=== PATIENT | female | born 1975 | race Caucasian/White ===

== ENCOUNTER 2016-05-26 02:31 | Inpatient (IN) | payer OTHER ==
[~2016-05-26] VITALS: Ht 175.3 cm; Wt 72.0 kg
[2016-05-26] MEDS ORDERED: ONDANSETRON INJ 2 MG/ML 2 ML VIAL IV STA (02:44)
[2016-05-26] MEDS ORDERED: SODIUM CHLORIDE 0.9% 1000ML 1,000 ML IV STA ×2 (02:44)
[2016-05-26] MEDS ORDERED: HYDROmorphone INJ 2 MG/ML SYR/VIAL IV STA (02:44)
[2016-05-26] MEDS ORDERED: OPTIRAY 320 IV PRN (03:00)
[2016-05-26 03:02] LABS: BASO % 0.1 %; BASO ABS # 0.01 K/uL (0-0.2); COMPLETE YES; EOS % 0.2 %; HEMATOCRIT 37.5 % (37-47); IG% 0.2 %; LYMPH % 24.6 %; LYMPH ABS # 3.07 K/uL (1.2-3.4); MEAN CELL VOLUME 90.8 fL (80-100); MEAN CORPUSCULAR HEMOGLOBIN 31.7 pg (25-34); MEAN CORPUSCULAR HGB CONC 34.9 g/dl (32-36); MEAN PLATELET VOLUME 9.7 fL (7.4-10.4); MONO % 5.5 %; NEUT % 69.4 %; PLATELET COUNT 134 K/uL (130-400); RED BLOOD COUNT 4.13 M/uL (4.2-5.4)
[2016-05-26 03:11] LABS: PARTIAL THROMBOPLASTIN RATIO 0.8; PROTHROMBIN TIME (PATIENT) 10.3 SECONDS (9.0-12.0)
[2016-05-26 03:12] LABS: ISTAT CREATININE 0.7 mg/dl (0.6-1.3); ISTAT HEMOGLOBIN 12.9 g/dl (12.0-16.0); ISTAT IONIZED CALCIUM 1.05 mmol/l (1.12-1.32)
[2016-05-26 03:18] LABS: URINE APPEARANCE CLEAR (CLEAR); URINE BILIRUBIN NEG (NEG); URINE COLOR YELLOW; URINE EPITHELIAL CELL AUTO >30 /lpf (0-5); URINE NITRITE NEG (NEG); URINE PH 6.5 (4.5-7.5); URINE SPECIFIC GRAVITY 1.017 (1.000-1.030); UROBILINOGEN NEG (NEG); ZZUR CULT IF INDIC CLEAN CATCH YES
[2016-05-26 03:19] LABS: MANUAL MICROSCOPIC REQUIRED? NO; REVIEW REQ? YES
[2016-05-26 03:22] LABS: ALT/SGPT 163 U/L (12-78); AST/SGOT 113 U/L (15-37); BLOOD UREA NITROGEN 11 mg/dl (7-18); BUN/CREATININE RATIO 12.3 (10-20); CALCIUM 8.2 mg/dl (8.5-10.1); CARBON DIOXIDE 24 mmol/L (21-32); CHLORIDE 106 mmol/L (98-107); CREATININE 0.88 mg/dl (0.60-1.20); GLUCOSE 102 mg/dl (70-99); POTASSIUM 3.3 mmol/L (3.5-5.1); SODIUM 141 mmol/L (136-145)
[2016-05-26 03:28] LABS: ALKALINE PHOSPHATASE 57 U/L (45-117)
[2016-05-26 03:30] LABS: PREG INTERNAL NEGATIVE QC NEG CLEAR BACKGROUND; PREG INTERNAL POSITIVE QC POS CONTROL LINE
[2016-05-26 03:32] LABS: URINE MUCUS PRESENT (NONE PRSENT)
[2016-05-26] MEDS ORDERED: HYDROmorphone INJ 1 MG/ML SYR IV STA (03:33)
[2016-05-26] MEDS ORDERED: LEVO150T PO ×2 (03:45)
[2016-05-26] MEDS ORDERED: TRAM-10 PO ×2 (03:46)
[2016-05-26] MEDS ORDERED: ONDA4TAB46 PO ×2 (03:46)
[2016-05-26] MEDS ORDERED: MULT-506 PO ×2 (03:46)
[2016-05-26] MEDS ORDERED: BCPILLS PO ×2 (03:46)
--- NOTE | 2016-05-26 04:38 | EMERGENCY ROOM VISIT NOTE ---
History First contact with patient: 02:37 Chief Complaint: RESPIRATORY PROBLEMS Stated Complaint: S/P SURGERY TUESDAY CAN'T BREATHE Nursing Triage Summary: Patient presents with c/o SOB that awoke patient from sleep around 0200 this morning. Associates lightheadedness, diaphoresis, and weakness. Hx: liver embolization on Tuesday. 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 This is the second time this was done. No Complications with the first one. Patient states the pain started abruptly 2 hours ago. She describes it as severe, 8 out of 10. Nothing makes it better or worse. Patient is on control. She does not smoke. No history DVT, PE or heart disease. No family history of DVT or PE. There is a family history of heart disease. Patient denies fever, chills, vomiting, diarrhea, leg pain or swelling, back pain. Patient's liver specialist is Dr. Lau and her surgeon was Dr. Ibrahim at [facility]. Review of Systems See HPI for pertinent positives & negatives. A total of 10 systems reviewed and were otherwise negative. Past Medical/Surgical History Hypothyroidism, liver embolization Social History Smoking Status: Never Smoker Smokeless Tobacco Use: No Drug Use: none Marital Status: Housing Status: lives with family Current/Historical Medications Scheduled Control Pills ( Control Pills), 1 TAB PO DAILY Levothyroxine Sodium (Synthroid), 150 MCG PO DAILY Multivitamin (Multivitamin), 1 TAB PO DAILY Scheduled PRN Ondansetron Hcl (Zofran), 4 MG PO Q6 PRN for Nausea Tramadol (Ultram), 50 MG PO Q6 PRN for Pain Allergies Coded Allergies: Penicillins (Verified Allergy, Unknown, 05/26/16) Vancomycin (Verified Allergy, Unknown, ANAPHYLAXIS, 05/26/16) Adhesives (Verified Adverse Reaction, Unknown, "SENSITIVE TO TAPE", 05/26/16 ) Physical Exam Vital Signs Date Time Temp Pulse Resp B/P Pulse Ox O2 Delivery O2 Flow Rate FiO2 05/26/16 05:06 87 16 104/55 100 05/26/16 04:28 87 16 104/55 100 Room Air 05/26/16 03:31 68 16 112/62 100 Room Air 05/26/16 02:50 Room Air 05/26/16 02:50 Room Air 05/26/16 02:49 73 05/26/16 02:34 100 Room Air 05/26/16 02:34 36.5 78 26 110/70 99 Room Air Physical Exam VITALS: Vitals are noted on the nurse's note and reviewed by myself. Vital signs stable. GENERAL: White female anxious appearing who appears in pain, in no acute distress, nondiaphoretic, well-developed well-nourished. SKIN: The skin was without rashes, erythema, edema, or bruising. There is no tenting of the skin. Capillary reflex less than 2 seconds. HEAD: Normocephalic atraumatic. EARS: External auditory canals clear, tympanic membranes pearly campa without erythema or effusion bilaterally. EYES: Pupils equal round and reactive to light and accommodation. Conjunctivae without injection, sclerae without icterus. Extraocular movements intact. NOSE: Patent, turbinates without inflammation or discharge. MOUTH: Mucous membranes moist. Pharynx without erythema or exudate. Uvula midline. Airway patent. Tongue does not deviate. NECK: Supple without nuchal rigidity. No lymphadenopathy. No thyromegaly. Cervical spine is nontender. No JVD. HEART: Regular rate and rhythm without murmurs gallops or rubs. LUNGS: Clear to auscultation bilaterally without wheezes, rales or rhonchi. No dullness to percussion. No retractions or accessory muscle use. ABDOMEN: Positive bowel sounds x 4. Normal tympanic percussion. Soft, tender to palpation right upper quadrant, no CVA tenderness, without masses or organomegaly. Pruett sign negative. No guarding or rebound tenderness. MUSCULOSKELETAL: No muscle atrophy, erythema, or edema noted. NEURO: Patient was alert and oriented to person place and time. Normal sensation to light and sharp touch. No focal neurological deficits. Medical Decision & Procedures Laboratory Results 05/26/16 02:49 Red Blood Count 4.13, Mean Corpuscular Volume 90.8, Mean Corpuscular Hemoglobin 31.7, Mean Corpuscular Hemoglobin Concent 34.9, Mean Platelet Volume 9.7, Neutrophils (%) (Auto) 69.4, Lymphocytes (%) (Auto) 24.6, Monocytes (%) (Auto) 5.5, Eosinophils (%) (Auto) 0.2, Basophils (%) (Auto) 0.1, Neutrophils # (Auto) 8.68, Lymphocytes # (Auto) 3.07, Monocytes # (Auto) 0.69, Eosinophils # (Auto) 0.02, Basophils # (Auto) 0.01 05/26/16 02:49 Test 05/26/16 02:49 05/26/16 02:55 05/26/16 03:07 White Blood Count 12.50 K/uL (4.8-10.8) Red Blood Count 4.13 M/uL (4.2-5.4) Hemoglobin 13.1 g/dL (12.0-16.0) Hematocrit 37.5 % (37-47) Mean Corpuscular Volume 90.8 fL (80-100) Mean Corpuscular Hemoglobin 31.7 pg (25-34) Mean Corpuscular Hemoglobin Concent 34.9 g/dl (32-36) Platelet Count 134 K/uL (130-400) Mean Platelet Volume 9.7 fL (7.4-10.4) Neutrophils (%) (Auto) 69.4 % Lymphocytes (%) (Auto) 24.6 % Monocytes (%) (Auto) 5.5 % Eosinophils (%) (Auto) 0.2 % Basophils (%) (Auto) 0.1 % Neutrophils # (Auto) 8.68 K/uL (1.4-6.5) Lymphocytes # (Auto) 3.07 K/uL (1.2-3.4) Monocytes # (Auto) 0.69 K/uL (0.11-0.59) Eosinophils # (Auto) 0.02 K/uL (0-0.5) Basophils # (Auto) 0.01 K/uL (0-0.2) RDW Standard Deviation 43.2 fL (36.4-46.3) RDW Coefficient of Variation 13.1 % (11.5-14.5) Immature Granulocyte % (Auto) 0.2 % Immature Granulocyte # (Auto) 0.03 K/uL (0.00-0.02) Prothrombin Time 10.3 SECONDS (9.0-12.0) Prothromb Time International Ratio 1.0 (0.9-1.1) Activated Partial Thromboplast Time 21.1 SECONDS (21.0-31.0) Partial Thromboplastin Ratio 0.8 Est Creatinine Clear Calc Drug Dose 89.7 ml/min Estimated GFR () 95.9 Estimated GFR (Non- 82.8 BUN/Creatinine Ratio 12.3 (10-20) Calcium Level 8.2 mg/dl (8.5-10.1) Total Bilirubin 0.3 mg/dl (0.2-1) Direct Bilirubin 0.1 mg/dl (0-0.2) Aspartate Amino Transf (AST/SGOT) 113 U/L (15-37) Alanine Aminotransferase (ALT/SGPT) 163 U/L (12-78) Alkaline Phosphatase 57 U/L (45-117) Total Creatine Kinase 39 U/L (26-192) Creatine Kinase MB < 0.5 ng/ml (0.5-3.6) Creatine Kinase MB Ratio (0-3.0) Troponin I < 0.015 ng/ml (0-0.045) Total Protein 6.6 gm/dl (6.4-8.2) Albumin 3.0 gm/dl (3.4-5.0) Lipase 2258 U/L (73-393) Human Chorionic Gonadotropin, Qual NEG (NEG) Bedside Hemoglobin 12.9 g/dl (12.0-16.0) Bedside Hematocrit 38 % (37-47) Bedside Sodium 139 mEq/L (135-144) Bedside Potassium 3.2 mEq/L (3.3-5.0) Bedside Chloride 103 mEq/L (101-112) Bedside Total CO2 20 mEq/l (24-31) Anion Gap 20.0 mmol/L (16-25) Bedside Blood Urea Nitrogen 10 mg/dl (7-18) Bedside Creatinine 0.7 mg/dl (0.6-1.3) Bedside Glucose (other) 108 mg/dl (70-99) Bedside Ionized Calcium (Steve) 1.05 mmol/l (1.12-1.32) Urine Color YELLOW Urine Appearance CLEAR (CLEAR) Urine pH 6.5 (4.5-7.5) Urine Specific [place] 1.017 (1.000-1.030) Urine Protein NEG (NEG) Urine Glucose (UA) NEG (NEG) Urine Ketones NEG (NEG) Urine Occult Blood NEG (NEG) Urine Nitrite NEG (NEG) Urine Bilirubin NEG (NEG) Urine Urobilinogen NEG (NEG) Urine Leukocyte Esterase MODERATE (NEG) Urine WBC (Auto) 5-10 /hpf (0-5) Urine RBC (Auto) 0-4 /hpf (0-4) Urine Hyaline Casts (Auto) 0 /lpf (0-5) Urine Epithelial Cells (Auto) >30 /lpf (0-5) Urine Bacteria (Auto) 1+ (NEG) Urine Renal Epithelial Cells /lpf (0-5) Urine Mucus PRESENT (NONE PRSENT) Medications Administered Medications (Trade) Dose Ordered Sig/Jurgen Route Start Time Stop Time Status Last Admin Dose Admin Sodium Chloride 1,000 ml @ 999 mls/hr Q1H1M STAT IV 05/26/16 02:44 05/26/16 03:44 DC 05/26/16 02:56 999 MLS/HR Sodium Chloride (Nss 1000ml) 1,000 ml @ 125 mls/hr Q8H STAT IV 05/26/16 02:44 05/26/16 10:43 05/26/16 03:39 125 MLS/HR Hydromorphone HCl (Dilaudid Inj) 0.5 mg ONE STAT IV 05/26/16 02:44 05/26/16 02:46 DC 05/26/16 02:55 0.5 MG Ondansetron HCl (Zofran Inj) 4 mg NOW STAT IV 05/26/16 02:44 05/26/16 02:46 DC 05/26/16 02:53 4 MG Hydromorphone HCl (Dilaudid Inj) 1 mg NOW STAT IV 05/26/16 03:33 05/26/16 03:34 DC 05/26/16 03:40 1 MG Hydromorphone HCl (Dilaudid Inj) 1 mg Q4 PRN IV 05/26/16 05:15 06/09/16 05:14 05/26/16 05:16 1 MG Potassium Chloride (Kcl 10 Meq / Wtr) 10 meq STK-MED ONCE IV 05/26/16 05:07 05/26/16 05:08 DC 05/26/16 05:15 10 MEQ ED Course Prior records/ancillary studies reviewed. Triage Nursing notes reviewed. Additional history obtained from family The patient's history was concerning for right-sided chest and abdominal pain. Differential diagnosis: Etiologies such as postsurgical complication, PE, cardiac, appendicitis, diverticulitis, PUD, biliary pathology, UTI, pancreatitis, obstruction, mesenteric ischemia, aortic pathology, infections, inflammatory bowel disease, renal colic, as well as others were entertained. Physical examination findings: As above. ER treatment provided: Dilaudid, Zofran, IV fluids On reassessment the patient felt better. Diagnostics interpreted by me: ECG: Normal sinus, normal intervals, no acute ST-T wave changes. Impression normal sinus rhythm interpreted by myself The labs revealed elevated lipase. Minimally elevated LFTs most likely from recent procedure Leukocytosis. Stable H&H Imaging studies: TA CHEST: No acute intrathoracic process. No evidence of pulmonary embolism or aortic dissection. CT ABDOMEN & PELVIS: Compared to 03/26/2015. Dense material in the right hepatic lobe compatible with history of embolization with central low attenuation. Subcutaneous stranding in the right inguinal region may be related to recent instrumentation or inflammatory/infectious process. Prominent parauterine vessels, can be seen with pelvic congestion syndrome. Calcific density in the uterus again noted. Trace pelvic free fluid. No organized fluid collections or free air. Radiologist: Jennifer Chavez M.D. Chest x-ray with no free air, pneumothorax or consolidation per my interpretation Consultation: A consultation was placed with the hepatobiliary surgeon at [facility], Dr. Sarkar. The case was discussed and diagnostics were reviewed. He states the patient most likely is postsurgical pain and pancreatitis. He recommends patient be admitted at our facility. I Consulted medicine, Dr. Ortiz and will evaluate the patient. Exam and history seem consistent with pancreatitis and postsurgical pain. Patient will be evaluated by medicine for possible admission. By the evaluation outlined above emergent etiologies such as appendicitis, diverticulitis, PUD, biliary pathology, UTI, obstruction, mesenteric ischemia , aortic pathology, infections, inflammatory bowel disease, renal colic, as well as others were deemed relatively unlikely. The pt informed about the findings as listed above. All questions were answered and pleased with the treatment. Case reviewed by attending. Medical Decision As above Impression Primary Impression: Pancreatitis Additional Impression: Hypokalemia Departure Information Dispostion Being Evaluated By Hospitalist Condition FAIR Referrals Celi Agustin D.O. (PCP) Patient Instructions My [facility] Problem Qualifiers Primary Impression: Pancreatitis Chronicity: acute Pancreatitis type: unspecified pancreatitis type Acute pancreatitis complication: unspecified Qualified Codes: K85.90 - Acute pancreatitis without necrosis or infection, unspecified
[2016-05-26] MEDS ORDERED: POTASSIUM CHLR 10 MEQ / WTR 10 MEQ in PREMIXED WATER 100 ML IV STA (05:01)
--- NOTE | 2016-05-26 05:06 | History and Physical ---
History & Physical Date & Time of Service: May 26, 2016 at 05:05 Chief Complaint: S/P Surgery Tuesday Can't Breathe Primary Care Physician: Celi Agustin D.O. History of Present Illness Source: patient Ms Zaidi is a 40 yo F with hx of ADD , endometriosis , hypothyroidism , PCOS , rt hepatic lobe hemangiomas -underwent Hepatic angiogram with embolization of hemangioma in May 2015 in [facility] pt continued to have RUQ pain and discomfort evaluated at [facility] by IR , underwent repeat hepatic angiogram with embolization yesterday 05/24/16 stayed overnight in [facility], post procedure had mild aching pain in RUQ , no nausea, no fever or chills was discharged home around 11 am at home pt continued to have aching pain in RUQ with radiation to back and between her shoulder around 10 pm -felt very nauseous , no vomiting felt 10/10 pain sharp at RUQ , associated with sweating, Shortness of breath and dizzy spell came to ED CT chest with contrast shows -no evidence of PE or aortic dissection CT abdomen /pelvis contrast study : dense material in the rt hepatic lobe compatible with history of embolization with central low attenuation -co relates to recent post procedure status pt had mild leukocytosis WBC 12 K Lipase elevated > 2000 pt will be admitted to medical floor [facility] Hospitalist service Family History Family History Problem Relation Age of Onset Comments Cancer Maternal Grandmother breast, postmenopausal, . Diabetes Father Diabetes Paternal Grandmother Hypertension Father Social History Smoking Status: Never Smoker Smokeless Tobacco Use: No Drug Use: none Marital Status: Multi-Drug Resistant Organisms History of MDRO: No Allergies Coded Allergies: Penicillins (Verified Allergy, Unknown, 05/26/16) Vancomycin (Verified Allergy, Unknown, ANAPHYLAXIS, 05/26/16) Adhesives (Verified Adverse Reaction, Unknown, "SENSITIVE TO TAPE", 05/26/16 ) Home Medications Scheduled Control Pills ( Control Pills), 1 TAB PO DAILY Levothyroxine Sodium (Synthroid), 150 MCG PO DAILY Multivitamin (Multivitamin), 1 TAB PO DAILY Scheduled PRN Ondansetron Hcl (Zofran), 4 MG PO Q6 PRN for Nausea Tramadol (Ultram), 50 MG PO Q6 PRN for Pain Review of Systems Constitutional: No chills, No fatigue, No fever, No problem reported, No sweats , No weakness, No weight loss Respiratory: No cough, No dyspnea at rest, No dyspnea on exertion, No hemoptysis, No problem reported, No shortness of breath, No sputum, No wheezing Cardiovascular: No PND, No chest pain, No claudication, No edema, No orthopnea , No palpitations, No problem reported Abdomen: + nausea, + pain Musculoskeletal: No calf pain, No joint pain, No muscle pain, No problem reported, No swelling Neurologic: No balance problems, No memory loss, No numbness/tingling, No paralysis, No problem reported, No vertigo, No weakness Physical Exam Vital Signs Date Time Temp Pulse Resp B/P Pulse Ox O2 Delivery O2 Flow Rate FiO2 05/26/16 04:28 87 16 104/55 100 Room Air 05/26/16 03:31 68 16 112/62 100 Room Air 05/26/16 02:50 Room Air 05/26/16 02:50 Room Air 05/26/16 02:49 73 05/26/16 02:34 100 Room Air 05/26/16 02:34 36.5 78 26 110/70 99 Room Air General Appearance: no apparent distress Head: normocephalic, atraumatic Eyes: PERRL, EOMI, sclerae normal Neck: no JVD, no carotid bruits, trachea midline Respiratory/Chest: chest non-tender, lungs clear, normal breath sounds, no respiratory distress Cardiovascular: regular rate, rhythm, no edema, no JVD Abdomen/GI: soft, + pertinent finding (ruq mild tenderness ) Back: no CVA tenderness Extremities/Musculoskelatal: normal capillary refill, no pedal edema, + pertinent finding (rt groin IR catheter insertion site intact , no bleeding or hematoma ) Diagnostics Laboratory Results Results Past 24 Hours Test 05/26/16 02:49 05/26/16 02:55 05/26/16 03:07 Range/Units White Blood Count 12.50 4.8-10.8 K/uL Red Blood Count 4.13 4.2-5.4 M/uL Hemoglobin 13.1 12.0-16.0 g/dL Hematocrit 37.5 37-47 % Mean Corpuscular Volume 90.8 80-100 fL Mean Corpuscular Hemoglobin 31.7 25-34 pg Mean Corpuscular Hemoglobin Concent 34.9 32-36 g/dl Platelet Count 134 130-400 K/uL Mean Platelet Volume 9.7 7.4-10.4 fL Neutrophils (%) (Auto) 69.4 % Lymphocytes (%) (Auto) 24.6 % Monocytes (%) (Auto) 5.5 % Eosinophils (%) (Auto) 0.2 % Basophils (%) (Auto) 0.1 % Neutrophils # (Auto) 8.68 1.4-6.5 K/uL Lymphocytes # (Auto) 3.07 1.2-3.4 K/uL Monocytes # (Auto) 0.69 0.11-0.59 K/uL Eosinophils # (Auto) 0.02 0-0.5 K/uL Basophils # (Auto) 0.01 0-0.2 K/uL RDW Standard Deviation 43.2 36.4-46.3 fL RDW Coefficient of Variation 13.1 11.5-14.5 % Immature Granulocyte % (Auto) 0.2 % Immature Granulocyte # (Auto) 0.03 0.00-0.02 K/uL Prothrombin Time 10.3 9.0-12.0 SECONDS Prothromb Time International Ratio 1.0 0.9-1.1 Activated Partial Thromboplast Time 21.1 21.0-31.0 SECONDS Partial Thromboplastin Ratio 0.8 Sodium Level 141 136-145 mmol/L Potassium Level 3.3 3.5-5.1 mmol/L Chloride Level 106 98-107 mmol/L Carbon Dioxide Level 24 21-32 mmol/L Anion Gap 11.0 20.0 16-25 mmol/L Blood Urea Nitrogen 11 7-18 mg/dl Creatinine 0.88 0.60-1.20 mg/dl Est Creatinine Clear Calc Drug Dose 89.7 ml/min Estimated GFR () 95.9 Estimated GFR (Non- 82.8 BUN/Creatinine Ratio 12.3 10-20 Random Glucose 102 70-99 mg/dl Calcium Level 8.2 8.5-10.1 mg/dl Total Bilirubin 0.3 0.2-1 mg/dl Direct Bilirubin 0.1 0-0.2 mg/dl Aspartate Amino Transf (AST/SGOT) 113 15-37 U/L Alanine Aminotransferase (ALT/SGPT) 163 12-78 U/L Alkaline Phosphatase 57 45-117 U/L Total Creatine Kinase 39 26-192 U/L Creatine Kinase MB < 0.5 0.5-3.6 ng/ml Creatine Kinase MB Ratio 0-3.0 Troponin I < 0.015 0-0.045 ng/ml Total Protein 6.6 6.4-8.2 gm/dl Albumin 3.0 3.4-5.0 gm/dl Lipase 2258 73-393 U/L Human Chorionic Gonadotropin, Qual NEG NEG Bedside Hemoglobin 12.9 12.0-16.0 g/dl Bedside Hematocrit 38 37-47 % Bedside Sodium 139 135-144 mEq/L Bedside Potassium 3.2 3.3-5.0 mEq/L Bedside Chloride 103 101-112 mEq/L Bedside Total CO2 20 24-31 mEq/l Bedside Blood Urea Nitrogen 10 7-18 mg/dl Bedside Creatinine 0.7 0.6-1.3 mg/dl Bedside Glucose (other) 108 70-99 mg/dl Bedside Ionized Calcium (Steve) 1.05 1.12-1.32 mmol/l Urine Color YELLOW Urine Appearance CLEAR CLEAR Urine pH 6.5 4.5-7.5 Urine Specific [place] 1.017 1.000-1.030 Urine Protein NEG NEG Urine Glucose (UA) NEG NEG Urine Ketones NEG NEG Urine Occult Blood NEG NEG Urine Nitrite NEG NEG Urine Bilirubin NEG NEG Urine Urobilinogen NEG NEG Urine Leukocyte Esterase MODERATE NEG Urine WBC (Auto) 5-10 0-5 /hpf Urine RBC (Auto) 0-4 0-4 /hpf Urine Hyaline Casts (Auto) 0 0-5 /lpf Urine Epithelial Cells (Auto) >30 0-5 /lpf Urine Bacteria (Auto) 1+ NEG Urine Renal Epithelial Cells 0-5 /lpf Urine Mucus PRESENT NONE PRSENT Microbiology Results 05/26/16 Urine Culture, Received Pending Diagnostic Radiology CT CHEST WITH CONTRAST : CT ABDOMEN /PELVIS WITH CONTRAST : STATRAD no evidence of PE or aortic dissection No acute intrathoracic process dense material in the rt hepatic lobe compatible with history of embolization with central low attenuation . CXR normal Impression Assessment and Plan ABDOMINAL PAIN : s/p Hepatic arteriogram with Embolization of rt hepatic lobe Hemangioma yesterday CT abdomen /pelvis shows post procedure change pt was discharged with Ciprofloxacin for 5 days which is continued supportive care pain control ACUTE PANCREATITIS : possible due to embolization procedure bowel rest -clear liq diet for now IV fluid pain control repeat Lipase level in AM GI eval requested , pt is known to Dr Al RENO K : due to poor PO intake no report of vomiting or diarrhea replaced follow PRP MILD LEUKOCYTOSIS: post procedure no fever or chills UA + leukocyte esterase , pt denies of any urinary symptom urine culture ordered empiric ABx with Ciprofloxacin FULL CODE DVT PROPHYLAXIS : LOW RISK scd and teds ambulate DISPOSITION : expected to discharge home when medically stable Medicine follow up with Dr Celi Edge VTE Prophylaxis VTE Risk Assessment Done? Y/N: Yes Risk Level: Low
[2016-05-26] MEDS ORDERED: POTASSIUM CHLORIDE 10 MEQ / 100ML WTR IV ONE (05:07)
[2016-05-26] MEDS ORDERED: ALUMINUM/MAGNESIUM/SIMETH (MAALOX MAX) 30 ML UDC PO PRN (05:15)
[2016-05-26] MEDS ORDERED: MAGNESIUM HYDROXIDE SUSP 30 ML UDC PO PRN (05:15)
[2016-05-26] MEDS ORDERED: ACETAMINOPHEN 325 MG TAB PO PRN (05:15)
[2016-05-26] MEDS ORDERED: POLYETHYLENE (MIRALAX) 17 GM PACK PO PRN (05:15)
[2016-05-26] MEDS: HYDROmorphone INJ 1 MG/ML SYR IV PRN ×2 (05:16→07:28)
[2016-05-26] MEDS ORDERED: ALBUTEROL HFA 8 GM INHALER INH PRN (05:45)
[2016-05-26] MEDS ORDERED: NSS + 20MEQ KCL 1000ML 1,000 ML IV SCH (06:00)
[2016-05-26] MEDS: CIPROFLOXACIN / D5W 400 MG in PREMIXED IN D5W 200 ML IV SCH ×2 (06:22→18:41)
[2016-05-26] MEDS: LEVOTHYROXINE 150 MCG TAB PO SCH (06:23)
[2016-05-26 06:53] VITALS: Ht 175.3 cm; Wt 72.0 kg
[2016-05-26] MEDS: PANTOprazole SOD 40 MG TAB PO SCH (07:28)
[2016-05-26] MEDS: MULTIVITAMIN TAB PO SCH (07:28)
[2016-05-26] MEDS: ONDANSETRON INJ 2 MG/ML 2 ML VIAL IV PRN (07:36)
--- NOTE | 2016-05-26 07:39 | DIAGNOSTIC IMAGING REPORT ---
CT OF THE ABDOMEN AND PELVIS WITH CONTRAST CLINICAL HISTORY: Severe right upper quadrant abdominal pain after liver embolization 2 days. COMPARISON STUDY: MRI of the liver April 07, [address] of the abdomen and pelvis March 26, 2015. TECHNIQUE: Following IV administration of 93 mL of Optiray-320, axial images of the abdomen and pelvis were obtained from the lung bases to the proximal femurs. Images were reviewed in the axial, sagittal, and coronal planes. IV contrast was administered without complication. CT DOSE: 607.26 mGy.cm FINDINGS: The chest will be reported separately. No pneumatosis, free air or portal venous gas is present. A hypodense segment 6 hepatic lesion with peripheral enhancement is again noted. This lesion measures approximately 5.5 cm. There is hyperdense material at the periphery of this lesion as well as within the liver parenchyma adjacent to this lesion, more pronounced inferiorly. This is consistent with recent embolization. There is no perihepatic fluid. No biliary ductal dilatation is present. The spleen, adrenal glands, kidneys are normal. There is mild infiltration adjacent to the pancreatic tail. The caliber and wall thickness of small and large bowel are normal. There is trace fluid within the pelvis. There is moderate infiltration within the right groin adjacent to the right femoral vessels. No large hematoma is identified. No pseudoaneurysm is identified. Skeletal structures are unremarkable. There are prominent uterine vessels, a nonspecific finding. IMPRESSION: 1. Redemonstration of the right hepatic lobe lesion suggestive of a hemangioma. Hyperdense material is now noted at the periphery of this lesion as well as within the adjacent liver , consistent with recent embolization. No perihepatic fluid. 2. Moderate right groin infiltration which is related to recent procedure. No large hematoma. No pseudoaneurysm identified on this non-CTA exam. 3. Mild infiltration adjacent to the pancreatic tail which raises the possibility of acute pancreatitis. This could be correlated with biochemical evidence for acute pancreatitis. Electronically signed by: Jewel Watkins M.D. 05/26/2016 7:38 AM Dictated Date/Time: 05/26/2016 7:16 AM
[2016-05-26 07:40] VITALS: BP 102/64; PULSE 63; TEMP 36.6; O2SAT 100
--- NOTE | 2016-05-26 07:40 | DIAGNOSTIC IMAGING REPORT ---
CT ANGIOGRAM OF THE CHEST CLINICAL HISTORY: Atypical chest pain. Recent liver embolization. COMPARISON STUDY: Chest x-ray dated 05/26/16. TECHNIQUE: Following the IV administration of 93 cc of Optiray 320, CT angiogram of the chest was performed from the upper abdomen to the thoracic inlet utilizing the pulmonary embolus protocol. Images are reviewed in the axial, sagittal, and coronal planes. 3-D MIPS images are created and assessed. IV contrast was administered without complication. FINDINGS: Thyroid: Imaged portions of the thyroid gland are normal in size and attenuation. Thoracic aorta: The thoracic aorta is normal in caliber and demonstrates standard 3-vessel arch anatomy. No dissection is seen. Pulmonary vasculature: The pulmonary trunk is normal in caliber. There are no filling defects identified in main, lobar, or segmental pulmonary branches to suggest pulmonary embolus. Heart: The heart is normal in size and configuration, and without pericardial effusion. Lungs and pleural spaces: The lungs and pleural spaces are clear. The trachea and central airways are patent. Mediastinum: There is no mediastinal lymphadenopathy. Brenda: Clear. Axillae: There is no axillary lymphadenopathy. Upper abdomen: Hyperdense embolization material is identified in the right lobe of the liver at the site of a previously characterized low-attenuation hepatic lesion. No perihepatic fluid is seen around the imaged liver. There is trace stranding and fluid seen around the distal pancreatic body and tail. Skeletal structures: No lytic or blastic bony lesions are seen. IMPRESSION: 1. There is no evidence of pulmonary embolus in the main, lobar, or segmental pulmonary arteries. 2. The lungs are clear. 3. Hyperdense embolization material is noted within a low-attenuation lesion in the right hepatic lobe. This is consistent with the reported history of hepatic embolization. 4. Findings suggest mild acute pancreatitis. Correlation with serum lipase levels will be required. See report of abdominal CT performed concurrently for detailed intra-abdominal findings. Electronically signed by: Gurdeep Benson M.D. 05/26/2016 7:39 AM Dictated Date/Time: 05/26/2016 7:34 AM
[2016-05-26 07:42] LABS: HEMATOCRIT 33.6 % (37-47); MEAN CELL VOLUME 93.3 fL (80-100); MEAN CORPUSCULAR HEMOGLOBIN 31.4 pg (25-34); MEAN CORPUSCULAR HGB CONC 33.6 g/dl (32-36); MEAN PLATELET VOLUME 9.9 fL (7.4-10.4); PLATELET COUNT 126 K/uL (130-400); WHITE BLOOD COUNT 10.73 K/uL (4.8-10.8)
--- NOTE | 2016-05-26 07:43 | DIAGNOSTIC IMAGING REPORT ---
SINGLE VIEW CHEST CLINICAL HISTORY: Atypical chest pain. Dyspnea. FINDINGS: An AP, portable, upright chest radiograph is obtained. No prior studies are available for comparison at the time of dictation. The examination is degraded by portable technique and patient rotation. The cardiomediastinal silhouette is unremarkable. There is minimal left basilar atelectasis. The lungs and pleural spaces are otherwise clear. No pneumothorax is seen. The bony thorax is grossly intact. IMPRESSION: No active disease in the chest. Electronically signed by: Gurdeep Benson M.D. 05/26/2016 7:42 AM Dictated Date/Time: 05/26/2016 7:42 AM
[2016-05-26 07:59] LABS: BUN/CREATININE RATIO 11.9 (10-20); CALCIUM 7.5 mg/dl (8.5-10.1); CREATININE 0.7 mg/dl (0.60-1.20); POTASSIUM 3.7 mmol/L (3.5-5.1)
--- NOTE | 2016-05-26 08:20 | Gastrointestinal Consultation ---
Gastrointestinal Consultation Date of Consultation: May 26, 2016 Attending Physician: Dr. Ortiz Consulting Physician: Dr. Melendez Reason for Consultation: Pancreatitis History of Present Illness Patient is a 40 year old female patient of Dr. Celi Agustin with a hx of ADD, endometriosis, hypothyroidism, PCOS who underwent hepatic angiogram with embolization of hemangioma at [facility] in April and again on 05/24/16. After the procedure, she noticed RUQ pain with radiation to the back that worsened around 10 PM last night. She also had nausea, diaphoresis, SOB and a felt dizzy. She did not have vomiting, fevers, jaundice, icterus, dark urine. She presented to the ED for these symptoms and GI is consulted for pancreatitis. On arrival, CT with evidence of recent embolization and mild infiltration adjacent to the pancreatic tail. Lipase was >2000 and this morning is 1785. . WBC was elevated at 12.5 which resolved this morning. Cr is normal at 0.7. Transaminases were elevated at AST 113, ALT 163 and are slightly improved this morning. She was initially sleeping when I entered the room, but awakened with verbal stimuli. She continues with upper abdomen pain but it is improved compared to prior to admission. Phenergan is effective for the nausea. She denies any increased alcohol intake (about 6 drinks/year) and has never had prior similar symptoms. Past Medical/Surgical History Medical Problems: (1) Hypokalemia Status: Acute (2) Pancreatitis Status: Acute Past Medical History: 1. ADD 2. Endometriosis 3. Hypothyroidism 4. PCOS 5. Right lobe hepatic hemangiomas Past Surgical History: No prior surgeries. Social History Smoking Status: Never Smoker Drug Use: none Marital Status: Housing Status: lives with family Allergies Coded Allergies: Penicillins (Verified Allergy, Unknown, 05/26/16) Vancomycin (Verified Allergy, Unknown, ANAPHYLAXIS, 05/26/16) Adhesives (Verified Adverse Reaction, Unknown, "SENSITIVE TO TAPE", 05/26/16 ) Current Medications Home Meds and Scripts Medications Dose Route/Sig Max Daily Dose Days Date Category Multivitamin (Multivitamins) Tab 1 Tab PO DAILY 05/26/16 Reported Zofran (Ondansetron HCl) 4 Mg Tab 4 Mg PO Q6 PRN 05/26/16 Reported Ultram (Tramadol HCl) 50 Mg Tab 50 Mg PO Q6 PRN 05/26/16 Reported Control Pills (Miscellaneous) Tab 1 Tab PO DAILY 05/26/16 Reported Synthroid (Levothyroxine Sodium) 150 Mcg Tab 150 Mcg PO DAILY 05/26/16 Reported Review of Systems Constitutional: No chills, No fever, No sweats, No weakness, No weight loss Eyes: No eye pain, No redness ENT: No pain on swallowing, No sore throat, No trouble swallowing Respiratory: No cough, No dyspnea on exertion, No shortness of breath, No wheezing Cardiac: No chest pain, No edema, No palpitations Abdomen: + nausea, + pain, + see HPI, No GI bleeding, No acolic stools, No constipation, No dark urine, No diarrhea, No jaundice, No vomiting Neuro: No balance problems, No memory loss, No numbness/tingling, No vertigo, No weakness Psych: No anxiety, No depression symptoms, No insomnia Heme: No abnormal bleeding/bruising, No night sweats Endo: No excessive thirst, No excessive urination Skin: No itch, No jaundice, No new/changing skin lesions, No rash Physical Exam Date Time Temp Pulse Resp B/P Pulse Ox O2 Delivery O2 Flow Rate FiO2 05/26/16 07:40 36.6 63 16 102/64 100 Room Air 05/26/16 06:53 Room Air 05/26/16 05:06 87 16 104/55 100 05/26/16 04:28 87 16 104/55 100 Room Air 05/26/16 03:31 68 16 112/62 100 Room Air 05/26/16 02:50 Room Air 05/26/16 02:50 Room Air 05/26/16 02:49 73 05/26/16 02:34 100 Room Air 05/26/16 02:34 36.5 78 26 110/70 99 Room Air General Appearance: no apparent distress Eyes: normal inspection, EOMI Neck: supple, no adenopathy, thyroid normal Respiratory/Chest: chest non-tender, lungs clear, normal breath sounds, no accessory muscle use Cardiovascular: regular rate, rhythm, no JVD, no murmur Abdomen: normal bowel sounds, soft, no organomegaly, + tenderness (mild epigastric tenderness) Extremities: normal inspection, no pedal edema, normal capillary refill Neurologic/Psych: alert, normal mood/affect, oriented x 3 Skin: normal color, no jaundice, warm/dry, no rash Laboratory Results Last 24 Hours Test 05/26/16 02:49 05/26/16 02:55 05/26/16 03:07 05/26/16 06:59 White Blood Count 12.50 K/uL 10.73 K/uL Red Blood Count 4.13 M/uL 3.60 M/uL Hemoglobin 13.1 g/dL 11.3 g/dL Hematocrit 37.5 % 33.6 % Mean Corpuscular Volume 90.8 fL 93.3 fL Mean Corpuscular Hemoglobin 31.7 pg 31.4 pg Mean Corpuscular Hemoglobin Concent 34.9 g/dl 33.6 g/dl Platelet Count 134 K/uL 126 K/uL Mean Platelet Volume 9.7 fL 9.9 fL Neutrophils (%) (Auto) 69.4 % Lymphocytes (%) (Auto) 24.6 % Monocytes (%) (Auto) 5.5 % Eosinophils (%) (Auto) 0.2 % Basophils (%) (Auto) 0.1 % Neutrophils # (Auto) 8.68 K/uL Lymphocytes # (Auto) 3.07 K/uL Monocytes # (Auto) 0.69 K/uL Eosinophils # (Auto) 0.02 K/uL Basophils # (Auto) 0.01 K/uL RDW Standard Deviation 43.2 fL 45.4 fL RDW Coefficient of Variation 13.1 % 13.2 % Immature Granulocyte % (Auto) 0.2 % Immature Granulocyte # (Auto) 0.03 K/uL Prothrombin Time 10.3 SECONDS Prothromb Time International Ratio 1.0 Activated Partial Thromboplast Time 21.1 SECONDS Partial Thromboplastin Ratio 0.8 Sodium Level 141 mmol/L 140 mmol/L Potassium Level 3.3 mmol/L 3.7 mmol/L Chloride Level 106 mmol/L 108 mmol/L Carbon Dioxide Level 24 mmol/L 25 mmol/L Anion Gap 11.0 mmol/L 20.0 mmol/L 7.0 mmol/L Blood Urea Nitrogen 11 mg/dl 8 mg/dl Creatinine 0.88 mg/dl 0.70 mg/dl Est Creatinine Clear Calc Drug Dose 89.7 ml/min 112.8 ml/min Estimated GFR () 95.9 126.5 Estimated GFR (Non- 82.8 109.1 BUN/Creatinine Ratio 12.3 11.9 Random Glucose 102 mg/dl 102 mg/dl Calcium Level 8.2 mg/dl 7.5 mg/dl Total Bilirubin 0.3 mg/dl 0.3 mg/dl Direct Bilirubin 0.1 mg/dl 0.1 mg/dl Aspartate Amino Transf (AST/SGOT) 113 U/L 88 U/L Alanine Aminotransferase (ALT/SGPT) 163 U/L 137 U/L Alkaline Phosphatase 57 U/L 49 U/L Total Creatine Kinase 39 U/L Creatine Kinase MB < 0.5 ng/ml Creatine Kinase MB Ratio Troponin I < 0.015 ng/ml Total Protein 6.6 gm/dl 5.8 gm/dl Albumin 3.0 gm/dl 2.7 gm/dl Lipase 2258 U/L 1785 U/L Human Chorionic Gonadotropin, Qual NEG Bedside Hemoglobin 12.9 g/dl Bedside Hematocrit 38 % Bedside Sodium 139 mEq/L Bedside Potassium 3.2 mEq/L Bedside Chloride 103 mEq/L Bedside Total CO2 20 mEq/l Bedside Blood Urea Nitrogen 10 mg/dl Bedside Creatinine 0.7 mg/dl Bedside Glucose (other) 108 mg/dl Bedside Ionized Calcium (Steve) 1.05 mmol/l Urine Color YELLOW Urine Appearance CLEAR Urine pH 6.5 Urine Specific Stryker 1.017 Urine Protein NEG Urine Glucose (UA) NEG Urine Ketones NEG Urine Occult Blood NEG Urine Nitrite NEG Urine Bilirubin NEG Urine Urobilinogen NEG Urine Leukocyte Esterase MODERATE Urine WBC (Auto) 5-10 /hpf Urine RBC (Auto) 0-4 /hpf Urine Hyaline Casts (Auto) 0 /lpf Urine Epithelial Cells (Auto) >30 /lpf Urine Bacteria (Auto) 1+ Urine Renal Epithelial Cells /lpf Urine Mucus PRESENT Impression Patient is a 40 year old female with acute pancreatitis, likely caused by the chemoembolization though there is no evidence of gallbladder or bile duct abnormalities on CT. Plan 1. Continue to follow LFTs, lipase. 2. LR at 250cc/hr x 24 hrs. 3. Clear liquids po today. 4. Will consider OP EUS in 6 wks to r/o other pancreas abnormalities and r/o gallbladder microlithiasis. Attg addendum: I interviewed and examined pt, reviewed chart and labs. Pt s/p recent embolization hemangioma, now with epigastric pain afterwards. Lipase elevated on admission, CT shows mild panc of tail, but no hemoconcentration or renal insuff. Suspect post-embolization syndrome, pancreatitis Plan supportive care with fluids, diet as dereck, pain control. Defer abx for now.
[2016-05-26] MEDS: PROMETHAZINE HCL INJ 25 MG in SODIUM CHLORIDE 0.9% 50ML 50 ML IV PRN (08:42)
[2016-05-26] MEDS ORDERED: POTASSIUM CHLR 10 MEQ / WTR 10 MEQ in PREMIXED WATER 100 ML IV ONE (09:30)
[2016-05-26] MEDS: LACTATED RINGER'S 1000ML 1,000 ML IV SCH ×4 (09:59→22:02)
[2016-05-26 12:09] VITALS: BP 92/57; PULSE 64; TEMP 36.8; O2SAT 100
[2016-05-26] MEDS: HYDROmorphone INJ 2 MG/ML SYR/VIAL IV PRN ×2 (14:35→22:02)
[2016-05-26 16:00] VITALS: O2SAT 98
[2016-05-26 16:01] VITALS: BP 96/61; PULSE 70; TEMP 36.9; O2SAT 99
[2016-05-26] MEDS: TRAMADOL HCL 50 MG TAB PO PRN (18:41)
[2016-05-26 23:20] VITALS: BP 95/61; PULSE 73; TEMP 36.7; O2SAT 97
[2016-05-27] VITALS: O2SAT 97
[2016-05-27] MEDS: LACTATED RINGER'S 1000ML 1,000 ML IV SCH ×5 (01:55→17:43)
[2016-05-27] MEDS: TRAMADOL HCL 50 MG TAB PO PRN ×3 (01:58→23:32)
[2016-05-27] MEDS: HYDROmorphone INJ 2 MG/ML SYR/VIAL IV PRN ×4 (04:19→21:52)
[2016-05-27] MEDS: LEVOTHYROXINE 150 MCG TAB PO SCH (05:47)
[2016-05-27] MEDS: CIPROFLOXACIN / D5W 400 MG in PREMIXED IN D5W 200 ML IV SCH ×2 (05:52→17:46)
[2016-05-27 06:47] LABS: HEMATOCRIT 33.8 % (37-47); MEAN CELL VOLUME 94.4 fL (80-100); MEAN CORPUSCULAR HEMOGLOBIN 31.3 pg (25-34); MEAN CORPUSCULAR HGB CONC 33.1 g/dl (32-36); MEAN PLATELET VOLUME 9.9 fL (7.4-10.4); PLATELET COUNT 128 K/uL (130-400); RED BLOOD COUNT 3.58 M/uL (4.2-5.4)
[2016-05-27 07:16] VITALS: BP 100/65; PULSE 71; TEMP 36.7; O2SAT 99
[2016-05-27 07:20] LABS: ALT/SGPT 104 U/L (12-78); AST/SGOT 46 U/L (15-37); BUN/CREATININE RATIO 5.1 (10-20); CALCIUM 8.1 mg/dl (8.5-10.1); CARBON DIOXIDE 28 mmol/L (21-32); CHLORIDE 105 mmol/L (98-107); CREATININE 0.69 mg/dl (0.60-1.20); GLUCOSE 89 mg/dl (70-99); MAGNESIUM 1.7 mg/dl (1.8-2.4); POTASSIUM 3.9 mmol/L (3.5-5.1); SODIUM 140 mmol/L (136-145)
[2016-05-27 07:22] LABS: ALKALINE PHOSPHATASE 50 U/L (45-117)
[2016-05-27 08:00] VITALS: O2SAT 99
[2016-05-27 08:05] LABS: BLOOD UREA NITROGEN 3 mg/dl (7-18)
[2016-05-27] MEDS: MULTIVITAMIN TAB PO SCH (08:06)
[2016-05-27] MEDS: PANTOprazole SOD 40 MG TAB PO SCH (08:06)
--- NOTE | 2016-05-27 11:38 | Gastroenterology Progress Note ---
Progress Note Date of Service: May 27, 2016 Subjective Pt evaluation today including: conversation w/ patient, physical exam, chart review, lab review, review of studies, review of inpatient medication list Ms. Zaidi is a 40 yr old female who was admitted on 05/26 for acute pancreatitis after thromboembolization of a liver hemangioma on 05/24. She is continuing with mid/upper back pain, having a moderately severe episode last night but is better again this morning. Drinking clear liquids doesn't seem to cause worsening. The right upper quadrant and right flank pain are improving. Nausea is much improved. Overall feels just slightly better than on admission. Lipase has resolved, now 199. Review of Systems Constitutional: No fever ENT: No unusual epistaxis Respiratory: No cough Cardiac: No chest pain Abdomen: + nausea, + pain, + see HPI, No GI bleeding, No constipation, No diarrhea, No vomiting Neuro: No memory loss Psych: No depression symptoms Heme: No abnormal bleeding/bruising Endo: + fatigue Medications Current Inpatient Medications Medications (Trade) Dose Ordered Sig/Jurgen Route Start Time Stop Time Status Last Admin Dose Admin Ioversol (Optiray 320) 100 ml UD PRN IV 05/26/16 03:00 05/30/16 02:59 Acetaminophen (Tylenol Tab) 650 mg Q4H PRN PO 05/26/16 05:15 06/25/16 05:14 Al Hydrox/Mg Hydrox/Simethicone (Maalox Max Susp) 15 ml Q4H PRN PO 05/26/16 05:15 06/25/16 05:14 Magnesium Hydroxide (Milk Of Magnesia Susp) 30 ml Q6H PRN PO 05/26/16 05:15 06/25/16 05:14 Polyethylene (Miralax Powder Packet) 17 gm DAILY PRN PO 05/26/16 05:15 06/25/16 05:14 Ondansetron HCl (Zofran Inj) 4 mg Q6H PRN IV 05/26/16 05:15 06/25/16 05:14 05/26/16 07:36 4 MG Levothyroxine Sodium (Synthroid Tab) 150 mcg DAILYBB PO 05/26/16 06:30 06/25/16 06:29 05/27/16 05:47 150 MCG Multivitamins (Multivitamin Tab) 1 tab DAILY PO 05/26/16 09:00 06/25/16 08:59 05/27/16 08:06 1 TAB Tramadol HCl (Ultram Tab) 50 mg Q6 PRN PO 05/26/16 05:15 06/25/16 05:14 05/27/16 08:05 50 MG Hydromorphone HCl (Dilaudid Inj) 1 mg Q4 PRN IV 05/26/16 05:15 06/09/16 05:14 05/26/16 07:28 1 MG Hydromorphone HCl 2 mg 2 mg Q4 PRN IV 05/26/16 05:15 06/09/16 05:14 05/27/16 04:19 2 MG Ciprofloxacin/ Dextrose/Prmx (Cipro / D5w/ Premixed D5W) 200 ml @ 100 mls/hr Q12H IV 05/26/16 06:00 06/05/16 05:59 05/27/16 05:52 100 MLS/HR Pantoprazole Sodium (Protonix Tab) 40 mg QAM PO 05/26/16 09:00 06/25/16 08:59 05/27/16 08:06 40 MG Albuterol 2 puffs 2 puffs Q4 PRN INH 05/26/16 05:45 06/25/16 05:44 Promethazine HCl 25 mg/Sodium Chloride 51 ml @ 204 mls/hr Q6H PRN IV 05/26/16 09:00 06/25/16 08:59 05/26/16 08:42 204 MLS/HR Lactated Ringer's (Lr 1000ml) 1,000 ml @ 250 mls/hr Q4H IV 05/26/16 09:15 06/25/16 09:14 05/27/16 10:17 250 MLS/HR Objective Vital Signs Date Time Temp Pulse Resp B/P Pulse Ox O2 Delivery O2 Flow Rate FiO2 05/27/16 08:00 99 Room Air 05/27/16 07:16 36.7 71 18 100/65 99 Room Air 05/27/16 00:00 97 Room Air 05/26/16 23:20 36.7 73 20 95/61 97 Room Air 05/26/16 16:01 36.9 70 16 96/61 99 Room Air 05/26/16 16:00 98 Room Air 05/26/16 12:09 36.8 64 16 92/57 100 Room Air Physical Exam General Appearance: + mild distress Neck: no adenopathy, no JVD Respiratory/Chest: lungs clear Cardiovascular: regular rate, rhythm, no JVD, no murmur Abdomen: soft, + tenderness (epigastric and RUQ) Extremities: no pedal edema, + pertinent finding (bruising at the right thigh cath sight but no hematoma) Neurologic/Psych: alert, normal mood/affect, oriented x 3 Skin: normal color, no jaundice, warm/dry Laboratory Results Last 24 Hours Test 05/27/16 06:23 White Blood Count 8.10 K/uL Red Blood Count 3.58 M/uL Hemoglobin 11.2 g/dL Hematocrit 33.8 % Mean Corpuscular Volume 94.4 fL Mean Corpuscular Hemoglobin 31.3 pg Mean Corpuscular Hemoglobin Concent 33.1 g/dl RDW Standard Deviation 45.4 fL RDW Coefficient of Variation 13.2 % Platelet Count 128 K/uL Mean Platelet Volume 9.9 fL Sodium Level 140 mmol/L Potassium Level 3.9 mmol/L Chloride Level 105 mmol/L Carbon Dioxide Level 28 mmol/L Anion Gap 7.0 mmol/L Blood Urea Nitrogen 3 mg/dl Creatinine 0.69 mg/dl Est Creatinine Clear Calc Drug Dose 114.5 ml/min Estimated GFR () 127.1 Estimated GFR (Non- 109.7 BUN/Creatinine Ratio 5.1 Random Glucose 89 mg/dl Calcium Level 8.1 mg/dl Magnesium Level 1.7 mg/dl Total Bilirubin 0.5 mg/dl Direct Bilirubin < 0.1 mg/dl Aspartate Amino Transf (AST/SGOT) 46 U/L Alanine Aminotransferase (ALT/SGPT) 104 U/L Alkaline Phosphatase 50 U/L Total Protein 6.3 gm/dl Albumin 2.7 gm/dl Lipase 199 U/L Assessment and Plan Ms. Weiss is a 40 yr old female admitted with post liver hemangioma embolization pancreatitis. Lipase has normalized. Her pain is just slightly improved. She is hemodynamically stable w/o leukocytosis, or tachycardia and creatinine is normal. Plan: 1. Continue clear liquids po, IV fluids, analgesics. 2. Will continue to follow. Attg addendum: I interviewed and examined pt, reviewed chart and labs, agree with above. Pt with some improvement of pain, some difficulty dereck clears. LFT' s improved, abd seems fairly benign. Cont current plan of care.
--- NOTE | 2016-05-27 14:50 | Progress Note ---
Internal Med Progress Note Date of Service: May 27, 2016. Provider Documentation: SUBJECTIVE: The patient was seen and examined No more Nausea and upper quadrants pain No SOB Still has the pain at the back has been tolerating regular food OBJECTIVE: Vital Signs-as noted below Exam: General-Moderate distress at rest Eyes-normal ENT-Normal Neck-Supple Lungs-clear to auscultate bilaterally Heart-Regular,no murmur appreciated Abdomen-Tender epigastrium and RUQ,no masses,bowel sound present Extremities-No edema Neuro-AAOx3 Lab data as noted below. ASSESSMENT & PLAN: ACUTE PANCREATITIS : possibly due to embolization procedure for Hepatic Hemangioma 0n 05/25/16 Was on NPO,IV fluid and Pain medication Monitor Lipase and LFT Appreciate GI input Lipase is normalized Tolerating regular diet ABDOMINAL PAIN : s/p Hepatic arteriogram with Embolization of rt hepatic lobe Hemangioma on CT abdomen /pelvis shows post procedure change -no evidence of Air or Fluid collection Pain may be due to Hepatic Capsular stretch and complicated by Pancreatitis Supportive care Pain is not yet controlled Electrolytes Abnormality due to poor PO intake no report of vomiting or diarrhea replaced follow PRP -normalized MILD LEUKOCYTOSIS: S/P post procedure no fever or chills UA + leukocyte esterase , pt denies of any urinary symptom urine culture ordered-pending empiric ABx with Ciprofloxacin -continuation from [place] FULL CODE DVT PROPHYLAXIS : LOW RISK scd and teds ambulate DISPOSITION : expected to discharge home when medically stable Medicine follow up with Dr Celi Edge Likely to go home tomorrow Vital Signs: Date Time Temp Pulse Resp B/P Pulse Ox O2 Delivery O2 Flow Rate FiO2 05/27/16 08:00 99 Room Air 05/27/16 07:16 36.7 71 18 100/65 99 Room Air 05/27/16 00:00 97 Room Air 05/26/16 23:20 36.7 73 20 95/61 97 Room Air 05/26/16 16:01 36.9 70 16 96/61 99 Room Air 05/26/16 16:00 98 Room Air Lab Results: Results Past 24 Hours Test 05/27/16 06:23 Range/Units White Blood Count 8.10 4.8-10.8 K/uL Red Blood Count 3.58 4.2-5.4 M/uL Hemoglobin 11.2 12.0-16.0 g/dL Hematocrit 33.8 37-47 % Mean Corpuscular Volume 94.4 80-100 fL Mean Corpuscular Hemoglobin 31.3 25-34 pg Mean Corpuscular Hemoglobin Concent 33.1 32-36 g/dl RDW Standard Deviation 45.4 36.4-46.3 fL RDW Coefficient of Variation 13.2 11.5-14.5 % Platelet Count 128 130-400 K/uL Mean Platelet Volume 9.9 7.4-10.4 fL Sodium Level 140 136-145 mmol/L Potassium Level 3.9 3.5-5.1 mmol/L Chloride Level 105 98-107 mmol/L Carbon Dioxide Level 28 21-32 mmol/L Anion Gap 7.0 3-11 mmol/L Blood Urea Nitrogen 3 7-18 mg/dl Creatinine 0.69 0.60-1.20 mg/dl Est Creatinine Clear Calc Drug Dose 114.5 ml/min Estimated GFR () 127.1 Estimated GFR (Non- 109.7 BUN/Creatinine Ratio 5.1 10-20 Random Glucose 89 70-99 mg/dl Calcium Level 8.1 8.5-10.1 mg/dl Magnesium Level 1.7 1.8-2.4 mg/dl Total Bilirubin 0.5 0.2-1 mg/dl Direct Bilirubin < 0.1 0-0.2 mg/dl Aspartate Amino Transf (AST/SGOT) 46 15-37 U/L Alanine Aminotransferase (ALT/SGPT) 104 12-78 U/L Alkaline Phosphatase 50 45-117 U/L Total Protein 6.3 6.4-8.2 gm/dl Albumin 2.7 3.4-5.0 gm/dl Lipase 199 73-393 U/L
[2016-05-27 15:25] VITALS: BP 113/77; PULSE 94; TEMP 37; O2SAT 93
[2016-05-27] MEDS ORDERED: BISACODYL 5 MG TABEC PO ONE (15:30)
[2016-05-27 16:00] VITALS: O2SAT 93
[2016-05-27 23:08] VITALS: BP 116/72; PULSE 83; TEMP 36.7; O2SAT 94
[2016-05-27] MEDS: ONDANSETRON INJ 2 MG/ML 2 ML VIAL IV PRN (23:32)
[2016-05-28] MEDS: HYDROmorphone INJ 2 MG/ML SYR/VIAL IV PRN ×5 (02:10→20:51)
[2016-05-28] MEDS: LACTATED RINGER'S 1000ML 1,000 ML IV SCH ×4 (03:30→17:35)
[2016-05-28] MEDS: CIPROFLOXACIN / D5W 400 MG in PREMIXED IN D5W 200 ML IV SCH ×2 (05:49→17:35)
[2016-05-28] MEDS: LEVOTHYROXINE 150 MCG TAB PO SCH (05:49)
[2016-05-28] MEDS: TRAMADOL HCL 50 MG TAB PO PRN (05:56)
[2016-05-28 06:30] LABS: HEMATOCRIT 31.6 % (37-47); MEAN CELL VOLUME 93.8 fL (80-100); MEAN CORPUSCULAR HEMOGLOBIN 31.5 pg (25-34); MEAN CORPUSCULAR HGB CONC 33.5 g/dl (32-36); MEAN PLATELET VOLUME 9.9 fL (7.4-10.4); PLATELET COUNT 112 K/uL (130-400); RED BLOOD COUNT 3.37 M/uL (4.2-5.4); WHITE BLOOD COUNT 5.56 K/uL (4.8-10.8)
[2016-05-28 06:37] LABS: ALT/SGPT 69 U/L (12-78); AST/SGOT 21 U/L (15-37); BLOOD UREA NITROGEN 2 mg/dl (7-18); BUN/CREATININE RATIO 3.1 (10-20); CALCIUM 7.9 mg/dl (8.5-10.1); CARBON DIOXIDE 30 mmol/L (21-32); CHLORIDE 105 mmol/L (98-107); CREATININE 0.65 mg/dl (0.60-1.20); GLUCOSE 82 mg/dl (70-99); MAGNESIUM 1.6 mg/dl (1.8-2.4); POTASSIUM 3.8 mmol/L (3.5-5.1); SODIUM 142 mmol/L (136-145)
[2016-05-28 06:40] LABS: ALKALINE PHOSPHATASE 44 U/L (45-117)
[2016-05-28 07:40] VITALS: BP 105/70; PULSE 74; TEMP 36.8; O2SAT 100
[2016-05-28] MEDS: PANTOprazole SOD 40 MG TAB PO SCH (07:52)
[2016-05-28] MEDS: MULTIVITAMIN TAB PO SCH (07:52)
[2016-05-28 08:00] VITALS: O2SAT 99
[2016-05-28] MEDS ORDERED: OPTIRAY 320 IV PRN (10:45)
--- NOTE | 2016-05-28 11:00 | DIAGNOSTIC IMAGING REPORT ---
CHEST 2 VIEWS ROUTINE CLINICAL HISTORY: right back pain S/P thromboembolization to hemangioma pain COMPARISON STUDY: 06/05/2016 FINDINGS: Minimal atelectasis left base. Lungs otherwise appear clear. IMPRESSION: Minimal atelectasis left base. Lungs otherwise are clear. Electronically signed by: Lane Wagner M.D. 05/28/2016 10:59 AM Dictated Date/Time: 05/28/2016 10:58 AM
[2016-05-28 12:00] VITALS: O2SAT 99
--- NOTE | 2016-05-28 12:40 | Progress Note ---
Progress Note Pt continues to have abdominal pain. She is tolerating clears at small volumes. She is having minimal flatus, has bloating, and denies BM. She is still requiring narcotics Vital Signs Past 12 Hours Date Time Temp Pulse Resp B/P Pulse Ox O2 Delivery O2 Flow Rate FiO2 05/28/16 08:00 99 Room Air 05/28/16 07:40 36.8 74 16 105/70 100 Room Air Abd soft and ND Last 24 Hours Test 05/28/16 05:31 White Blood Count 5.56 K/uL Red Blood Count 3.37 M/uL Hemoglobin 10.6 g/dL Hematocrit 31.6 % Mean Corpuscular Volume 93.8 fL Mean Corpuscular Hemoglobin 31.5 pg Mean Corpuscular Hemoglobin Concent 33.5 g/dl RDW Standard Deviation 44.1 fL RDW Coefficient of Variation 12.8 % Platelet Count 112 K/uL Mean Platelet Volume 9.9 fL Sodium Level 142 mmol/L Potassium Level 3.8 mmol/L Chloride Level 105 mmol/L Carbon Dioxide Level 30 mmol/L Anion Gap 7.0 mmol/L Blood Urea Nitrogen 2 mg/dl Creatinine 0.65 mg/dl Est Creatinine Clear Calc Drug Dose 121.5 ml/min Estimated GFR () 129.6 Estimated GFR (Non- 111.8 BUN/Creatinine Ratio 3.1 Random Glucose 82 mg/dl Calcium Level 7.9 mg/dl Magnesium Level 1.6 mg/dl Total Bilirubin 0.2 mg/dl Direct Bilirubin < 0.1 mg/dl Aspartate Amino Transf (AST/SGOT) 21 U/L Alanine Aminotransferase (ALT/SGPT) 69 U/L Alkaline Phosphatase 44 U/L Total Protein 5.4 gm/dl Albumin 2.3 gm/dl A/P: Abd pain, s/p hemangioma embo now with pancreatitis - Pain likely from embolization, panc. Cont supportive care - analgesia as needed, diet as tolerated. Will give pt additional laxatives/promot agents.
[2016-05-28] MEDS ORDERED: BISACODYL 5 MG TABEC PO ONE (13:30)
--- NOTE | 2016-05-28 13:46 | DIAGNOSTIC IMAGING REPORT ---
CT SCAN OF THE ABDOMEN AND PELVIS WITH IV CONTRAST CLINICAL HISTORY: Increasing abdominal pain status post hepatic embolization. COMPARISON STUDY: Abdominal CT dated 05/26/2016. Abdominal MRI dated 04/07/2016. TECHNIQUE: Following the IV administration of 93 cc of Optiray 320, CT scan of the abdomen and pelvis is performed from the lung bases to the proximal femora. Images are reviewed in the axial, sagittal, and coronal planes. IV contrast was administered without complication. Automated dose control exposure was utilized. CT DOSE: 438.54 mGy.cm FINDINGS: Lung bases: The heart is normal in size and without pericardial effusion. Trace pleural effusions are identified. The lung bases are otherwise clear. Liver: The contrast-enhanced liver is normal in size, contour, and attenuation. Again seen is a 5.5 cm low-attenuation lesion in the right hepatic lobe with surrounding hyperdense embolization material. This is unchanged from 05/26/2016. There is no intrahepatic biliary ductal dilatation. The hepatic veins and portal veins are patent. Gallbladder: Unremarkable. Spleen: Normal in size and attenuation. Pancreas: The pancreas is normal in appearance. Mild inflammatory change and trace fluid around the pancreatic tail seen on 05/26/2016 has resolved. Adrenal glands: Unremarkable. Kidneys: The contrast enhanced kidneys are normal in size and without hydronephrosis. The kidneys enhance symmetrically. Abdominal vasculature: The abdominal aorta is normal in course and caliber. 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 Bowel: The small bowel and colon are normal in course and caliber. The appendix is well-visualized and normal. Peritoneum: There is no intraperitoneal free air or abdominal ascites. There is a small fat-containing umbilical hernia. Lymphadenopathy: None. Pelvic viscera: The bladder is normal as visualized. A small calcified fibroid is suspected. There are bilateral ovarian follicles. There is a small volume of free fluid in the cul-de-sac. Soft tissue infiltration in the right groin is likely related to recent instrumentation. Skeletal structures: No lytic or blastic lesions are seen. IMPRESSION: 1. Unchanged appearance of a 5.5 cm low-attenuation lesion in the right hepatic lobe with evidence of chemoembolization as compared to study performed 2 days previously. No perihepatic fluid is identified. 2. Findings of mild acute pancreatitis seen on 05/26/2016 have resolved. 3. Trace pleural effusions, new from 05/26/2016. 4. There is a small amount of nonspecific free fluid in the cul-de-sac. This has modestly increased from 05/26/2016. 5. Infiltrative change in the right groin is again noted and likely related to recent instrumentation. Electronically signed by: Gurdeep Benson M.D. 05/28/2016 1:45 PM Dictated Date/Time: 05/28/2016 1:28 PM
[2016-05-28 15:02] VITALS: BP 112/77; PULSE 73; TEMP 36.6; O2SAT 100
[2016-05-28 16:00] VITALS: O2SAT 100
--- NOTE | 2016-05-28 16:42 | Progress Note ---
Internal Med Progress Note Date of Service: May 28, 2016. Provider Documentation: SUBJECTIVE: The patient was seen and examined Still has the pain at the back has been tolerating regular diet Will schedule CT of the Abdomen and Pelvis today OBJECTIVE: Vital Signs-as noted below Exam: General-Moderate distress at rest Eyes-normal ENT-Normal Neck-Supple Lungs-clear to auscultate bilaterally Heart-Regular,no murmur appreciated Abdomen-Tender epigastrium and RUQ,no masses,bowel sound present Extremities-No edema Neuro-AAOx3 Lab data as noted below. ASSESSMENT & PLAN: ACUTE PANCREATITIS :Resolved possibly due to embolization procedure for Hepatic Hemangioma 0n 05/25/16 Was on NPO,IV fluid and Pain medication Monitor Lipase and LFT Appreciate GI input Lipase is normalized Tolerating regular diet Repeat CAT -Pancreatitis is resolved ABDOMINAL PAIN : s/p Hepatic arteriogram with Embolization of rt hepatic lobe Hemangioma on CT abdomen /pelvis shows post procedure change -no evidence of Air or Fluid collection Pain may be due to Hepatic Capsular stretch and complicated by Pancreatitis Supportive care Pain is not yet controlled CAT-No increase in lesion Electrolytes Abnormality due to poor PO intake no report of vomiting or diarrhea replaced follow PRP -normalized MILD LEUKOCYTOSIS: S/P post procedure no fever or chills UA + leukocyte esterase , pt denies of any urinary symptom urine culture ordered-pending empiric ABx with Ciprofloxacin -continuation from [place] Finished 5 days course FULL CODE DVT PROPHYLAXIS : LOW RISK scd and teds ambulate DISPOSITION : expected to discharge home when medically stable Medicine follow up with Dr Celi Edge Likely to go home tomorrow Vital Signs: Date Time Temp Pulse Resp B/P Pulse Ox O2 Delivery O2 Flow Rate FiO2 05/28/16 15:02 36.6 73 18 112/77 100 Room Air 05/28/16 12:00 99 Room Air 05/28/16 08:00 99 Room Air 05/28/16 07:40 36.8 74 16 105/70 100 Room Air 05/28/16 00:00 Room Air 05/27/16 23:08 36.7 83 18 116/72 94 Room Air Lab Results: Results Past 24 Hours Test 05/28/16 05:31 Range/Units White Blood Count 5.56 4.8-10.8 K/uL Red Blood Count 3.37 4.2-5.4 M/uL Hemoglobin 10.6 12.0-16.0 g/dL Hematocrit 31.6 37-47 % Mean Corpuscular Volume 93.8 80-100 fL Mean Corpuscular Hemoglobin 31.5 25-34 pg Mean Corpuscular Hemoglobin Concent 33.5 32-36 g/dl RDW Standard Deviation 44.1 36.4-46.3 fL RDW Coefficient of Variation 12.8 11.5-14.5 % Platelet Count 112 130-400 K/uL Mean Platelet Volume 9.9 7.4-10.4 fL Sodium Level 142 136-145 mmol/L Potassium Level 3.8 3.5-5.1 mmol/L Chloride Level 105 98-107 mmol/L Carbon Dioxide Level 30 21-32 mmol/L Anion Gap 7.0 3-11 mmol/L Blood Urea Nitrogen 2 7-18 mg/dl Creatinine 0.65 0.60-1.20 mg/dl Est Creatinine Clear Calc Drug Dose 121.5 ml/min Estimated GFR () 129.6 Estimated GFR (Non- 111.8 BUN/Creatinine Ratio 3.1 10-20 Random Glucose 82 70-99 mg/dl Calcium Level 7.9 8.5-10.1 mg/dl Magnesium Level 1.6 1.8-2.4 mg/dl Total Bilirubin 0.2 0.2-1 mg/dl Direct Bilirubin < 0.1 0-0.2 mg/dl Aspartate Amino Transf (AST/SGOT) 21 15-37 U/L Alanine Aminotransferase (ALT/SGPT) 69 12-78 U/L Alkaline Phosphatase 44 45-117 U/L Total Protein 5.4 6.4-8.2 gm/dl Albumin 2.3 3.4-5.0 gm/dl
[2016-05-28] MEDS ORDERED: OXYCODONE/ACETAMINOPHEN 5-325 TAB PO PRN (16:45)
[2016-05-28] MEDS: ONDANSETRON INJ 2 MG/ML 2 ML VIAL IV PRN (17:34)
[2016-05-28] MEDS: PROMETHAZINE HCL INJ 25 MG in SODIUM CHLORIDE 0.9% 50ML 50 ML IV PRN (21:15)
[2016-05-28 23:27] VITALS: BP 91/49; PULSE 69; TEMP 36.9; O2SAT 92
[2016-05-29] VITALS (7 sets, daily range): BP systolic 98–107; BP diastolic 62–66; PULSE 64–73; TEMP 37–37.3; O2SAT 97–98
[2016-05-29] MEDS: LACTATED RINGER'S 1000ML 1,000 ML IV SCH (00:48)
[2016-05-29] MEDS: HYDROmorphone INJ 2 MG/ML SYR/VIAL IV PRN (02:46)
[2016-05-29] MEDS: CIPROFLOXACIN / D5W 400 MG in PREMIXED IN D5W 200 ML IV SCH (05:45)
[2016-05-29] MEDS: LEVOTHYROXINE 150 MCG TAB PO SCH (06:16)
[2016-05-29] MEDS: TRAMADOL HCL 50 MG TAB PO PRN ×2 (06:17→12:31)
[2016-05-29 08:04] LABS: HEMATOCRIT 34.2 % (37-47); MEAN CELL VOLUME 92.4 fL (80-100); MEAN CORPUSCULAR HEMOGLOBIN 30.5 pg (25-34); MEAN PLATELET VOLUME 9.8 fL (7.4-10.4); PLATELET COUNT 123 K/uL (130-400)
[2016-05-29 08:35] LABS: ALT/SGPT 54 U/L (12-78); BLOOD UREA NITROGEN 2 mg/dl (7-18); BUN/CREATININE RATIO 2.8 (10-20); CALCIUM 8.2 mg/dl (8.5-10.1); CARBON DIOXIDE 27 mmol/L (21-32); CHLORIDE 105 mmol/L (98-107); CREATININE 0.72 mg/dl (0.60-1.20); GLUCOSE 94 mg/dl (70-99); MAGNESIUM 1.8 mg/dl (1.8-2.4); POTASSIUM 3.7 mmol/L (3.5-5.1); SODIUM 140 mmol/L (136-145)
[2016-05-29 08:38] LABS: ALKALINE PHOSPHATASE 52 U/L (45-117); AST/SGOT 16 U/L (15-37)
[2016-05-29] MEDS: MULTIVITAMIN TAB PO SCH (08:39)
[2016-05-29] MEDS: PANTOprazole SOD 40 MG TAB PO SCH (08:39)
[2016-05-29] MEDS ORDERED: OXYC-57 PO ×2 (10:39)
[2016-05-29] MEDS ORDERED: MRLP17X PO ×2 (10:39)
--- NOTE | 2016-05-29 10:39 | Progress Note ---
Internal Med Progress Note Date of Service: May 29, 2016. Provider Documentation: SUBJECTIVE: The patient was seen and examined Much better today pain is reasonably controlled Ready to be discharged OBJECTIVE: Vital Signs-as noted below Exam: General-Moderate distress at rest Eyes-normal ENT-Normal Neck-Supple Lungs-clear to auscultate bilaterally Heart-Regular,no murmur appreciated Abdomen-Tender epigastrium and RUQ-much improved ,no masses,bowel sound present Extremities-No edema Neuro-AAOx3 Lab data as noted below. ASSESSMENT & PLAN: ACUTE PANCREATITIS :Resolved possibly due to embolization procedure for Hepatic Hemangioma 0n 05/25/16 Was on NPO,IV fluid and Pain medication Monitor Lipase and LFT Appreciate GI input Lipase is normalized Tolerating regular diet Repeat CAT -Pancreatitis is resolved Pain is reasonably controlled Will discharge home today ABDOMINAL PAIN : s/p Hepatic arteriogram with Embolization of rt hepatic lobe Hemangioma on CT abdomen /pelvis shows post procedure change -no evidence of Air or Fluid collection Pain may be due to Hepatic Capsular stretch and complicated by Pancreatitis Supportive care Pain is not yet controlled CAT-No increase in lesion -Pain is controlled Electrolytes Abnormality due to poor PO intake no report of vomiting or diarrhea replaced follow PRP -normalized MILD LEUKOCYTOSIS: S/P post procedure no fever or chills UA + leukocyte esterase , pt denies of any urinary symptom urine culture ordered-pending empiric ABx with Ciprofloxacin -continuation from [place] Finished 5 days course Discontinue antibiotic FULL CODE DVT PROPHYLAXIS : LOW RISK scd and teds ambulate DISPOSITION : expected to discharge home when medically stable Medicine follow up with Dr Celi Edge Likely to go home today Vital Signs: Date Time Temp Pulse Resp B/P Pulse Ox O2 Delivery O2 Flow Rate FiO2 05/29/16 09:00 97 Room Air 05/29/16 08:06 37.3 64 20 98/62 97 Room Air 05/29/16 07:24 37.0 68 18 99/65 98 Room Air 05/29/16 02:41 73 107/66 05/29/16 00:10 Room Air 05/29/16 00:07 65 101/65 05/28/16 23:27 36.9 69 16 91/49 92 Room Air 05/28/16 20:30 Room Air 05/28/16 16:00 100 Room Air 05/28/16 15:02 36.6 73 18 112/77 100 Room Air 05/28/16 12:00 99 Room Air Lab Results: Results Past 24 Hours Test 05/29/16 07:16 Range/Units White Blood Count 5.00 4.8-10.8 K/uL Red Blood Count 3.70 4.2-5.4 M/uL Hemoglobin 11.3 12.0-16.0 g/dL Hematocrit 34.2 37-47 % Mean Corpuscular Volume 92.4 80-100 fL Mean Corpuscular Hemoglobin 30.5 25-34 pg Mean Corpuscular Hemoglobin Concent 33.0 32-36 g/dl RDW Standard Deviation 43.1 36.4-46.3 fL RDW Coefficient of Variation 12.7 11.5-14.5 % Platelet Count 123 130-400 K/uL Mean Platelet Volume 9.8 7.4-10.4 fL Sodium Level 140 136-145 mmol/L Potassium Level 3.7 3.5-5.1 mmol/L Chloride Level 105 98-107 mmol/L Carbon Dioxide Level 27 21-32 mmol/L Anion Gap 8.0 3-11 mmol/L Blood Urea Nitrogen 2 7-18 mg/dl Creatinine 0.72 0.60-1.20 mg/dl Est Creatinine Clear Calc Drug Dose 109.7 ml/min Estimated GFR () 122.3 Estimated GFR (Non- 105.5 BUN/Creatinine Ratio 2.8 10-20 Random Glucose 94 70-99 mg/dl Calcium Level 8.2 8.5-10.1 mg/dl Magnesium Level 1.8 1.8-2.4 mg/dl Total Bilirubin 0.2 0.2-1 mg/dl Direct Bilirubin < 0.1 0-0.2 mg/dl Aspartate Amino Transf (AST/SGOT) 16 15-37 U/L Alanine Aminotransferase (ALT/SGPT) 54 12-78 U/L Alkaline Phosphatase 52 45-117 U/L Total Protein 5.7 6.4-8.2 gm/dl Albumin 2.3 3.4-5.0 gm/dl
--- NOTE | 2016-05-29 10:42 | Discharge Instructions ---
Discharge Instructions Admission Reason for Admission: Hypokalemia, Pancreatitis Discharge Discharge Diagnosis / Problem: Acute Pancreatitis,S/P embolization of Hepatic Hemangioma 05/25/16 at [facility] Discharge Goals Goal(s): Prevent Disease Progression Activity Recommendations Activity Limitations: resume your previous activity . Instructions / Follow-Up Instructions / Follow-Up Dr Agustin on 06/04/16 at 10:50 AM Current Hospital Diet Patient's current hospital diet: Gluten Free Diet Discharge Diet Recommended Diet: Regular Diet Pending Studies Studies pending at discharge: no Medical Emergencies . Who to Call and When: Medical Emergencies: If at any time you feel your situation is an emergency, please call 911 immediately. . Non-Emergent Contact Non-Emergency issues call your: Primary Care Provider . Past History Medical & Surgical History: (1) Acute pancreatitis (2) ADD (attention deficit disorder) (3) Endometriosis (4) Hypothyroidism (5) PCOS (polycystic ovarian syndrome) (6) Liver hemangioma . "Provider Documentation" section prepared by Iris Saul. VTE Core Measure Inpt VTE Proph given/why not?: SCD's
--- NOTE | 2016-05-29 11:43 | GASTROENTEROLOGY PROGRESS NOTE ---
DATE: 05/29/2016 DATE: 05/29/2016. Progress note in cross coverage for Stephane WALKER. SUBJECTIVE: I had the pleasure of seeing Brittany Zaidi at her bedside today. She was feeling much improved with less abdominal pain in the midepigastric region as well as in the right upper quadrant. She states that she has not been using narcotic analgesics in the IV form overnight, though has continued to take her Percocet therapy which has improved her symptoms. She states that she has been tolerating some p.o. intake and wishes to go home today. She denies any further complaints including fevers, chills, nausea, vomiting, hematemesis, melena, hematochezia or hematemesis. She has no further complaints. REVIEW OF SYSTEMS: Negative time 10 system review other than pertinent positives listed in the HPI. PHYSICAL EXAMINATION: VITAL SIGNS: Temp 37.3, pulse 64, respirations 20, blood pressure 98/62, pulse ox 97% on room air. GENERAL EXAMINATION: She is awake, cooperative, no acute distress. CHEST: Clear to auscultation bilaterally. CARDIOVASCULAR SYSTEM: Regular rate and rhythm. ABDOMEN: Soft, mildly tender in the midepigastric region. Nondistended. There are positive bowel sounds. EXTREMITIES: No clubbing, cyanosis, or edema. LABORATORY STUDIES: From today include a sodium 140, potassium 3.7, chloride 105, bicarbonate 27, BUN 2, creatinine 0.72 and a blood glucose level of 94, total bilirubin of 0.2, AST 16, ALT 54, alkaline phosphatase 52, total protein 5.7 and albumin 2.3. White blood cell count 5.0, hemoglobin 11.3, hematocrit 34.2 and a platelet count of 123. IMPRESSION: This is a 40-year-old female who underwent embolization of a hemangioma of the liver who presented with pancreatitis. PLAN: At the present time, the patient is feeling much improved. The plan by Dr. Saul of the hospitalist team is to discharge her to home and have her follow up with Stephane WALKER as an outpatient. Agree with this at present. If she has any further problems I instructed her to contact the hospital as I am on called today through the weekend if she has any questions or concerns. I told her that if her pain significantly worsened she should return to the Department of Emergency Medicine, she was in agreement with this plan. Once again, thanks for allowing me to participate in the care of this patient. If you have any further questions, please do not hesitate in contacting me.
--- NOTE | 2016-05-30 15:08 | Discharge Summary ---
Discharge Summary Admission Date: May 26, 2016 at 04:39 Discharge Date: May 29, 2016 Discharge Disposition: Home Principal Diagnosis: Acute Pancreatitis,S/P embolization of Hepatic Hemangioma 05/25/16 at [facility]. 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 Secondary Diagnoses/Problems: Please see H&P Consultations: GI Medication Reconciliation New Medications: Oxycodone/Acetaminophen 5MG/325MG (Percocet 5MG/325MG) Tab 1 TAB PO Q4H PRN for Pain for 7 Days, #20 TAB PAIN Polyethylene (Miralax) 17 Gm Pow 17 GM PO DAILY PRN for Constipation for 30 Days, #30 DOSE Continued Medications: Control Pills ( Control Pills) Tab 1 TAB PO DAILY, TAB Levothyroxine Sodium (Synthroid) 150 Mcg Tab 150 MCG PO DAILY, TAB Multivitamin (Multivitamin) Tab 1 TAB PO DAILY, TAB Ondansetron Hcl (Zofran) 4 Mg Tab 4 MG PO Q6 PRN for Nausea, TAB Tramadol (Ultram) 50 Mg Tab 50 MG PO Q6 PRN for Pain, TAB Admission Information HPI (per Admitting provider): Ms Zaidi is a 40 yo F with hx of ADD , endometriosis , hypothyroidism , PCOS , rt hepatic lobe hemangiomas -underwent Hepatic angiogram with embolization of hemangioma in May 2015 in [facility] pt continued to have RUQ pain and discomfort evaluated at [facility] by IR , underwent repeat hepatic angiogram with embolization yesterday 05/24/16 stayed overnight in [facility], post procedure had mild aching pain in RUQ , no nausea, no fever or chills was discharged home around 11 am at home pt continued to have aching pain in RUQ with radiation to back and between her shoulder around 10 pm -felt very nauseous , no vomiting felt 10/10 pain sharp at RUQ , associated with sweating, Shortness of breath and dizzy spell came to ED CT chest with contrast shows -no evidence of PE or aortic dissection CT abdomen /pelvis contrast study : dense material in the rt hepatic lobe compatible with history of embolization with central low attenuation -co relates to recent post procedure status pt had mild leukocytosis WBC 12 K Lipase elevated > 2000 pt will be admitted to medical floor under [facility]ist service Family History Family History Problem Relation Age of Onset Comments Cancer Maternal Grandmother breast, postmenopausal, . Diabetes Father Diabetes Paternal Grandmother Hypertension Father Social History Smoking Status: Never Smoker Smokeless Tobacco Use: No Drug Use: none Marital Status: Multi-Drug Resistant Organisms History of MDRO: No Allergies Coded Allergies: Penicillins (Verified Allergy, Unknown, 05/26/16) Vancomycin (Verified Allergy, Unknown, ANAPHYLAXIS, 05/26/16) Adhesives (Verified Adverse Reaction, Unknown, "SENSITIVE TO TAPE", 05/26/16 ) Home Medications Scheduled Control Pills ( Control Pills), 1 TAB PO DAILY Levothyroxine Sodium (Synthroid), 150 MCG PO DAILY Multivitamin (Multivitamin), 1 TAB PO DAILY Scheduled PRN Ondansetron Hcl (Zofran), 4 MG PO Q6 PRN for Nausea Tramadol (Ultram), 50 MG PO Q6 PRN for Pain Review of Systems Constitutional: No chills, No fatigue, No fever, No problem reported, No sweats , No weakness, No weight loss Respiratory: No cough, No dyspnea at rest, No dyspnea on exertion, No hemoptysis, No problem reported, No shortness of breath, No sputum, No wheezing Cardiovascular: No PND, No chest pain, No claudication, No edema, No orthopnea , No palpitations, No problem reported Abdomen: + nausea, + pain Musculoskeletal: No calf pain, No joint pain, No muscle pain, No problem reported, No swelling Neurologic: No balance problems, No memory loss, No numbness/tingling, No paralysis, No problem reported, No vertigo, No weakness Physical Ex - H&P Physical Exam Vital Signs Date Time Temp Pulse Resp B/P Pulse Ox O2 Delivery O2 Flow Rate FiO2 05/26/16 04:28 87 16 104/55 100 Room Air 05/26/16 03:31 68 16 112/62 100 Room Air 05/26/16 02:50 Room Air 05/26/16 02:50 Room Air 05/26/16 02:49 73 05/26/16 02:34 100 Room Air 05/26/16 02:34 36.5 78 26 110/70 99 Room Air General Appearance: no apparent distress Head: normocephalic, atraumatic Eyes: PERRL, EOMI, sclerae normal Neck: no JVD, no carotid bruits, trachea midline Respiratory/Chest: chest non-tender, lungs clear, normal breath sounds, no respiratory distress Cardiovascular: regular rate, rhythm, no edema, no JVD Abdomen/GI: soft, + pertinent finding (ruq mild tenderness ) Back: no CVA tenderness Extremities/Musculoskelatal: normal capillary refill, no pedal edema, + pertinent finding (rt groin IR catheter insertion site intact , no bleeding or hematoma ) Diagnostics - H&P Diagnostics Laboratory Results Results Past 24 Hours Test 05/26/16 02:49 05/26/16 02:55 05/26/16 03:07 Range/Units White Blood Count 12.50 4.8-10.8 K/uL Red Blood Count 4.13 4.2-5.4 M/uL Hemoglobin 13.1 12.0-16.0 g/dL Hematocrit 37.5 37-47 % Mean Corpuscular Volume 90.8 80-100 fL Mean Corpuscular Hemoglobin 31.7 25-34 pg Mean Corpuscular Hemoglobin Concent 34.9 32-36 g/dl Platelet Count 134 130-400 K/uL Mean Platelet Volume 9.7 7.4-10.4 fL Neutrophils (%) (Auto) 69.4 % Lymphocytes (%) (Auto) 24.6 % Monocytes (%) (Auto) 5.5 % Eosinophils (%) (Auto) 0.2 % Basophils (%) (Auto) 0.1 % Neutrophils # (Auto) 8.68 1.4-6.5 K/uL Lymphocytes # (Auto) 3.07 1.2-3.4 K/uL Monocytes # (Auto) 0.69 0.11-0.59 K/uL Eosinophils # (Auto) 0.02 0-0.5 K/uL Basophils # (Auto) 0.01 0-0.2 K/uL RDW Standard Deviation 43.2 36.4-46.3 fL RDW Coefficient of Variation 13.1 11.5-14.5 % Immature Granulocyte % (Auto) 0.2 % Immature Granulocyte # (Auto) 0.03 0.00-0.02 K/uL Prothrombin Time 10.3 9.0-12.0 SECONDS Prothromb Time International Ratio 1.0 0.9-1.1 Activated Partial Thromboplast Time 21.1 21.0-31.0 SECONDS Partial Thromboplastin Ratio 0.8 Sodium Level 141 136-145 mmol/L Potassium Level 3.3 3.5-5.1 mmol/L Chloride Level 106 98-107 mmol/L Carbon Dioxide Level 24 21-32 mmol/L Anion Gap 11.0 20.0 16-25 mmol/L Blood Urea Nitrogen 11 7-18 mg/dl Creatinine 0.88 0.60-1.20 mg/dl Est Creatinine Clear Calc Drug Dose 89.7 ml/min Estimated GFR () 95.9 Estimated GFR (Non- 82.8 BUN/Creatinine Ratio 12.3 10-20 Random Glucose 102 70-99 mg/dl Calcium Level 8.2 8.5-10.1 mg/dl Total Bilirubin 0.3 0.2-1 mg/dl Direct Bilirubin 0.1 0-0.2 mg/dl Aspartate Amino Transf (AST/SGOT) 113 15-37 U/L Alanine Aminotransferase (ALT/SGPT) 163 12-78 U/L Alkaline Phosphatase 57 45-117 U/L Total Creatine Kinase 39 26-192 U/L Creatine Kinase MB < 0.5 0.5-3.6 ng/ml Creatine Kinase MB Ratio 0-3.0 Troponin I < 0.015 0-0.045 ng/ml Total Protein 6.6 6.4-8.2 gm/dl Albumin 3.0 3.4-5.0 gm/dl Lipase 2258 73-393 U/L Human Chorionic Gonadotropin, Qual NEG NEG Bedside Hemoglobin 12.9 12.0-16.0 g/dl Bedside Hematocrit 38 37-47 % Bedside Sodium 139 135-144 mEq/L Bedside Potassium 3.2 3.3-5.0 mEq/L Bedside Chloride 103 101-112 mEq/L Bedside Total CO2 20 24-31 mEq/l Bedside Blood Urea Nitrogen 10 7-18 mg/dl Bedside Creatinine 0.7 0.6-1.3 mg/dl Bedside Glucose (other) 108 70-99 mg/dl Bedside Ionized Calcium (Steve) 1.05 1.12-1.32 mmol/l Urine Color YELLOW Urine Appearance CLEAR CLEAR Urine pH 6.5 4.5-7.5 Urine Specific [place] 1.017 1.000-1.030 Urine Protein NEG NEG Urine Glucose (UA) NEG NEG Urine Ketones NEG NEG Urine Occult Blood NEG NEG Urine Nitrite NEG NEG Urine Bilirubin NEG NEG Urine Urobilinogen NEG NEG Urine Leukocyte Esterase MODERATE NEG Urine WBC (Auto) 5-10 0-5 /hpf Urine RBC (Auto) 0-4 0-4 /hpf Urine Hyaline Casts (Auto) 0 0-5 /lpf Urine Epithelial Cells (Auto) >30 0-5 /lpf Urine Bacteria (Auto) 1+ NEG Urine Renal Epithelial Cells 0-5 /lpf Urine Mucus PRESENT NONE PRSENT Microbiology Results 05/26/16 Urine Culture, Received Pending Diagnostic Radiology CT CHEST WITH CONTRAST : CT ABDOMEN /PELVIS WITH CONTRAST : STATRAD no evidence of PE or aortic dissection No acute intrathoracic process dense material in the rt hepatic lobe compatible with history of embolization with central low attenuation . CXR normal Impression - H&P Impression Assessment and Plan ABDOMINAL PAIN : s/p Hepatic arteriogram with Embolization of rt hepatic lobe Hemangioma yesterday CT abdomen /pelvis shows post procedure change pt was discharged with Ciprofloxacin for 5 days which is continued supportive care pain control ACUTE PANCREATITIS : possible due to embolization procedure bowel rest -clear liq diet for now IV fluid pain control repeat Lipase level in AM GI eval requested , pt is known to Dr Al RENO K : due to poor PO intake no report of vomiting or diarrhea replaced follow PRP MILD LEUKOCYTOSIS: post procedure no fever or chills UA + leukocyte esterase , pt denies of any urinary symptom urine culture ordered empiric ABx with Ciprofloxacin FULL CODE DVT PROPHYLAXIS : LOW RISK scd and teds ambulate DISPOSITION : expected to discharge home when medically stable Medicine follow up with Dr Celi Edge VTE Prophylaxis VTE Risk Assessment Done? Y/N: Yes Risk Level: Low Physical Exam (per Admitting): General Appearance: no apparent distress Head: normocephalic, atraumatic Eyes: PERRL, EOMI, sclerae normal Neck: no JVD, no carotid bruits, trachea midline Respiratory/Chest: chest non-tender, lungs clear, normal breath sounds, no respiratory distress Cardiovascular: regular rate, rhythm, no edema, no JVD Abdomen/GI: soft, + pertinent finding (ruq mild tenderness ) Back: no CVA tenderness Extremities/Musculoskelatal: normal capillary refill, no pedal edema, + pertinent finding (rt groin IR catheter insertion site intact , no bleeding or hematoma ) Hospital Course ACUTE PANCREATITIS :Resolved possibly due to embolization procedure for Hepatic Hemangioma 0n 05/25/16 Was on NPO,IV fluid and Pain medication Monitor Lipase and LFT Appreciate GI input Lipase is normalized Tolerating regular diet Repeat CAT -Pancreatitis is resolved Pain is reasonably controlled Will discharge home today ABDOMINAL PAIN : s/p Hepatic arteriogram with Embolization of rt hepatic lobe Hemangioma on CT abdomen /pelvis shows post procedure change -no evidence of Air or Fluid collection Pain may be due to Hepatic Capsular stretch and complicated by Pancreatitis Supportive care Pain is not yet controlled CAT-No increase in lesion -Pain is controlled Electrolytes Abnormality due to poor PO intake no report of vomiting or diarrhea replaced follow PRP -normalized MILD LEUKOCYTOSIS: S/P post procedure no fever or chills UA + leukocyte esterase , pt denies of any urinary symptom urine culture ordered-pending empiric ABx with Ciprofloxacin -continuation from [facility] Finished 5 days course Discontinue antibiotic FULL CODE DVT PROPHYLAXIS : LOW RISK scd and teds ambulate DISPOSITION : expected to discharge home when medically stable Medicine follow up with Dr Celi Edge Likely to go home today Total time spent on discharge = 35 minutes This includes examination of the patient, discharge planning, medication reconciliation, and communication with other providers. Discharge Instructions Admission Reason for Admission: Hypokalemia, Pancreatitis Discharge Discharge Diagnosis / Problem: Acute Pancreatitis,S/P embolization of Hepatic Hemangioma 05/25/16 at [facility] Discharge Goals Goal(s): Prevent Disease Progression Activity Recommendations Activity Limitations: resume your previous activity . Instructions / Follow-Up Instructions / Follow-Up Dr Agustin on 06/04/16 at 10:50 AM Current Hospital Diet Patient's current hospital diet: Gluten Free Diet Discharge Diet Recommended Diet: Regular Diet Pending Studies Studies pending at discharge: no Medical Emergencies . Who to Call and When: Medical Emergencies: If at any time you feel your situation is an emergency, please call 911 immediately. . Non-Emergent Contact Non-Emergency issues call your: Primary Care Provider . Past History Medical & Surgical History: (1) Acute pancreatitis (2) ADD (attention deficit disorder) (3) Endometriosis (4) Hypothyroidism (5) PCOS (polycystic ovarian syndrome) (6) Liver hemangioma . "Provider Documentation" section prepared by Iris Saul. VTE Core Measure Inpt VTE Proph given/why not?: SCD's <Electronically signed by Iris Saul M.D.> Additional Copies To Celi Agustin D.O.
--- NOTE | 2016-05-31 06:44 | EDITING REQUIRED CODING QUERY ---
CODING QUERY To promote full compliance with coding requirements relating to patient care, provider participation is requested in all cases of intrusion analyst uncertainty. Please assist us with the question(s) below: Coding Question(s): The acute pancreatitis is documented as possibly due to embolization procedure for hepatic hemangioma. The GI Consults document post chemoembolization syndrome. Please clarify below, in your clinical opinion. (+ ) 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 ( ) Acute Pancreatitis is possible other complication of the embolization procedure Physician's Response(s): Thank you Opal Wills Principal Diagnosis: "_that condition established after study, to be chiefly responsible for occasioning the admission of the patient to the hospital for care." Co-Existing Principal Diagnosis: "_when two or more diagnoses equally meet the criteria for principal diagnosis as determined by the circumstances of admission, diagnostic work up, and/or therapy provided, and the Alphabetic Index, Tabular List, or another coding guideline does not provide sequencing direction, any one of the diagnoses may be sequenced first." "When the physician has documented what appears to be a current diagnosis in the body of the record, but has not included the diagnosis in the final diagnostic statement, the physician should be asked whether the diagnosis should be added." (Source Coding [facility] 2 QTR90. p3-4)
== END 2016-05-29 12:35 | disposition home or self-care (01) | DRG 440 ==
LOC: ENRESERVDT → ENRESERVTM → C.EDB 02:33 → C.MED 04:39 → EDBEDREQSVC 04:47
PROVIDERS: ADMIT Hospitalist; ATTEND Internal Medicine
DX: K85.80 Other acute pancreatitis without necrosis or infection (principal); E87.6 Hypokalemia; D72.829 Elevated white blood cell count, unspecified; G89.18 Other acute postprocedural pain; E03.9 Hypothyroidism, unspecified; Z79.899 Other long term (current) drug therapy; Z79.3 Long term (current) use of hormonal contraceptives; Z98.890 Other specified postprocedural states; Z87.898 Personal history of other specified conditions

== ENCOUNTER → 2016-06-01 | Outpatient (CLI) | payer OTHER ==
[~2016-06-01] MED LIST: BCPILLS PO; DEXM1CAP PO; DICY10CA12 PO; DOCU-94 PO; DROS1TAB2 PO; FEXO1TAB49 PO; FLUT0.15; LEVO150T PO; MRLP17X PO; MULT-506 PO; ONDA4TAB46 PO; ONDA4TAB65 PO; OXYC-57 PO; PROM25TA9 PO; SUMA50TA15 PO; TRAM-10 PO; VALA1TAB2 PO; ZOLP10TA PO
== END | disposition home or self-care (01) ==
LOC: C.LAB 12:48
PROVIDERS: ATTEND Family Medicine
DX: E03.9 Hypothyroidism, unspecified (principal)

== ENCOUNTER 2016-06-02 13:48 | Emergency (ER) | payer OTHER ==
[~2016-06-02] VITALS: Ht 175.3 cm; Wt 75.8 kg
[~2016-06-02 13:48] MED LIST changes: -DEXM1CAP PO; -DICY10CA12 PO; -DOCU-94 PO; -DROS1TAB2 PO; -FEXO1TAB49 PO; -FLUT0.15; -ONDA4TAB65 PO; -PROM25TA9 PO; -SUMA50TA15 PO; -VALA1TAB2 PO; -ZOLP10TA PO
[2016-06-02 13:50] VITALS: TEMP 36.8; Ht 175.3 cm; Wt 75.8 kg
[2016-06-02] MEDS ORDERED: DOCU-94 PO (14:34)
[2016-06-02] MEDS ORDERED: FEXO1TAB49 PO (14:34)
[2016-06-02] MEDS ORDERED: ONDANSETRON INJ 2 MG/ML 2 ML VIAL IV STA (14:38)
[2016-06-02] MEDS ORDERED: SODIUM CHLORIDE 0.9% 1000ML 1,000 ML IV STA ×2 (14:38)
--- NOTE | 2016-06-02 14:46 | EMERGENCY ROOM VISIT NOTE ---
History Report prepared by Jos eAlejandro: Kanwal Marley Under the Supervision of: Paula MccraryO. First contact with patient: 14:28 Chief Complaint: BACK PAIN Stated Complaint: LOWER BACK PAIN History of Present Illness The patient is a 40 year old female who presents to the Emergency Room with complaints of persistent back pain that began Tuesday. She currently rates her discomfort as a 5/10 in severity. The patient states that two weeks ago she had a liver mass embolized. She states that she had this done once in the past and states that since the mass regrew and became larger she had a larger portion removed. The patient states that last Tuesday she noticed increased pain to her right abdomen that was radiating. She states that she noticed shortness of breath so she came to the emergency department for further work up and evaluation. The patient states that she was found to have pancreatitis and hypoglycemia and stayed in the hospital for further work up. She states that she was sent on Tuesday. The patient states that now she has been still experiencing the abdominal pain, but additionally notes back pain, right rib pain, and right flank pain. She states that she has tried heat and hot showers for her discomfort. The patient states that she saw Dr. Rosas today and he was concerned that due to her list of complications, he wanted her to be evaluated in the emergency department for a CT scan and lab work. The patient denies any chest pain, shortness of breath, nausea, vomiting, or hematuria. She notes a history of endometriosis and hypothyroidism. The patient states that she has had a previous kidney stone. Source of History: patient Onset: Tuesday Position: back Symptom Intensity: 5/10 Timing: other (persistent) Associated Symptoms: + abdominal pain, No SOB, No chest pain, No nausea, No vomiting Note: Associated Symptoms: right rib pain, right flank pain Review of Systems See HPI for pertinent positives & negatives. A total of 10 systems reviewed and were otherwise negative. Past Medical & Surgical Medical Problems: (1) Acute pancreatitis (2) ADD (attention deficit disorder) (3) Endometriosis (4) Hypothyroidism (5) Liver hemangioma (6) PCOS (polycystic ovarian syndrome) Family History Cancer Diabetes mellitus Hypertension Social History Smoking Status: Never Smoker Drug Use: none Marital Status: Housing Status: lives with family Current/Historical Medications Scheduled Control Pills ( Control Pills), 1 TAB PO DAILY Docusate Sodium (Colace), 1 CAP PO BID Fexofenadine Hcl (Gianna Allergy), 1 TAB PO DAILY Levothyroxine Sodium (Synthroid), 150 MCG PO DAILY Multivitamin (Multivitamin), 1 TAB PO DAILY Scheduled PRN Ondansetron Hcl (Zofran), 4 MG PO Q6 PRN for Nausea Oxycodone/Acetaminophen 5MG/325MG (Percocet 5MG/325MG), 1 TAB PO Q4H PRN for Pain Polyethylene (Miralax), 17 GM PO DAILY PRN for Constipation Tramadol (Ultram), 50 MG PO Q6 PRN for Pain Allergies Coded Allergies: Penicillins (Verified Allergy, Unknown, 06/02/16) Vancomycin (Verified Allergy, Unknown, ANAPHYLAXIS, 06/02/16) Adhesives (Verified Adverse Reaction, Unknown, "SENSITIVE TO TAPE", ) Physical Exam Vital Signs Date Time Temp Pulse Resp B/P Pulse Ox O2 Delivery O2 Flow Rate FiO2 06/02/16 19:08 74 16 118/74 98 06/02/16 17:09 78 18 115/75 100 06/02/16 16:15 75 22 100 06/02/16 15:45 77 19 100 06/02/16 15:15 77 24 100 06/02/16 15:06 76 06/02/16 13:50 36.8 81 18 116/81 100 Room Air Physical Exam GENERAL: Patient is awake, alert, somewhat anxious and uncomfortable appearing. EYES: The conjunctivae are clear. The pupils are round and reactive. EARS, NOSE, MOUTH AND THROAT: The nose is without any evidence of any deformity. Mucous membranes are moist tongue is midline NECK: The neck is nontender and supple. RESPIRATORY: Normal respiratory effort is noted there is no evidence of wheezing rhonchi or rales CARDIOVASCULAR: Regular rate and rhythm noted there no murmurs rubs or gallops normal S1 normal S2 GASTROINTESTINAL: The abdomen is soft. Bowel sounds are present in all quadrants. Abdomen is nontender BACK: No midline tenderness to palpation. Significant right CVA tenderness to percussion. Range of motion was limited secondary to pain. MUSCULOSKELETAL/EXTREMITIES: There is no evidence of gross deformity full range of motion is noted in the hips and shoulders SKIN: There is no obvious evidence of any rash. There are no petechiae, pallor or cyanosis noted. NEUROLOGIC: Patient is awake alert and oriented x3 strength is symmetric patellar reflexes are 2+ bilaterally Medical Decision & Procedures ER Provider Diagnostic Interpretation: Radiology results as stated below per my review and radiologist interpretation: CHEST ONE VIEW PORTABLE HISTORY: Generalized abdominal pain. COMPARISON: Chest 05/28/2016. FINDINGS: The lungs are clear. Cardiac silhouette is normal in size. No pleural effusions. No pneumothorax. IMPRESSION: No acute process. Electronically signed by: Reno Chapman M.D. 06/02/2016 2:56 PM Dictated Date/Time: 06/02/2016 2:54 PM ABDOMEN AND PELVIS CT WITH IV CONTRAST CT DOSE: 387.21 mGy.cm HISTORY: Pain right flank pain, recent liver embolization, sent by PCP for CT TECHNIQUE: Multiaxial CT images of the abdomen and pelvis were performed following the use of intravenous contrast. COMPARISON STUDY: 05/28/2016 FINDINGS: No change based on CT examination compared to the prior exam. Post therapeutic embolization with low-density lesion of the posterior right hepatic lobe all of which are unchanged. No significant perihepatic fluid collections. Lung bases are clear. Kidneys enhance uniformly. Bowel pattern is nonobstructive. No significant fluid at the current time as compared to the prior study within the pelvic cul-de-sac. Improved postoperative changes right inguinal region. IMPRESSION: No major change compared to the prior study. Hepatic lesion unchanged in appearance. No new or interval finding. Electronically signed by: Lane Wagner M.D. 06/02/2016 5:00 PM Dictated Date/Time: 06/02/2016 4:58 PM Laboratory Results 06/02/16 14:55 Red Blood Count 4.34, Mean Corpuscular Volume 91.5, Mean Corpuscular Hemoglobin 31.6, Mean Corpuscular Hemoglobin Concent 34.5, Mean Platelet Volume 9.4, Neutrophils (%) (Auto) 41.3, Lymphocytes (%) (Auto) 46.0, Monocytes (%) (Auto) 10.5, Eosinophils (%) (Auto) 1.1, Basophils (%) (Auto) 0.9, Neutrophils # (Auto ) 1.90, Lymphocytes # (Auto) 2.11, Monocytes # (Auto) 0.48, Eosinophils # (Auto ) 0.05, Basophils # (Auto) 0.04 06/02/16 14:55 Test 2/15/17 14:55 06/02/16 15:00 06/02/16 15:45 White Blood Count 4.59 K/uL (4.8-10.8) Red Blood Count 4.34 M/uL (4.2-5.4) Hemoglobin 13.7 g/dL (12.0-16.0) Hematocrit 39.7 % (37-47) Mean Corpuscular Volume 91.5 fL (80-100) Mean Corpuscular Hemoglobin 31.6 pg (25-34) Mean Corpuscular Hemoglobin Concent 34.5 g/dl (32-36) Platelet Count 203 K/uL (130-400) Mean Platelet Volume 9.4 fL (7.4-10.4) Neutrophils (%) (Auto) 41.3 % Lymphocytes (%) (Auto) 46.0 % Monocytes (%) (Auto) 10.5 % Eosinophils (%) (Auto) 1.1 % Basophils (%) (Auto) 0.9 % Neutrophils # (Auto) 1.90 K/uL (1.4-6.5) Lymphocytes # (Auto) 2.11 K/uL (1.2-3.4) Monocytes # (Auto) 0.48 K/uL (0.11-0.59) Eosinophils # (Auto) 0.05 K/uL (0-0.5) Basophils # (Auto) 0.04 K/uL (0-0.2) RDW Standard Deviation 43.1 fL (36.4-46.3) RDW Coefficient of Variation 12.8 % (11.5-14.5) Immature Granulocyte % (Auto) 0.2 % Immature Granulocyte # (Auto) 0.01 K/uL (0.00-0.02) Prothrombin Time 10.2 SECONDS (9.0-12.0) Prothromb Time International Ratio 1.0 (0.9-1.1) Activated Partial Thromboplast Time 24.0 SECONDS (21.0-31.0) Partial Thromboplastin Ratio 0.9 Est Creatinine Clear Calc Drug Dose 92.9 ml/min Estimated GFR () 100.0 Estimated GFR (Non- 86.3 BUN/Creatinine Ratio 12.6 (10-20) Calcium Level 8.7 mg/dl (8.5-10.1) Total Bilirubin 0.2 mg/dl (0.2-1) Direct Bilirubin < 0.1 mg/dl (0-0.2) Aspartate Amino Transf (AST/SGOT) 18 U/L (15-37) Alanine Aminotransferase (ALT/SGPT) 39 U/L (12-78) Alkaline Phosphatase 83 U/L (45-117) Total Protein 7.9 gm/dl (6.4-8.2) Albumin 3.3 gm/dl (3.4-5.0) Lipase 181 U/L (73-393) Human Chorionic Gonadotropin, Qual NEG (NEG) Bedside Hemoglobin 14.3 g/dl (12.0-16.0) Bedside Hematocrit 42 % (37-47) Bedside Sodium 140 mEq/L (135-144) Bedside Potassium 4.0 mEq/L (3.3-5.0) Bedside Chloride 100 mEq/L (101-112) Bedside Total CO2 27 mEq/l (24-31) Anion Gap 18.0 mmol/L (16-25) Bedside Blood Urea Nitrogen 10 mg/dl (7-18) Bedside Creatinine 0.7 mg/dl (0.6-1.3) Bedside Glucose (other) 90 mg/dl (70-99) Bedside Ionized Calcium (Steve) 1.20 mmol/l (1.12-1.32) Urine Color DK YELLOW Urine Appearance CLOUDY (CLEAR) Urine pH 5.0 (4.5-7.5) Urine Specific [place] 1.028 (1.000-1.030) Urine Protein NEG (NEG) Urine Glucose (UA) NEG (NEG) Urine Ketones TRACE (NEG) Urine Occult Blood NEG (NEG) Urine Nitrite NEG (NEG) Urine Bilirubin NEG (NEG) Urine Urobilinogen NEG (NEG) Urine Leukocyte Esterase SMALL (NEG) Urine WBC (Auto) 10-30 /hpf (0-5) Urine RBC (Auto) 0-4 /hpf (0-4) Urine Hyaline Casts (Auto) 5-10 /lpf (0-5) Urine Epithelial Cells (Auto) >30 /lpf (0-5) Urine Bacteria (Auto) 1+ (NEG) Laboratory results per my review. Medications Administered Medications (Trade) Dose Ordered Sig/Jurgen Route Start Time Stop Time Status Last Admin Dose Admin Sodium Chloride 1,000 ml @ 999 mls/hr Q1H1M STAT IV 06/02/16 14:38 06/02/16 15:38 DC 06/02/16 14:38 999 MLS/HR Sodium Chloride (Nss 1000ml) 1,000 ml @ 125 mls/hr Q8H STAT IV 06/02/16 14:38 06/02/16 20:07 DC 06/02/16 15:54 125 MLS/HR Ondansetron HCl (Zofran Inj) 4 mg NOW STAT IV 06/02/16 14:38 06/02/16 14:40 DC 06/02/16 15:01 4 MG Morphine Sulfate (MoRPHine SULFATE INJ) 4 mg Q15M PRN IV 06/02/16 14:45 06/02/16 20:07 DC 06/02/16 15:54 4 MG Hydromorphone HCl (Dilaudid Inj) 1 mg STK-MED ONCE .ROUTE 06/02/16 17:01 06/02/16 17:03 DC 06/02/16 17:08 1 MG ED Course 1435: The patient was evaluated in room B3B. A complete history and physical examination were performed. 1438: Ordered Zofran Inj 4 mg IV, Sodium Chloride 1000 ml @ 125 mls/hr IV, Sodium Chloride 1000 ml @ 999 mls/hr IV. 1445: Ordered Morphine Sulfate 4 mg IV. 1701: Ordered Dilaudid Inj 1 mg IV. 1709: I reevaluated the patient and she is resting comfortably. I discussed the exam findings with her and I discussed the treatment plan. She verbalized complete understanding and agreement. She is ready to go home. Medical Decision Differential diagnosis: Etiologies such as musculoskeletal, disc herniation, fracture, aortic disease, metastatic disease, cord compression, discitis, infection, renal colic, gastrointestinal, acute exacerbation of chronic back pain, sciatica, cauda equina, as well as others were entertained. Nursing notes reviewed. Patient's previous electronic medical records reviewed. The patient is a 40-year-old female who presented to the emergency department at the request of her primary care physician for right flank pain. The patient has had ongoing right flank pain since earlier today. She has a history of her recent procedure to embolize a hepatic hemangioma. This was done at [facility]. The patient was seen here after the procedure for worsening pain. She was sent home and was feeling much better. The patient follow-up with her primary care physician today because worsening pain. She was told to come to the emergency department. The patient was treated with IV fluids IV pain medicine and IV antiemetics. I discussed the patient's laboratory and radiographic studies with her. The CT the abdomen and pelvis did not show any change. There is no hemorrhage associated with the liver at this time. She did not have any signs of ureteral calculi on CT. The patient's urinalysis did show some white blood cells in it however I do feel this is not a clean specimen but was sent for culture. Patient has noticed dysuria frequency or elevated white blood cell count. The patient was encouraged to rest and avoid any strenuous activity. She was encouraged to continue all medications as prescribed. She was also encouraged to follow-up with her family doctor as well as the physician who did her procedure at [facility]. Otherwise she was encouraged to return to the emergency department immediately if symptoms change worsen or if the need arises. Impression Primary Impression: Right flank pain Additional Impression: h/o embolization of hemangioma Scribe Attestation The scribe's documentation has been prepared under my direction and personally reviewed by me in its entirety. I confirm that the note above accurately reflects all work, treatment, procedures, and medical decision making performed by me. Departure Information Dispostion Home / Self-Care Referrals Celi Agustin D.O. (PCP) Forms HOME CARE DOCUMENTATION FORM, IMPORTANT VISIT INFORMATION, Work Instructions Patient Instructions ED Back Pain Acute Chronic, My [facility] Additional Instructions Continue all medications as prescribed. Rest and avoid any strenuous activity. Call your family to schedule a follow-up appointment. Your urine culture is pending and will be back in 2 days. I would not recommend any antibiotics at this time but if he develops signs of urinary tract infection such as frequency and pain with urination you may need an antibiotic. Follow-up with your physician at [facility] who did your procedure as well as. Problem Qualifiers
--- NOTE | 2016-06-02 14:57 | DIAGNOSTIC IMAGING REPORT ---
CHEST ONE VIEW PORTABLE HISTORY: Generalized abdominal pain. COMPARISON: Chest 05/28/2016. FINDINGS: The lungs are clear. Cardiac silhouette is normal in size. No pleural effusions. No pneumothorax. IMPRESSION: No acute process. Electronically signed by: Reno Chapman M.D. 06/02/2016 2:56 PM Dictated Date/Time: 06/02/2016 2:54 PM
[2016-06-02] MEDS: MoRPHine SULFATE 4 MG/ML 1 ML CARP\\VIAL IV PRN ×2 (15:00→15:54)
[2016-06-02 15:10] LABS: BASO % 0.9 %; BASO ABS # 0.04 K/uL (0-0.2); COMPLETE YES; EOS % 1.1 %; HEMATOCRIT 39.7 % (37-47); IG% 0.2 %; LYMPH ABS # 2.11 K/uL (1.2-3.4); MEAN CELL VOLUME 91.5 fL (80-100); MEAN CORPUSCULAR HEMOGLOBIN 31.6 pg (25-34); MEAN CORPUSCULAR HGB CONC 34.5 g/dl (32-36); MEAN PLATELET VOLUME 9.4 fL (7.4-10.4); MONO % 10.5 %; NEUT % 41.3 %; PLATELET COUNT 203 K/uL (130-400); RED BLOOD COUNT 4.34 M/uL (4.2-5.4); WHITE BLOOD COUNT 4.59 K/uL (4.8-10.8)
[2016-06-02 15:32] LABS: ALT/SGPT 39 U/L (12-78); BLOOD UREA NITROGEN 11 mg/dl (7-18); BUN/CREATININE RATIO 12.6 (10-20); CALCIUM 8.7 mg/dl (8.5-10.1); CARBON DIOXIDE 28 mmol/L (21-32); CHLORIDE 104 mmol/L (98-107); CREATININE 0.85 mg/dl (0.60-1.20); GLUCOSE 87 mg/dl (70-99); SODIUM 140 mmol/L (136-145)
[2016-06-02 15:35] LABS: ALKALINE PHOSPHATASE 83 U/L (45-117); AST/SGOT 18 U/L (15-37); PREG INTERNAL NEGATIVE QC NEG CLEAR BACKGROUND; PREG INTERNAL POSITIVE QC POS CONTROL LINE
[2016-06-02 15:58] LABS: ISTAT CREATININE 0.7 mg/dl (0.6-1.3); ISTAT HEMOGLOBIN 14.3 g/dl (12.0-16.0); ISTAT IONIZED CALCIUM 1.2 mmol/l (1.12-1.32)
[2016-06-02 16:24] LABS: PARTIAL THROMBOPLASTIN RATIO 0.9; PROTHROMBIN TIME (PATIENT) 10.2 SECONDS (9.0-12.0)
[2016-06-02] MEDS ORDERED: OPTIRAY 320 IV PRN (17:00)
[2016-06-02] MEDS ORDERED: HYDROmorphone INJ 1 MG/ML SYR IV STA (17:01)
[2016-06-02] MEDS ORDERED: HYDROmorphone INJ 1 MG/ML SYR ONE (17:01)
--- NOTE | 2016-06-02 17:01 | DIAGNOSTIC IMAGING REPORT ---
ABDOMEN AND PELVIS CT WITH IV CONTRAST CT DOSE: 387.21 mGy.cm HISTORY: Pain right flank pain, recent liver embolization, sent by PCP for CT TECHNIQUE: Multiaxial CT images of the abdomen and pelvis were performed following the use of intravenous contrast. COMPARISON STUDY: 05/28/2016 FINDINGS: No change based on CT examination compared to the prior exam. Post therapeutic embolization with low-density lesion of the posterior right hepatic lobe all of which are unchanged. No significant perihepatic fluid collections. Lung bases are clear. Kidneys enhance uniformly. Bowel pattern is nonobstructive. No significant fluid at the current time as compared to the prior study within the pelvic cul-de-sac. Improved postoperative changes right inguinal region. IMPRESSION: No major change compared to the prior study. Hepatic lesion unchanged in appearance. No new or interval finding. Electronically signed by: Lane Wagner M.D. 06/02/2016 5:00 PM Dictated Date/Time: 06/02/2016 4:58 PM
[2016-06-02 17:02] LABS: URINE APPEARANCE CLOUDY (CLEAR); URINE BILIRUBIN NEG (NEG); URINE COLOR DK YELLOW; URINE EPITHELIAL CELL AUTO >30 /lpf (0-5); URINE NITRITE NEG (NEG); URINE SPECIFIC GRAVITY 1.028 (1.000-1.030); UROBILINOGEN NEG (NEG)
[2016-06-02 17:05] LABS: MANUAL MICROSCOPIC REQUIRED? NO; REVIEW REQ? NO
[2016-06-02 19:08] VITALS: BP 118/74; PULSE 74; O2SAT 98
[2016-09-02] MEDS ORDERED: PROM25TA9 PO (13:21)
[2016-09-02] MEDS ORDERED: OXYC-57 PO (13:21)
== END 2016-06-02 17:55 | disposition home or self-care (01) ==
LOC: C.EDB 13:50
DX: R10.9 Unspecified abdominal pain (principal); F90.9 Attention-deficit hyperactivity disorder, unspecified type; E03.9 Hypothyroidism, unspecified

== ENCOUNTER → 2016-06-21 | Outpatient (CLI) | payer OTHER ==
[~2016-06-21] MED LIST changes: +DEXM1CAP PO; +DICY10CA12 PO; +DOCU-94 PO; +DROS1TAB2 PO; +FEXO1TAB49 PO; +FLUT0.15; +GADOXETATE DISODIUM (NON-WT BASED PROCEDURE) IV PRN; +ONDA4TAB65 PO; +PROM25TA9 PO; +SUMA50TA15 PO; +VALA1TAB2 PO; +ZOLP10TA PO
--- NOTE | 2016-06-21 16:13 | DIAGNOSTIC IMAGING REPORT ---
MRI OF THE ABDOMEN COMBO CLINICAL HISTORY: Liver embolization. COMPARISON STUDY: 04/07/2016. CT dated 06/02/2016.. TECHNIQUE: MRI of the abdomen is performed transverse T1 and T2-weighted sequences in the axial and coronal planes. Contrast enhanced sequences were acquired following the IV administration of 10 cc-year-old with. FINDINGS: Lower chest: No pleural effusion is identified. The heart is normal in size. Liver: Essentially unchanged to somewhat heterogeneous high signal lesion involving the right hepatic lobe. Dimensions are perhaps slightly diminished at maximum diameter of 5.3 cm. A central area in homogeneity is unchanged. Liver is otherwise uniform throughout There may be a small gallstone within the gallbladder lumen. Biliary duct system is normal in terms of caliber. Signal characteristics of the spleen and kidneys are unremarkable. Bowel pattern is nonobstructive throughout. Gallbladder: Unremarkable. Possible small gallstone versus overlap artifact Spleen: Normal in size and signal intensity. Pancreas: Unremarkable. Adrenal glands: Unremarkable. Kidneys: The kidneys are normal in size and without hydronephrosis. The kidneys enhance and excrete symmetrically. Bowel: Visualized portions of the small bowel and colon show no evidence of obstruction. Peritoneum: There is no abdominal ascites. Lymphadenopathy: None. Skeletal structures: Visualized skeletal structures times are normal marrow signal intensity. IMPRESSION: 1. Unchanging change hemangioma of the right hepatic lobe. 2. There may have been a slight decrease in overall volume compared to the prior studies. 3. Remainder the study is unremarkable and unchanged from prior examinations. Electronically signed by: Lane Wagner M.D. 06/21/2016 4:12 PM Dictated Date/Time: 06/21/2016 4:08 PM
== END | disposition home or self-care (01) ==
LOC: C.MRI 14:28
PROVIDERS: ATTEND Student in an Organized Health Care Education/Training Program
DX: R16.0 Hepatomegaly, not elsewhere classified (principal); D18.03 Hemangioma of intra-abdominal structures

== ENCOUNTER 2016-07-22 07:41 | Emergency (ER) | payer OTHER ==
[~2016-07-22] VITALS: Ht 175.3 cm; Wt 71.0 kg
[~2016-07-22 07:41] MED LIST changes: -DEXM1CAP PO; -DICY10CA12 PO; -DROS1TAB2 PO; -FLUT0.15; -GADOXETATE DISODIUM (NON-WT BASED PROCEDURE) IV PRN; -ONDA4TAB65 PO; -PROM25TA9 PO; -SUMA50TA15 PO; -VALA1TAB2 PO; -ZOLP10TA PO
[2016-07-22 07:49] VITALS: TEMP 36.8
[2016-07-22] MEDS ORDERED: SODIUM CHLORIDE 0.9% 1000ML 1,000 ML IV STA (07:50)
[2016-07-22 08:02] VITALS: Ht 175.3 cm; Wt 71.0 kg
--- NOTE | 2016-07-22 08:07 | DIAGNOSTIC IMAGING REPORT ---
CHEST ONE VIEW PORTABLE CLINICAL HISTORY: EVALUATE ALTERED MENTAL STATUS/WEAKNESS COMPARISON STUDY: 06/02/2016 FINDINGS: Subtle indistinctness of the left hemidiaphragm compared to the prior study. A minimal left basilar infiltrate is potentially present. Lungs otherwise appear clear. Right hemidiaphragm is smooth. IMPRESSION: Minimal interstitial infiltrate left base. Electronically signed by: Lane Wagner M.D. 07/22/2016 8:05 AM Dictated Date/Time: 07/22/2016 8:04 AM
[2016-07-22 08:08] VITALS: O2SAT 99
[2016-07-22 08:24] LABS: BASO % 0.4 %; BASO ABS # 0.02 K/uL (0-0.2); COMPLETE YES; EOS % 0.6 %; HEMATOCRIT 40.6 % (37-47); LYMPH % 43.3 %; LYMPH ABS # 2.01 K/uL (1.2-3.4); MEAN CELL VOLUME 93.1 fL (80-100); MEAN CORPUSCULAR HEMOGLOBIN 31.7 pg (25-34); MEAN PLATELET VOLUME 9.5 fL (7.4-10.4); MONO % 8.2 %; NEUT % 47.5 %; PLATELET COUNT 171 K/uL (130-400); RED BLOOD COUNT 4.36 M/uL (4.2-5.4); WHITE BLOOD COUNT 4.64 K/uL (4.8-10.8)
[2016-07-22 08:31] LABS: INR 0.9 (0.9-1.1); PARTIAL THROMBOPLASTIN RATIO 0.9; PROTHROMBIN TIME (PATIENT) 9.9 SECONDS (9.0-12.0)
[2016-07-22 08:41] LABS: ALT/SGPT 22 U/L (12-78); BLOOD UREA NITROGEN 17 mg/dl (7-18); BUN/CREATININE RATIO 21.4 (10-20); CALCIUM 8.8 mg/dl (8.5-10.1); CARBON DIOXIDE 23 mmol/L (21-32); CHLORIDE 108 mmol/L (98-107); CREATININE 0.81 mg/dl (0.60-1.20); GLUCOSE 80 mg/dl (70-99); MAGNESIUM 1.9 mg/dl (1.8-2.4); SODIUM 140 mmol/L (136-145)
[2016-07-22 08:50] LABS: ALKALINE PHOSPHATASE 71 U/L (45-117); AST/SGOT 16 U/L (15-37); PHOSPHORUS 1.6 mg/dl (2.5-4.9)
--- NOTE | 2016-07-22 08:52 | DIAGNOSTIC IMAGING REPORT ---
HEAD CT NONCONTRAST CT DOSE: 638.56 mGycm HISTORY: NEAR SYNCOPE TECHNIQUE: Multiaxial CT images of the head were performed without the use of intravenous contrast. Comparison: None. Findings: The paranasal sinuses and mastoid air cells are clear. The calvarium and skull base are intact. The ventricles and sulci are within normal limits. There is no mass, hematoma, midline shift, or acute infarct. Impression: No acute intracranial abnormality. Electronically signed by: Lane Wagner M.D. 07/22/2016 8:49 AM Dictated Date/Time: 07/22/2016 8:48 AM
[2016-07-22 10:28] LABS: URINE APPEARANCE CLEAR (CLEAR); URINE BILIRUBIN NEG (NEG); URINE COLOR YELLOW; URINE NITRITE NEG (NEG); URINE SPECIFIC GRAVITY 1.007 (1.000-1.030); UROBILINOGEN NEG (NEG)
[2016-07-22 10:31] LABS: MANUAL MICROSCOPIC REQUIRED? NO; REVIEW REQ? NO
[2016-07-22 10:58] LABS: BENZODIAZEPINE, URINE NEG (NEG); COCAINE,URINE NEG (NEG); PHENCYCLIDINE, URINE NEG (NEG)
[2016-07-22 12:08] VITALS: BP 118/65; PULSE 76; O2SAT 99
--- NOTE | 2016-07-22 12:16 | EMERGENCY ROOM VISIT NOTE ---
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 Per staff there she was in a meeting and became dizzy and felt like she may pass out so she was sat down in a chair then placed on litter. Patient reports that she is being followed for a mass on her liver and always has right sided flank pain. Patient states she is having pain into her right shoulder. Patient felt sick yesterday and called off work because she was having dizziness patient did see pcp yesterday and had an EKG and states they ordered some lab studies. History of Present Illness The patient is a 40 year old female who presents to the Emergency Room with complaints of a near syncopal episode with associated lightheadedness. The patient reports that she had an initial episode of the symptoms yesterday at work. She called her family doctor and was seen in the office with a normal ECG. Additional lab work was performed. The patient reports that she ate breakfast this morning. She does not feel dehydrated. At work again this morning, a similar episode occurred. She did not notice any chest pain. She did report having some mild shortness of breath that she attributes to anxiety. She denies any recent illness. The patient does have a history of hypothyroidism. The patient reports that her blood pressure and heart rate are usually lower. She denies any headaches. The patient is currently being followed for a liver hemangioma. She had embolism 2 performed with resolving acute pancreatitis. She has had some epigastric tenderness to palpation lately. She denies any urinary symptoms or diarrhea. She denies . Review of Systems HEENT: Denies visual problems, hearing loss, tinnitus. Denies difficulty swallowing or oral lesions. PULMONARY: Denies cough, significant shortness of breath, sputum production or hemoptysis. CARDIOVASCULAR: Denies chest pain, palpitations, dyspnea on exertion, orthopnea or peripheral edema. GASTROINTESTINAL: Denies diarrhea, constipation, nausea, vomiting, or abdominal pain. GENITOURINARY: Denies dysuria, frequency, urgency or nocturia. NEUROLOGIC: Denies history of epilepsy, CVA, TIA or chronic headaches. MUSCULOSKELETAL: Denies history of joint tenderness/swelling. SKIN: Denies rashes or lesions. PSYCHIATRIC: Denies history of depression or mental illness. ENDOCRINE: Denies history of diabetes. Does have a history of hypothyroidism. Past Medical/Surgical History Medical Problems: (1) Acute pancreatitis (2) ADD (attention deficit disorder) (3) Endometriosis (4) Hypothyroidism (5) Liver hemangioma (6) PCOS (polycystic ovarian syndrome) Family History Cancer Diabetes mellitus Hypertension Social History Smoking Status: Never Smoker Drug Use: none Marital Status: Housing Status: lives with family Current/Historical Medications Scheduled Control Pills ( Control Pills), 1 TAB PO DAILY Fexofenadine Hcl (Gianna Allergy), 1 TAB PO DAILY Levothyroxine Sodium (Synthroid), 150 MCG PO DAILY Multivitamin (Multivitamin), 1 TAB PO DAILY Scheduled PRN Docusate Sodium (Colace), 1 CAP PO BID PRN for Constipation Ondansetron Hcl (Zofran), 4 MG PO Q6 PRN for Nausea Oxycodone/Acetaminophen 5MG/325MG (Percocet 5MG/325MG), 1 TAB PO Q4H PRN for Pain Polyethylene (Miralax), 17 GM PO DAILY PRN for Constipation Tramadol (Ultram), 50 MG PO Q6 PRN for Pain Allergies Coded Allergies: Cephalosporins (Unverified Allergy, Intermediate, HIVES, 07/22/16) Penicillins (Verified Allergy, Unknown, 07/22/16) Vancomycin (Verified Allergy, Unknown, ANAPHYLAXIS, 07/22/16) Adhesives (Verified Adverse Reaction, Unknown, "SENSITIVE TO TAPE", 07/22/16 ) Physical Exam Vital Signs Date Time Temp Pulse Resp B/P Pulse Ox O2 Delivery O2 Flow Rate FiO2 07/22/16 10:11 81 20 114/71 99 Room Air 07/22/16 08:52 62 07/22/16 08:44 65 103/70 62 110/77 75 102/79 07/22/16 08:25 78 20 102/79 99 Room Air 07/22/16 08:08 99 Room Air 07/22/16 07:49 36.8 88 20 138/76 100 Room Air Physical Exam CONSTITUTIONAL: Healthy and well nourished. Alert and oriented X 3 with positive affect. PSYCHIATRIC: The patient is mildly anxious. HEENT: Normocephalic, atraumatic. Pupils equal, round and reactive. Ears and nares are clear. No scleral icterus or conjunctival injection/pallor. OROPHARYNX: Mucous membranes are dry. No tonsillar hypertrophy or exudates. NECK: Full active range of motion without discomfort. No JVD or carotid bruits. RESPIRATORY: Clear to auscultation bilaterally with no wheezing, crackles, rhonchi or stridor. CARDIOVASCULAR: Regular rate and rhythm with no murmurs, rubs or gallops. GASTROINTESTINAL: Bowel sounds present in all quadrants. Patient has mild epigastric and suprapubic tenderness to palpation. Negative McBurney's point tenderness. Negative CVA tenderness. No obvious hepatosplenomegaly. No abdominal rigidity, guarding or rebound. MUSCULOSKELETAL: Full range of motion of all joints without discomfort. INTEGUMENTARY: No rash or other significant dermatologic conditions noted. HEMATOLOGIC: No ecchymosis or petechiae. NEUROLOGIC: No focal neurologic deficits noted. Medical Decision & Procedures ER Provider Diagnostic Interpretation: My interpretation of an ECG shows a normal sinus rhythm of [address] elevation or other conduction abnormalities. My interpretation of a portable chest x-ray shows a minimal interstitial infiltrate of the left base. Radiologist report is as follows: CHEST ONE VIEW PORTABLE CLINICAL HISTORY: EVALUATE ALTERED MENTAL STATUS/WEAKNESS COMPARISON STUDY: 06/02/2016 FINDINGS: Subtle indistinctness of the left hemidiaphragm compared to the prior study. A minimal left basilar infiltrate is potentially present. Lungs otherwise appear clear. Right hemidiaphragm is smooth. IMPRESSION: Minimal interstitial infiltrate left base. Noncontrast CT of the head does not show any acute bleed, midline shift or mass effect. Radiologist report is as follows: HEAD CT NONCONTRAST CT DOSE: 638.56 mGycm HISTORY: NEAR SYNCOPE TECHNIQUE: Multiaxial CT images of the head were performed without the use of intravenous contrast. Comparison: None. Findings: The paranasal sinuses and mastoid air cells are clear. The calvarium and skull base are intact. The ventricles and sulci are within normal limits. There is no mass, hematoma, midline shift, or acute infarct. Impression: No acute intracranial abnormality. Laboratory Results 07/22/16 08:05 Red Blood Count 4.36, Mean Corpuscular Volume 93.1, Mean Corpuscular Hemoglobin 31.7, Mean Corpuscular Hemoglobin Concent 34.0, Mean Platelet Volume 9.5, Neutrophils (%) (Auto) 47.5, Lymphocytes (%) (Auto) 43.3, Monocytes (%) (Auto) 8.2, Eosinophils (%) (Auto) 0.6, Basophils (%) (Auto) 0.4, Neutrophils # (Auto) 2.20, Lymphocytes # (Auto) 2.01, Monocytes # (Auto) 0.38, Eosinophils # (Auto) 0.03, Basophils # (Auto) 0.02 07/22/16 08:05 Test 07/22/16 08:05 07/22/16 08:09 07/22/16 10:00 White Blood Count 4.64 K/uL (4.8-10.8) Red Blood Count 4.36 M/uL (4.2-5.4) Hemoglobin 13.8 g/dL (12.0-16.0) Hematocrit 40.6 % (37-47) Mean Corpuscular Volume 93.1 fL (80-100) Mean Corpuscular Hemoglobin 31.7 pg (25-34) Mean Corpuscular Hemoglobin Concent 34.0 g/dl (32-36) Platelet Count 171 K/uL (130-400) Mean Platelet Volume 9.5 fL (7.4-10.4) Neutrophils (%) (Auto) 47.5 % Lymphocytes (%) (Auto) 43.3 % Monocytes (%) (Auto) 8.2 % Eosinophils (%) (Auto) 0.6 % Basophils (%) (Auto) 0.4 % Neutrophils # (Auto) 2.20 K/uL (1.4-6.5) Lymphocytes # (Auto) 2.01 K/uL (1.2-3.4) Monocytes # (Auto) 0.38 K/uL (0.11-0.59) Eosinophils # (Auto) 0.03 K/uL (0-0.5) Basophils # (Auto) 0.02 K/uL (0-0.2) RDW Standard Deviation 46.7 fL (36.4-46.3) RDW Coefficient of Variation 13.7 % (11.5-14.5) Immature Granulocyte % (Auto) 0.0 % Immature Granulocyte # (Auto) 0.00 K/uL (0.00-0.02) Prothrombin Time 9.9 SECONDS (9.0-12.0) Prothromb Time International Ratio 0.9 (0.9-1.1) Activated Partial Thromboplast Time 23.9 SECONDS (21.0-31.0) Partial Thromboplastin Ratio 0.9 Anion Gap 9.0 mmol/L (3-11) Est Creatinine Clear Calc Drug Dose 97.5 ml/min Estimated GFR () 106.0 Estimated GFR (Non- 91.5 BUN/Creatinine Ratio 21.4 (10-20) Calcium Level 8.8 mg/dl (8.5-10.1) Phosphorus Level 1.6 mg/dl (2.5-4.9) Magnesium Level 1.9 mg/dl (1.8-2.4) Total Bilirubin 0.3 mg/dl (0.2-1) Direct Bilirubin < 0.1 mg/dl (0-0.2) Aspartate Amino Transf (AST/SGOT) 16 U/L (15-37) Alanine Aminotransferase (ALT/SGPT) 22 U/L (12-78) Alkaline Phosphatase 71 U/L (45-117) Total Creatine Kinase 74 U/L (26-192) Total Protein 7.1 gm/dl (6.4-8.2) Albumin 3.4 gm/dl (3.4-5.0) Lipase 201 U/L (73-393) Thyroid Stimulating Hormone (TSH) 3.260 uIu/ml (0.300-4.500) Bedside D-Dimer 427 ng/mlFEU (0-450) Bedside Troponin I 0.000 ng/ml (0-0.045) Urine Color YELLOW Urine Appearance CLEAR (CLEAR) Urine pH 7.0 (4.5-7.5) Urine Specific Byron 1.007 (1.000-1.030) Urine Protein NEG (NEG) Urine Glucose (UA) NEG (NEG) Urine Ketones NEG (NEG) Urine Occult Blood NEG (NEG) Urine Nitrite NEG (NEG) Urine Bilirubin NEG (NEG) Urine Urobilinogen NEG (NEG) Urine Leukocyte Esterase NEG (NEG) Urine Test NEG (NEG) Urine Opiates Screen NEG (NEG) Urine Methadone, Qualitative NEG (NEG) Urine Barbiturates NEG (NEG) Urine Phencyclidine (PCP) Level NEG (NEG) Ur Amphetamine/Methamphetamine NEG (NEG) MDMA (Ecstasy) Screen NEG (NEG) Urine Benzodiazepines Screen NEG (NEG) Urine Cocaine Metabolite NEG (NEG) Urine Marijuana (THC) NEG (NEG) The above labs were reviewed. The patient has a low phosphorus of 1.6, otherwise remaining labs were normal, including bedside d-dimer and troponin. Urine drug screen is also negative. Medications Administered Medications (Trade) Dose Ordered Sig/Jurgen Route Start Time Stop Time Status Last Admin Dose Admin Sodium Chloride (Nss 1000ml) 1,000 ml @ 999 mls/hr Q1H1M STAT IV 07/22/16 07:50 07/22/16 08:50 DC 07/22/16 08:50 999 MLS/HR ED Course Patient history and physical exam were performed. Nurse's notes were reviewed. Vital signs were reviewed and were normal. IV access was established, and labs were drawn. Orthostatics were performed and were normal. The patient received a liter normal saline bolus. Review of labs shows hyperphosphatemia, otherwise remaining labs were normal without evidence for anemia. The patient is euthyroid. LFTs and lipase are normal, which were ordered because of the patient's history of pancreatitis and liver mass. ECG was normal. The radiologist questioned a mild left basilar interstitial infiltrate. X-rays and presenting case were also reviewed with Dr. Finch, ED attending physician, who does not feel that antibiotic treatment is warranted since the patient has had no respiratory symptoms. At this point, I did suggest that the patient follow up with cardiology for further reevaluation. She was provided contact information for [facility]. She was instructed to return to the emergency department for any progressively worsening symptoms. I did encourage her not to drive because of her symptoms. She was encouraged to remain well-hydrated. I also encouraged her to follow-up with her PCP to follow her low phosphorus level. After the patient was provided with her discharge packet, she became unhappy for several reasons. The patient reports that she "does not have time to wait for all of this workup". She wanted to know why a Holter monitor could not be ordered and applied in the emergency department. The patient was advised that the emergency department does not follow-up with Holter monitor readings, and that she would need an order from cardiology or her family doctor to do so. Our Mud [employer] Operator also got involved and set up an appointment with [facility]ology on 07/28/16. The patient was not happy about this either. We also contacted her PCP's office to see if they would order the Holter for her. A message was left with Dr. Agustin, and that office staff would call her to let her know if they agreed to do this ordered. The patient then started to argue about her ability to work with her symptoms. I explained to the patient that certainly she could actually have a syncopal episode while working. However, I also explained that I would not provide a note to release her to work as it is not my responsibility to clear her for full duty. I also wrote on her discharge instructions that she should not drive until being evaluated by cardiology. She got upset with that statement as well. The patient was politely advised that I have nothing more to offer as far as workup. She then started to complain about not getting adequate treatment for her liver hemangioma, loss of appetite and rectal bleeding that has been addressed with her PCP. The patient was again reminded that she needs to discuss this with her PCP. She was also encouraged to discuss her situation with her employer, and may need to take personal or medical time off until this issue is addressed. She was encouraged to return to the emergency department for any progressively worsening symptoms. Medical Decision Patient presents to the emergency department with near syncope yesterday and today. Her workup today is unremarkable. Cardiac monitoring did not show any cardiac dysrhythmias. Her workup today is not suggestive of infarction, pulmonary embolus, pneumothorax or convincing pneumonia. The patient is not anemic. She is euthyroid. Urinalysis is not suggestive of infection, and the patient is not . CT scan does not show any intracranial etiologies. Critical exam is not suggestive of CVA or TIA. I do not suspect overwhelming infection. I do feel that the patient warrants a Holter monitor for further cardiac workup. Impression Primary Impression: Near syncope Additional Impression: Low serum phosphorus for age Departure Information Referrals Celi Agustin D.O. (PCP) Patient Instructions My [facility] Problem Qualifiers
[2016-09-02] MEDS ORDERED: OXYC-57 PO (13:21)
[2016-09-02] MEDS ORDERED: PROM25TA9 PO (13:21)
== END 2016-07-22 12:08 | disposition home or self-care (01) ==
LOC: EDBD 07:41 → C.EDA 07:43
DX: R55 Syncope and collapse (principal); E83.39 Other disorders of phosphorus metabolism; F41.9 Anxiety disorder, unspecified; D18.03 Hemangioma of intra-abdominal structures; E03.9 Hypothyroidism, unspecified; F98.8 Other specified behavioral and emotional disorders with onset usually occurring in childhood and adolescence; N80.9 Endometriosis, unspecified; E28.2 Polycystic ovarian syndrome; Z79.3 Long term (current) use of hormonal contraceptives; Z83.3 Family history of diabetes mellitus; Z82.49 Family history of ischemic heart disease and other diseases of the circulatory system

== ENCOUNTER 2016-08-31 06:44 | Inpatient (IN) | payer OTHER ==
[~2016-08-31] VITALS: Ht 175.3 cm; Wt 74.8 kg
[2016-08-31] VITALS (9 sets, daily range): BP systolic 102–118; BP diastolic 65–79; PULSE 47–76; TEMP 36.6–36.9; O2SAT 94–100; Ht 175.3 cm; Wt 74.8 kg
[2016-08-31 07:22] LABS: BASO % 0.2 %; BASO ABS # 0.01 K/uL (0-0.2); COMPLETE YES; EOS % 0.7 %; HEMATOCRIT 40.6 % (37-47); IG% 0.2 %; LYMPH % 40.2 %; LYMPH ABS # 2.27 K/uL (1.2-3.4); MEAN CELL VOLUME 94.2 fL (80-100); MEAN CORPUSCULAR HEMOGLOBIN 31.8 pg (25-34); MEAN CORPUSCULAR HGB CONC 33.7 g/dl (32-36); MEAN PLATELET VOLUME 9.7 fL (7.4-10.4); NEUT % 50.7 %; PLATELET COUNT 148 K/uL (130-400); RED BLOOD COUNT 4.31 M/uL (4.2-5.4); WHITE BLOOD COUNT 5.65 K/uL (4.8-10.8)
--- NOTE | 2016-08-31 07:26 | DIAGNOSTIC IMAGING REPORT ---
CHEST ONE VIEW PORTABLE CLINICAL HISTORY: Chest Pain dyspnea COMPARISON STUDY: 07/22/2016 FINDINGS: Subtle left basilar interstitial change. Lungs otherwise are clear. There are no focal or consolidative infiltrative changes. Diaphragms are smooth. IMPRESSION: Minimal interstitial change left base. Otherwise negative study Electronically signed by: Lane Wagner M.D. 08/31/2016 7:24 AM Dictated Date/Time: 08/31/2016 7:24 AM
[2016-08-31 07:43] LABS: BLOOD UREA NITROGEN 17 mg/dl (7-18); BUN/CREATININE RATIO 22.3 (10-20); CALCIUM 8.9 mg/dl (8.5-10.1); CARBON DIOXIDE 27 mmol/L (21-32); CHLORIDE 108 mmol/L (98-107); CREATININE 0.75 mg/dl (0.60-1.20); GLUCOSE 74 mg/dl (70-99); POTASSIUM 3.8 mmol/L (3.5-5.1); SODIUM 141 mmol/L (136-145)
[2016-08-31] MEDS ORDERED: ONDANSETRON INJ 2 MG/ML 2 ML VIAL IV PRN (10:45)
[2016-08-31] MEDS ORDERED: ACETAMINOPHEN 325 MG TAB PO PRN (10:45)
--- NOTE | 2016-08-31 10:57 | Progress Note ---
Progress Note Date of Service August 31, 2016. Progress Note Full EP consult dictated; pt known to me from the office continues to have frequent near syncopal episodes; recent cardionet event monitor correlated with significant sinus bradycardia with up to 3.1sec pause. Pt will be monitored overnight for ppm in morning
[2016-08-31] MEDS ORDERED: CLINDAMYCIN IV 600 MG in DEXTROSE 5% ADD-VANTAGE 50ML 50 ML IV SCH (11:30)
--- NOTE | 2016-08-31 11:38 | EMERGENCY ROOM VISIT NOTE ---
History Report prepared by Jose Alejandro: Debra Fernández Under the Supervision of: Dr. Waqas Guo D.O. First contact with patient: 06:55 Chief Complaint: OTHER COMPLAINT Stated Complaint: SOB,WEAK History of Present Illness The patient is a 40 year old female who presents to the Emergency Room with complaints of a sudden episode of near-syncope that occurred FAMILY PARTNER. Earlier today , the patient's legs became weak and then she became pale, diaphoretic, and lightheaded like she was going to experience syncope. The patient sat down and did not experience LOC. She states that she has experienced one syncopal episode and several near-syncope episodes in the past with the same symptoms, so she is able to anticipate when it is going to happen. The patient states that she is able to avoid syncope if she sits down after she begins to experience leg weakness, which is what she did today. She states that after she sits down she typically feels fine. The patient states that she experiences these episodes a few times a week. She denies headaches, abdominal pain, nausea , vomiting, and diarrhea, along with any other complaints. The patient was seen in the ED for same symptoms on July 22, 2016. She was referred to cardiology for further work-up. She states that she has been following with Dr. Denson - Electrophysiology and Dr. Crum - Cardiology. The patient states that a cardiac event monitor showed that her heart rate drops down into the 20s and then stops intermittently for 2-3 seconds at a time, which may be what is causing her symptoms. The patient talked to Dr. Denson yesterday and discussed the option of a pacemaker. The patient states that she has tilt table test and a pacemaker insertion scheduled for tomorrow. However, according to Dr. Denson's note on , she recommended a tilt followed by LINQ insertion if negative, but she also discussed the possibility of a pacer. Source of History: patient, other (Dr. Denson's notes) Onset: FAMILY PARTNER Position: other (global) Quality: other (near-syncope) Timing: other (sudden) Associated Symptoms: + diaphoresis, + weakness (bilateral legs), No abdominal pain, No diarrhea, No headache, No nausea, No vomiting Note: pale, lightheadedness Review of Systems See HPI for pertinent positives & negatives. A total of 10 systems reviewed and were otherwise negative. Past Medical & Surgical Medical Problems: (1) Acute pancreatitis (2) ADD (attention deficit disorder) (3) Endometriosis (4) Hypothyroidism (5) Liver hemangioma (6) Near syncope (7) PCOS (polycystic ovarian syndrome) Family History Cancer Diabetes mellitus Hypertension Social History Smoking Status: Never Smoker Drug Use: none Marital Status: Housing Status: lives with family Current/Historical Medications Scheduled Control Pills ( Control Pills), 1 TAB PO DAILY Fexofenadine Hcl (Gianna Allergy), 1 TAB PO DAILY Levothyroxine Sodium (Synthroid), 150 MCG PO DAILY Multivitamin (Multivitamin), 1 TAB PO DAILY Scheduled PRN Docusate Sodium (Colace), 1 CAP PO BID PRN for Constipation Allergies Coded Allergies: Cephalosporins (Unverified Allergy, Intermediate, HIVES, 07/22/16) Penicillins (Verified Allergy, Unknown, 07/22/16) Vancomycin (Verified Allergy, Unknown, ANAPHYLAXIS, 07/22/16) Adhesives (Verified Adverse Reaction, Unknown, "SENSITIVE TO TAPE", 07/22/16 ) Physical Exam Vital Signs Date Time Temp Pulse Resp B/P Pulse Ox O2 Delivery O2 Flow Rate FiO2 08/31/16 08:11 82 16 105/54 100 Room Air 08/31/16 07:09 100 Room Air 08/31/16 06:59 84 08/31/16 06:47 36.5 96 18 104/75 100 Room Air Physical Exam GENERAL: alert, sitting up in bed, well appearing, well nourished, no distress, non-toxic EYE EXAM: normal conjunctiva, PERRL and EOM's intact OROPHARYNX: no exudate, no erythema, lips, buccal mucosa, and tongue normal and mucous membranes are moist NECK: supple, no nuchal rigidity, no adenopathy, non-tender LUNGS: Clear to auscultation. Normal chest wall mechanics HEART: no murmurs, S1 normal and S2 normal ABDOMEN: abdomen soft, non-tender, normo-active bowel sounds, no masses, no rebound or guarding. BACK: Back is symmetrical on inspection and there is no deformity, no midline tenderness, no CVA tenderness. SKIN: no rashes and no bruising UPPER EXTREMITIES: upper extremities are grossly normal. LOWER EXTREMITIES: No pitting edema. NEURO EXAM: Normal sensorium, cranial nerves II-XII intact, normal speech, no weakness of arms, no weakness of legs. No drift. Finger to nose intact. Gross sensation intact. Medical Decision & Procedures ER Provider Diagnostic Interpretation: Radiology results as stated below per my review and the radiologist's interpretation: CHEST ONE VIEW PORTABLE FINDINGS: Subtle left basilar interstitial change. Lungs otherwise are clear. There are no focal or consolidative infiltrative changes. Diaphragms are smooth. IMPRESSION: Minimal interstitial change left base. Otherwise negative study Electronically signed by: Lane Wagner M.D. 08/31/2016 7:24 AM Dictated Date/Time: 08/31/2016 7:24 AM Laboratory Results 08/31/16 07:05 Red Blood Count 4.31, Mean Corpuscular Volume 94.2, Mean Corpuscular Hemoglobin 31.8, Mean Corpuscular Hemoglobin Concent 33.7, Mean Platelet Volume 9.7, Neutrophils (%) (Auto) 50.7, Lymphocytes (%) (Auto) 40.2, Monocytes (%) (Auto) 8.0, Eosinophils (%) (Auto) 0.7, Basophils (%) (Auto) 0.2, Neutrophils # (Auto) 2.87, Lymphocytes # (Auto) 2.27, Monocytes # (Auto) 0.45, Eosinophils # (Auto) 0.04, Basophils # (Auto) 0.01 08/31/16 07:05 Test 08/31/16 07:05 White Blood Count 5.65 K/uL (4.8-10.8) Red Blood Count 4.31 M/uL (4.2-5.4) Hemoglobin 13.7 g/dL (12.0-16.0) Hematocrit 40.6 % (37-47) Mean Corpuscular Volume 94.2 fL (80-100) Mean Corpuscular Hemoglobin 31.8 pg (25-34) Mean Corpuscular Hemoglobin Concent 33.7 g/dl (32-36) Platelet Count 148 K/uL (130-400) Mean Platelet Volume 9.7 fL (7.4-10.4) Neutrophils (%) (Auto) 50.7 % Lymphocytes (%) (Auto) 40.2 % Monocytes (%) (Auto) 8.0 % Eosinophils (%) (Auto) 0.7 % Basophils (%) (Auto) 0.2 % Neutrophils # (Auto) 2.87 K/uL (1.4-6.5) Lymphocytes # (Auto) 2.27 K/uL (1.2-3.4) Monocytes # (Auto) 0.45 K/uL (0.11-0.59) Eosinophils # (Auto) 0.04 K/uL (0-0.5) Basophils # (Auto) 0.01 K/uL (0-0.2) RDW Standard Deviation 44.4 fL (36.4-46.3) RDW Coefficient of Variation 12.8 % (11.5-14.5) Immature Granulocyte % (Auto) 0.2 % Immature Granulocyte # (Auto) 0.01 K/uL (0.00-0.02) D-Dimer 330 ug/L FEU (0-500) Anion Gap 6.0 mmol/L (3-11) Est Creatinine Clear Calc Drug Dose 105.3 ml/min Estimated GFR () 116.4 Estimated GFR (Non- 100.4 BUN/Creatinine Ratio 22.3 (10-20) Calcium Level 8.9 mg/dl (8.5-10.1) Total Creatine Kinase 35 U/L (26-192) Creatine Kinase MB < 0.5 ng/ml (0.5-3.6) Creatine Kinase MB Ratio (0-3.0) Troponin I < 0.015 ng/ml (0-0.045) Laboratory results per my review. ECG Indication: weakness Rate (beats per minute): 94 Rhythm: sinus rhythm Findings: other (normal axis, normal intervals, low voltage QRS) ED Course ED COURSE: Vital signs were reviewed and showed normal. The patients medical record was reviewed The above diagnostic studies were performed and reviewed. ED treatments and interventions as stated above. 0655: The patient was evaluated in room B2. A complete history and physical examination was performed. 0712: I reassessed the patient and discussed Dr. Denson's notes. The patient informed me that she talked to Dr. Denson yesterday, which is when they had a discussion about the pacemaker. 0803: I reviewed the patient's case with Dr. Denson - Electrophysiology. She is going to come in to evaluate the patient. 0844: Dr. Denson is at bedside and evaluating the patient. 0907: Dr. Denson finished evaluating the patient. She requested that I admit the patient to medicine and she will consult. 16: I reviewed the patient's case with Mary Calderón. She will evaluate the patient for further management. 919: Upon reevaluation, the patient is resting comfortably. I discussed my findings with the patient and she understands and agrees with the treatment plan. Based on the patients age, coexisting illnesses, exam and lab findings the decision to treat as an inpatient was made. The patient remained stable while under my care. The patient will be evaluated for further management. Medical Decision Differential diagnosis includes etiologies such as benign positional vertigo, dehydration, hypovolemia, anemia, tumor, infection, hypoglycemia, electrolyte abnormalities, cardiac sources, intracerebral event, toxicologic, neurologic, as well as others were entertained. Patient is a 40-year-old female who presents the ER following a presyncopal episode. She has been worked up by electrophysiology extensively. She is set tomorrow to have a TILT and if negative a LINQ. Patient had 2 episodes of near- syncope recently. On Holter monitor she does have previous bradycardia with pauses. 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 EKG along with CBC and BMP was unremarkable. Troponin was negative. D-dimer was negative. Chest x-ray was unremarkable. I discussed case with her crane chaser who evaluated her at bedside and recommended observation overnight with these persistent episodes. She will further evaluate her for possible pacemaker with her bradycardia and intermittent syncope. Patient was admitted to internal medicine for further workup. Consults Time Called: 750 Consulting Physician: Dr. Denson - Electrophysiology Returned Call: 08 I reviewed the patient's case with Dr. Denson - Electrophysiology. She is going to come in to evaluate the patient. Additional Consults: Time Called: 913 Consulted Physician: Mary Calderón Returned Call: 915 Additional Comments: I reviewed the patient's case with Mary Calderón. She will evaluate the patient for further management. Impression Primary Impression: Near syncope Scribe Attestation The scribe's documentation has been prepared under my direction and personally reviewed by me in its entirety. I confirm that the note above accurately reflects all work, treatment, procedures, and medical decision making performed by me. Departure Information Dispostion Being Evaluated By Hospitalist Celi Ly D.O. (PCP) Patient Instructions [facility]
--- NOTE | 2016-08-31 12:22 | CARDIOLOGY CONSULTATION ---
DATE OF CONSULTATION: 08/31/2016 DATE OF CONSULTATION: 08/31/2016. CONSULTING PHYSICIAN: Dr. Guo. REASON FOR CONSULTATION: Lightheadedness, dizziness, near syncope. HISTORY OF PRESENT ILLNESS: This is a 40-year-old female who is known to me from the office. She had a syncopal event about a few weeks ago while at work. In addition, she has been having over the last month or 2 more frequent episodes of presyncope where she feels her legs getting weak, turns pale, diaphoretic and lightheaded and dizzy. She for the most part is able to sit down and feels immediately better. She wore a [employer] event monitor that although she did not have any arnulfo syncope when wearing it, she did have the symptoms of near syncope and this demonstrated sinus rhythm with periods of bradycardia, sometimes in the refrigeration system installer hours when the patient is getting up for work, the longest pause was 3.1 seconds, the bradycardia seemed to correlate with possible symptoms when I was in the office talking to her going over it. 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 She felt weak, her legs were about to give out, she was campa, diaphoretic and fortunately she did make it to the locker room and sat down before passing out. Her coworkers saw this and were concerned and she was brought to the Emergency Room. Since then she has been in normal sinus rhythm and no arrhythmias on telemetry. She was due to have a tilt table with possible pacemaker versus LINC insertion tomorrow in the EP lab with me. She reports since I saw her 4 days ago in the office she has had 3 episodes now, one when she was actually just lying in bed. PAST MEDICAL HISTORY: Syncope, bradycardia, hypothyroidism, hemangioma of the liver and endometriosis. PAST SURGICAL HISTORY: Ablation of the liver, hemangioma with partial success in May 2015 as well as May 2016. ALLERGY: VANCOMYCIN, CEPHALOSPORINS, PENICILLIN. FAMILY HISTORY: Father has diabetes and hypertension. Denies any sudden cardiac within the family. SOCIAL HISTORY: She is . She has 2 children. 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 She is a lifelong nonsmoker. Rare use of alcohol. She has 2 children 21 and 16. REVIEW OF SYSTEMS: All other 10 point review of systems were reviewed and are essentially negative at this time. See HPI for pertinent positives. PHYSICAL EXAMINATION: VITAL SIGNS: His heart rate 82 in sinus rhythm on telemetry. Blood pressure 105/54, respirations 16, oxygen saturation 100% on room air. GENERAL: She is awake, alert, and oriented x3 in no acute distress sitting up in the bed comfortably. HEAD, EYES, EARS, NOSE, AND THROAT: Normocephalic, atraumatic. Extraocular motion intact. Sclerae are nonicteric. Mucous membranes are moist. NECK: Supple, no carotid bruits appreciated. No JVD. Carotid upstrokes normal. CARDIOVASCULAR: Normal S1, S2, regular rate and rhythm, no murmur appreciated. PULMONARY: Clear to auscultation without wheezes, rales or rhonchi. ABDOMEN: Positive bowel sounds, soft, nontender, nondistended. EXTREMITIES: No clubbing or cyanosis of fingers. Peripheral pulses intact. NEUROLOGIC: Grossly intact. SKIN: Grossly intact. PERTINENT TESTING: Event monitor from 08/05/2016 to 09/04/2016 sinus rhythm, bradycardia seems to be when patient is awake, longest pause was 3.1 seconds and bradycardia seems to correlate with symptoms. Echocardiogram in July 2016, ejection fraction preserved at 55-59%. Nondilated cardiac chambers and trace mitral regurgitation. EKGs 07/22/2016 sinus rhythm at 76 beats per minute, normal intervals. EKG today sinus rhythm, 94 beats per minute with normal intervals. EKG back in 2012, sinus rhythm at 70 beats per minute, normal intervals. PERTINENT LABORATORY WORK TODAY: CBC: WBC 5.65, hemoglobin 13.7, hematocrit 40.6, platelets 148. Chemistry: Sodium 141, potassium 3.8, chloride 108, carbon dioxide 27, BUN 17, creatinine 0.75, glucose 74, calcium 8.9. D-dimer 330. Chest x-ray is unremarkable. IMPRESSION: 1. Syncope. 2. Sinus bradycardia with a 3.1 second pause. 3. Recurrent lightheadedness, dizziness with near syncope suspicious for etiology of sinus arrest given the bradycardia on the bed monitor. 4. Hypertension. 5. Liver hemangioma. 6. Endometriosis. PLAN: Would recommend admitting her overnight on telemetry, monitoring her, keep her n.p.o. We have had a long discussion and she is agreeable to go straight with the pacemaker. I did inform her that most likely this will relieve her symptoms, but there is always that 1% chance that she could still have lightheadedness and dizziness, presyncope with the pacemaker. We discussed the procedure in detail along with the possible risks. Risks include but not limited to sudden cardiac , arrhythmias, cerebrovascular accident, myocardial infarction, injury to the blood vessels, chamber of the heart, lungs, bleeding and infection. The patient understood these risks and agreed to the procedure as planned. She will remain n.p.o. after midnight. She will have clindamycin fire protection equipment technician to medical laboratory manager.. TITUS
[2016-08-31] MEDS ORDERED: ZOLP10TA PO (13:21)
[2016-08-31] MEDS ORDERED: DEXM1CAP PO (13:21)
[2016-08-31] MEDS ORDERED: DICY10CA12 PO (13:21)
[2016-08-31] MEDS ORDERED: DROS1TAB2 PO (13:21)
[2016-08-31] MEDS ORDERED: VALA1TAB2 PO (13:21)
[2016-08-31] MEDS ORDERED: SUMA50TA15 PO (13:21)
[2016-08-31] MEDS ORDERED: ONDA4TAB65 PO (13:21)
[2016-08-31] MEDS ORDERED: FLUT0.15 (13:21)
[2016-08-31] MEDS ORDERED: NURSING VERBAL MED ORDER ONE (13:30)
--- NOTE | 2016-08-31 13:34 | History and Physical ---
History & Physical Date & Time of Service: August 31, 2016 ~ 10:30 Chief Complaint: Near Syncope Primary Care Physician: Celi Agustin D.O. History of Present Illness 40 year old female who presents to the ER with near syncope. Patient had a syncopal event about one month ago and has been having multiple presyncopal events since that time. She was evaluated by cardiology and had an outpatient holter monitor placed that showed episodes of bradycardia with pauses. Patient was then evaluated by EP and was going to have a tilt table and LINQ recorder placed, however due to continued symptoms she presented to the ER today. Patient reports she has had episodes daily for the past 4 days. She reports they typically were occurring when she would stand up. She reports then her legs would feel weak and she would feel lightheaded, dizzy, and diaphoretic. Sitting down would alleviate the symptoms and it would typical last a few minutes. Earlier in the week, she developed the symptoms while laying in bed. Patient reports she otherwise has been feeling well. She denies chest pain, palpitations, or shortness of breath. No abdominal pain, nausea, vomiting, or diarrhea. She denies fever and chills. No urinary symptoms. In the ER today, patient's labs are unremarkable and EKG demonstrates NSR. Patient was evaluated by Dr. Denson (EP) in the ER who is planning on pacemaker insertion tomorrow. Past Medical/Surgical History Medical Problems: (1) ADHD (attention deficit hyperactivity disorder) Status: Chronic (2) Hypothyroidism Status: Chronic (3) Liver hemangioma Permanent Comment: s/p embolization Status: Chronic Family History Diabetes mellitus FATHER Hypertension FATHER Social History Smoking Status: Never Smoker Alcohol Use: occasionally Immunizations History of Influenza Vaccine: Yes Influenza Vaccine Date: Jan 25, 2016 History of Tetanus Vaccine?: Yes Tetanus Immunization Date: Nov 15, 2007 Multi-Drug Resistant Organisms History of MDRO: No Allergies Coded Allergies: Cephalosporins (Unverified Allergy, Intermediate, HIVES, 07/22/16) Penicillins (Verified Allergy, Unknown, 07/22/16) Vancomycin (Verified Allergy, Unknown, ANAPHYLAXIS, 07/22/16) Adhesives (Verified Adverse Reaction, Unknown, "SENSITIVE TO TAPE", 07/22/16 ) Home Medications Scheduled Dexmethylphenidate HCl (Dexmethylphenidate HCl ER), 20 MG PO DAILY Docusate Sodium (Colace), 1 CAP PO DAILY Drospirenone-Ethinyl Estradiol (Loryna), 1 TAB PO DAILY Levothyroxine Sodium (Synthroid), 150 MCG PO DAILY Scheduled PRN Dicyclomine Hcl (Dicyclomine Hcl), 1 CAP PO QID PRN for abdominal pain Fexofenadine Hcl (Gianna Allergy), 1 TAB PO DAILY PRN for ALLERGIC REACTION Fluticasone Propionate (Nasal) (Flonase Allergy Relief), 2 SPRAY NA DAILY PRN for Nasal Congestion Ondansetron Hcl (Zofran), 1 TAB PO Q6H PRN for Nausea Sumatriptan Succinate (Imitrex), 50 MG PO PRN PRN for Migraine Valacyclovir Hcl (Valtrex), 1,000 MG PO BID PRN for cold sores Zolpidem Tartrate (Ambien), 1 TAB PO HS PRN for Insomnia Review of Systems ROS per HPI, all other systems reviewed and negative Physical Exam Vital Signs Date Time Temp Pulse Resp B/P Pulse Ox O2 Delivery O2 Flow Rate FiO2 08/31/16 13:01 36.7 47 18 118/79 100 Room Air 08/31/16 10:47 36.6 76 18 116/77 100 Room Air 08/31/16 10:25 36.6 76 18 116/77 100 Room Air 08/31/16 09:49 78 18 114/75 97 Room Air 08/31/16 09:26 74 08/31/16 08:11 82 16 105/54 100 Room Air 08/31/16 07:09 100 Room Air 08/31/16 06:59 84 08/31/16 06:47 36.5 96 18 104/75 100 Room Air General Appearance: no apparent distress Head: normocephalic Eyes: normal inspection ENT: hearing grossly normal Neck: supple, no JVD Respiratory/Chest: lungs clear, normal breath sounds, no respiratory distress Cardiovascular: regular rate, rhythm, no edema, normal peripheral pulses Abdomen/GI: normal bowel sounds, non tender, soft Extremities/Musculoskelatal: normal inspection, no calf tenderness Neurologic/Psych: no motor/sensory deficits, alert, normal mood/affect, oriented x 3 Skin: normal color, warm/dry Diagnostics Laboratory Results Results Past 24 Hours Test 08/31/16 07:05 Range/Units White Blood Count 5.65 4.8-10.8 K/uL Red Blood Count 4.31 4.2-5.4 M/uL Hemoglobin 13.7 12.0-16.0 g/dL Hematocrit 40.6 37-47 % Mean Corpuscular Volume 94.2 80-100 fL Mean Corpuscular Hemoglobin 31.8 25-34 pg Mean Corpuscular Hemoglobin Concent 33.7 32-36 g/dl Platelet Count 148 130-400 K/uL Mean Platelet Volume 9.7 7.4-10.4 fL Neutrophils (%) (Auto) 50.7 % Lymphocytes (%) (Auto) 40.2 % Monocytes (%) (Auto) 8.0 % Eosinophils (%) (Auto) 0.7 % Basophils (%) (Auto) 0.2 % Neutrophils # (Auto) 2.87 1.4-6.5 K/uL Lymphocytes # (Auto) 2.27 1.2-3.4 K/uL Monocytes # (Auto) 0.45 0.11-0.59 K/uL Eosinophils # (Auto) 0.04 0-0.5 K/uL Basophils # (Auto) 0.01 0-0.2 K/uL RDW Standard Deviation 44.4 36.4-46.3 fL RDW Coefficient of Variation 12.8 11.5-14.5 % Immature Granulocyte % (Auto) 0.2 % Immature Granulocyte # (Auto) 0.01 0.00-0.02 K/uL D-Dimer 330 0-500 ug/L FEU Sodium Level 141 136-145 mmol/L Potassium Level 3.8 3.5-5.1 mmol/L Chloride Level 108 98-107 mmol/L Carbon Dioxide Level 27 21-32 mmol/L Anion Gap 6.0 3-11 mmol/L Blood Urea Nitrogen 17 7-18 mg/dl Creatinine 0.75 0.60-1.20 mg/dl Est Creatinine Clear Calc Drug Dose 105.3 ml/min Estimated GFR () 116.4 Estimated GFR (Non- 100.4 BUN/Creatinine Ratio 22.3 10-20 Random Glucose 74 70-99 mg/dl Calcium Level 8.9 8.5-10.1 mg/dl Total Creatine Kinase 35 26-192 U/L Creatine Kinase MB < 0.5 0.5-3.6 ng/ml Creatine Kinase MB Ratio 0-3.0 Troponin I < 0.015 0-0.045 ng/ml Diagnostic Radiology CXR IMPRESSION: Minimal interstitial change left base. Otherwise negative study Impression Assessment and Plan Heart-regular,no murmur NEAR SYNCOPE. SYMPTOMATIC BRADYCARDIA - admit to tele - patient presenting with multiple near syncopal events; outpatient holter monitor showed episodes of sinus bradycardia with pauses which correlated with patient's symptoms - patient evaluated by Dr. Denson - planning for pacemaker tomorrow - currently patient is in NSR HYPOTHYROIDISM - continue levothyroxine DVT PROPHYLAXIS - SCDs DISPO - In my clinical judgment this beneficiary meets acute admission criteria, established by [facility], that includes being hospitalized through two midnights. Attending Addendum: The patient was seen and examined Symptoms of occasional and recently frequent Presyncope Has had a few Holter without ant significant findings Admitted with Syncope with 3.1 sec s pause O/E Hemodynamically stable Chest-clear to ausucltate bilaterally Heart-regular Abdomen-benign,no masses,bowel sound present DENTAL FRONT OFFICE ASSISTANT-AAOx3 Labs and Imaging studies were reviewed Evaluated by software licensing specialist Recurrent Syncope due to Sinus bradycardia with a 3.1 second pause. Agree with Assessment and plan. Dr Lianne Saul Advanced Directives Existing Living Will: No Existing Power of Dental Front Office Assistant: No VTE Prophylaxis VTE Risk Assessment Done? Y/N: Yes Risk Level: Low
[2016-08-31] MEDS: [UNRECOGNIZED DRUG - REMARK] SCH ×2 (16:00→23:02)
[2016-09-01] VITALS (13 sets, daily range): BP systolic 94–116; BP diastolic 57–73; PULSE 55–74; TEMP 36.5–36.9; O2SAT 98–100
[2016-09-01] MEDS ORDERED: CLINDAMYCIN IV 600 MG in DEXTROSE 5% ADD-VANTAGE 50ML 50 ML IV SCH (06:00)
[2016-09-01] MEDS: LEVOTHYROXINE 150 MCG TAB PO SCH (06:03)
[2016-09-01 06:59] LABS: HEMATOCRIT 41.6 % (37-47); MEAN CELL VOLUME 94.3 fL (80-100); MEAN CORPUSCULAR HEMOGLOBIN 31.5 pg (25-34); MEAN CORPUSCULAR HGB CONC 33.4 g/dl (32-36); MEAN PLATELET VOLUME 9.7 fL (7.4-10.4); PLATELET COUNT 153 K/uL (130-400); RED BLOOD COUNT 4.41 M/uL (4.2-5.4); WHITE BLOOD COUNT 6.49 K/uL (4.8-10.8)
[2016-09-01 07:31] LABS: BUN/CREATININE RATIO 16.5 (10-20); CALCIUM 8.2 mg/dl (8.5-10.1); CREATININE 0.71 mg/dl (0.60-1.20); MAGNESIUM 2.2 mg/dl (1.8-2.4)
[2016-09-01] MEDS: DOCUSATE SODIUM 100 MG CAP PO SCH (07:36)
[2016-09-01] MEDS: [UNRECOGNIZED DRUG - REMARK] SCH ×3 (07:36→23:56)
--- NOTE | 2016-09-01 10:31 | History & Physical Bridge Note ---
H&P Re-Evaluation Bridge Note: I have examined the patient, reviewed the History & Physical and in the interval since the performance of the History & Physical I have noted the following changes of clinical significance: No changes noted
--- NOTE | 2016-09-01 10:31 | Procedure Note ---
Pre-Mod Sedation Assessment General Date of Moderate Sedation: September 01, 2016. Vital Signs: Vital Signs Past 12 Hours Date Time Temp Pulse Resp B/P Pulse Ox O2 Delivery O2 Flow Rate FiO2 09/01/16 08:00 Room Air 09/01/16 07:18 36.9 60 18 100/64 100 Room Air 09/01/16 04:00 Room Air 09/01/16 03:42 36.7 69 17 94/58 98 Room Air 08/31/16 23:59 Room Air 08/31/16 23:39 36.8 73 19 104/67 100 Room Air Review Cardiovascular: regular rate, rhythm Abdomen: soft Lungs: lungs clear Airway Class: II Pre-Sedation Airway Assessment Oral Cavity: WNL Short Thick Neck: No Hx of Sleep Apnea: No Smoking Status: Never Smoker Mallampati Classification: Class II ASA Classification: Class II Procedure Planning Contraindications-for Mod Sed: None Yes Notes The planned sedation has been discussed with the patient and consent obtained. I have identified the patient, determined the appropriateness of sedation and have assessed the patient immediately prior to the procedure. All medicine(s) and interventions are by my order.
[2016-09-01] MEDS ORDERED: BUPIVACAINE 0.5 % 5 MG/1 ML MPF 30ML VIAL ONE (11:06)
[2016-09-01] MEDS ORDERED: BACITRACIN 50000 UNIT VIAL ONE (11:06)
[2016-09-01] MEDS ORDERED: LIDOCAINE HCL 1% 20 ML VIAL ONE (11:06)
[2016-09-01] MEDS ORDERED: FENTANYL CITRATE INJ 50 MCG/1 ML 2 ML VIAL ONE ×2 (11:17→11:34)
[2016-09-01] MEDS ORDERED: MIDAZOLAM HCL 5 MG/ML 1 ML VIAL ONE (11:18)
[2016-09-01] MEDS ORDERED: MIDAZOLAM HCL 1 MG/ML 2ML VIAL ONE (12:01)
--- NOTE | 2016-09-01 12:31 | Procedure Note ---
Post-Mod Sedation Assessment General Date of Moderate Sedation September 01, 2016. Vital Signs: Vital Signs Past 12 Hours Date Time Temp Pulse Resp B/P Pulse Ox O2 Delivery O2 Flow Rate FiO2 09/01/16 12:25 62 16 93/55 96 Room Air 09/01/16 11:26 36.7 73 18 116/73 100 Room Air 09/01/16 10:42 36.9 60 18 100/64 100 Room Air 09/01/16 08:00 Room Air 09/01/16 07:18 36.9 60 18 100/64 100 Room Air 09/01/16 04:00 Room Air 09/01/16 03:42 36.7 69 17 94/58 98 Room Air Review - Discharge Criteria Vital Signs Stable: Yes Alert/Oriented/Conversant: Yes Returned to Baseline Mental St: Yes Nausea Absent/Minimal: Yes Pain/Discomfort/Absent/Minimal: Yes Active Bleeding?: No Pt Received D/C Instructions: N/A Prescriptions Given: None Specific Proced. D/C Criteria Distal Pulses Present (Cardiac: N/A Groin site assessed-Card Cath: N/A Voided Prior To Discharge: N/A Discharged Patients Adult Escort/Transportation: N/A
--- NOTE | 2016-09-01 12:33 | [facility] Post Operative Brief Note ---
Immediate Operative Summary Operative Date September 01, 2016. Pre-Operative Diagnosis SYNCOPE, BRADYCARDIA SYMPTOMATIC, INTERMITTENT SINUS ARREST Post-Operative Diagnosis SAME Procedure(s) Performed DUAL CHAMBER PERMANENT PACEMAKER Surgeon RICHY HAMLIN Blood Bank Laboratory Professional Surgeon(s) NONE Estimated Blood Loss <10CC Findings NONE Fluids (cc crystalloids) 250CC Specimens NONE Drains NONE Anesthesia 6MG VERSED AND 150MCG FENTANYL Complication(s) None Disposition PCU
[2016-09-01] MEDS ORDERED: ACETAMINOPHEN 325 MG TAB PO PRN (12:45)
[2016-09-01] MEDS: OXYCODONE/ACETAMINOPHEN 5-325 TAB PO PRN ×2 (13:38→20:01)
[2016-09-01] MEDS ORDERED: KETOROLAC TROMETHAMINE 30 MG/ML VIAL IV ONE (16:17)
--- NOTE | 2016-09-01 16:29 | Progress Note ---
Internal Med Progress Note Date of Service: September 01, 2016. Provider Documentation: SUBJECTIVE: The patient was seen this morning and after the PPM implantation Has some pain following the insertion of PPM No More syncope OBJECTIVE: Vital Signs-as noted below Exam: General-No distress at rets Eyes-normal ENT-normal Neck-supple Lungs-Clear to ausucltate bilaterally Heart-Regular Abdomen-Benign,no masses,bowel sound present Extremities-No edema Neuro-AAOx3 Lab data as noted below. ASSESSMENT & PLAN: Heart-regular,no murmur NEAR SYNCOPE. SYMPTOMATIC BRADYCARDIA Symptoms of occasional and recently frequent Presyncope Has had a few Holter without ant significant findings Admitted with Syncope with 3.1 sec s pause Patient evaluated by Dr. Denson - s/p PPM placement today 09/01/16 Remains stable following the procedure Minimal pain at the procedure site No other complaints HYPOTHYROIDISM - continue levothyroxine DVT PROPHYLAXIS - SCDs DISPO Likely discharge tomorrow Vital Signs: Date Time Temp Pulse Resp B/P Pulse Ox O2 Delivery O2 Flow Rate FiO2 09/01/16 16:00 Room Air 09/01/16 15:14 36.9 70 16 97/57 99 Room Air 09/01/16 14:14 36.8 65 18 97/65 99 Room Air 09/01/16 13:35 71 16 101/65 100 Room Air 09/01/16 13:02 74 18 100/71 99 Room Air 09/01/16 12:58 Room Air 09/01/16 12:49 63 16 100/63 100 Room Air 09/01/16 12:35 68 16 102/55 96 Room Air 09/01/16 12:25 62 16 93/55 96 Room Air 09/01/16 11:26 36.7 73 18 116/73 100 Room Air 09/01/16 10:42 36.9 60 18 100/64 100 Room Air 09/01/16 08:00 Room Air 09/01/16 07:18 36.9 60 18 100/64 100 Room Air 09/01/16 04:00 Room Air 09/01/16 03:42 36.7 69 17 94/58 98 Room Air 08/31/16 23:59 Room Air 08/31/16 23:39 36.8 73 19 104/67 100 Room Air 08/31/16 20:00 100 Room Air 08/31/16 19:49 36.7 72 16 107/73 100 Room Air Lab Results: Results Past 24 Hours Test 09/01/16 06:31 09/01/16 06:33 Range/Units White Blood Count 6.49 4.8-10.8 K/uL Red Blood Count 4.41 4.2-5.4 M/uL Hemoglobin 13.9 12.0-16.0 g/dL Hematocrit 41.6 37-47 % Mean Corpuscular Volume 94.3 80-100 fL Mean Corpuscular Hemoglobin 31.5 25-34 pg Mean Corpuscular Hemoglobin Concent 33.4 32-36 g/dl RDW Standard Deviation 43.9 36.4-46.3 fL RDW Coefficient of Variation 12.7 11.5-14.5 % Platelet Count 153 130-400 K/uL Mean Platelet Volume 9.7 7.4-10.4 fL Sodium Level 141 136-145 mmol/L Potassium Level 4.0 3.5-5.1 mmol/L Chloride Level 108 98-107 mmol/L Carbon Dioxide Level 29 21-32 mmol/L Anion Gap 4.0 3-11 mmol/L Blood Urea Nitrogen 12 7-18 mg/dl Creatinine 0.71 0.60-1.20 mg/dl Est Creatinine Clear Calc Drug Dose 111.2 ml/min Estimated GFR () 124.4 Estimated GFR (Non- 107.3 BUN/Creatinine Ratio 16.5 10-20 Random Glucose 89 70-99 mg/dl Calcium Level 8.2 8.5-10.1 mg/dl Magnesium Level 2.2 1.8-2.4 mg/dl
[2016-09-01] MEDS ORDERED: ZOLPIDEM TARTRATE 5 MG TAB PO PRN (16:30)
--- NOTE | 2016-09-01 16:54 | OPERATIVE REPORT ---
DATE OF OPERATION: 09/01/2016 PREOPERATIVE DIAGNOSES: Syncope, symptomatic bradycardia with up to 3.1 second sinus arrest pause. POSTOPERATIVE DIAGNOSES: Same. PROCEDURE: Dual chamber rate responsive permanent pacemaker under fluoroscopic guidance. SURGEON: Sarah Denson DO LANGUAGE SPECIALIST: None. ANESTHESIA: Monitored conscious sedation given a total of 6 mg of Versed, 150 mcg of fentanyl administered by Angela Medina under my supervision. Start time 11:21 and end time 12:20. COMPLICATIONS: None. CONDITION: Stable. URINE OUTPUT: Not applicable. SPECIMENS: None. FINDINGS: None. SPECIMENS: None. BLOOD LOSS: Less than 10 mL. INDICATIONS FOR PROCEDURE: This is a 40-year-old female who has a past medical history of syncope with recurrent near syncope associated with lightheadedness, dizziness, and legs giving out. She wore a Cardionet monitor that demonstrated significant bradycardia with up to 3.1 seconds pause with sinus arrest, liver hemangioma, endometriosis and hypotension. Due to her recurrent syncope and near syncope and associated significant bradycardia with sinus arrest, was recommended a dual chamber permanent pacemaker. CONSENT: Consent was obtained prior to the patient going into the electrophysiology lab. The patient was explained of risks, benefits, alternatives to the procedure. Risks include but not limited to sudden cardiac , cardiac arrhythmias, cerebrovascular accident, myocardial infarction, injury to the blood vessels, chamber of heart and lungs, bleeding or infection. The patient understood these risks and agreed to go to the procedure as planned. DESCRIPTION OF THE PROCEDURE: The patient was brought into the electrophysiology lab in a fasting state. The patient was connected to the continuous lieutenant ballistics. A timeout was performed to ensure patient's identity and procedure correctly. The patient was prepped and draped over the left infraclavicular space in a normal surgical standard fashion. Monitored conscious sedation was given throughout the procedure for the patient's comfort level. [place] precautions were maintained throughout the procedure. The patient received prophylactic antibiotics prior to incision. 20 mL of 1% lidocaine, bupivacaine mixture were given in the left deltopectoral groove. Incision was made in the left deltopectoral groove. Blunt dissection was performed down to identify the cephalic vein. The cephalic vein was identified and isolated using 0 silk ties. The vein was mixed with an 11 blade and a guidewire was inserted without any resistance. An 8-Tajik sheath was inserted over the guidewire without any resistance. A dilator was removed and then a second guidewire was inserted through the sheath to allow for retained venous access. A second 8-Tajik sheath was inserted over the guidewire and the guidewire and dilator were removed. A right ventricular pacing lead was then passed through the sheath and positioned into the right ventricle apex under fluoroscopic guidance. There was adequate pacing and sensing thresholds and no diaphragmatic stimulation with high output pacing. The 8-Tajik sheath was peeled away and lead was fixated to the pectoralis muscle using 0 silk suture. A second 8-Tajik sheath was inserted over the guidewire without any resistance. The guidewire and dilator were removed. The right atrial lead was advanced into the right atrium and positioned into the right atrial appendage under fluoroscopic guidance. There was adequate pacing and sensing thresholds and no diaphragmatic stimulation with high output pacing. The 8-Tajik sheath was peeled away and lead was fixated to the pectoralis muscle using 0 silk suture. Additional 10 mL of 1% lidocaine, bupivacaine mixture were given in the pectoralis fascia and then using blunt dissection, a pacemaker pocket was created over the pectoralis muscle within the pectoralis fascia. The pocket was inspected for hemostasis and flushed with copious amounts of bacitracin saline wash. The new pulse generator was attached to the leads making sure that the pins were in appropriate position, passed the set screws and the set screws were all tightened. The pulse generator was then placed in the pocket, making sure that the leads were lying flat beneath the device and a stay stitch using 0 silk suture was used to secure the device to the pectoralis muscle. The incision was then closed in a 3-layer fashion with 2-0 Vicryl interrupted suture, followed by a 3-0 Vicryl interrupted suture, followed by a 4-0 Monocryl running stitch and Dermabond was applied. EQUIPMENT: 1. The pulse generator is a Max Rumpus Advisrosalba Johnson [id number], serial #[id number]. 2. Right atrial lead Medtronic 5076-52 cm, serial [id number]. 3. Right ventricular lead, Medtronic 5076-58 cm, serial #[id number]. INTRAOPERATIVE TESTIN. Right atrial lead: P-waves 5.3 millivolts, impedance 565 ohms, threshold 0.4 volts at 0.6 milliamps. 2. Right ventricular lead: R-wave 8.6 millivolts, impedance 761 ohms, threshold 0.4 volts at 0.4 milliamps. FINAL MEASUREMENTS THROUGH THE DEVICE: 1. Right atrial lead: P-wave 3.9 millivolts, impedance 437 ohms, threshold 0.75 volts at 0.4 milliseconds. 2. Right ventricular lead: R-wave 9 millivolts, impedance 551 ohms, threshold 0.5 volts at 0.4 milliseconds. FINAL PARAMETERS: MVP-R 50/150. Right atrial amplitude 3.5 volts, pulse width 0.4 milliseconds, sensitivity 0.3 millivolts. Right ventricular amplitude 3.5 volts, pulse width 0.4 milliseconds, sensitivity 1.2 millivolts. IMPRESSION: Successful implantation of a dual chamber rate responsive permanent pacemaker under fluoroscopic guidance secondary to syncope and intermittent sinus arrest with significant bradycardia with 3.1 second pause. PLAN: Monitor patient overnight, 12-lead ECG, chest x-ray. She is not allowed to lift the left elbow over left shoulder for 1 month. She cannot lift more than 10 pounds with the left arm for 2 weeks. She can shower tomorrow, let water run over the incision, do not scrub it. She should follow up in our [facility] office for device and wound check in 7-10 days. I attest to the content of the Intraoperative Record and any orders documented therein. Any exceptions are noted below. TITUS
[2016-09-01] MEDS: KETOROLAC TROMETHAMINE 30 MG/ML VIAL IV PRN (22:57)
[2016-09-01] MEDS: PROMETHAZINE HCL INJ 12.5 MG in SODIUM CHLORIDE 0.9% 50ML 50 ML IV PRN (23:22)
[2016-09-02 02:35] VITALS: BP 98/61; PULSE 60; TEMP 36.6; O2SAT 100
[2016-09-02] MEDS: OXYCODONE/ACETAMINOPHEN 5-325 TAB PO PRN ×3 (02:45→12:01)
[2016-09-02 04:00] VITALS: O2SAT 100
[2016-09-02] MEDS: LEVOTHYROXINE 150 MCG TAB PO SCH (05:51)
[2016-09-02] MEDS: KETOROLAC TROMETHAMINE 30 MG/ML VIAL IV PRN ×2 (05:53→09:55)
[2016-09-02 06:42] LABS: HEMATOCRIT 39.4 % (37-47); MEAN CELL VOLUME 93.6 fL (80-100); MEAN CORPUSCULAR HEMOGLOBIN 30.6 pg (25-34); MEAN CORPUSCULAR HGB CONC 32.7 g/dl (32-36); MEAN PLATELET VOLUME 9.6 fL (7.4-10.4); PLATELET COUNT 151 K/uL (130-400); RED BLOOD COUNT 4.21 M/uL (4.2-5.4)
--- NOTE | 2016-09-02 07:13 | DIAGNOSTIC IMAGING REPORT ---
CHEST 2 VIEWS ROUTINE CLINICAL HISTORY: CHEST X-RAY FOR PACEMAKER PLACEMENT COMPARISON STUDY: 08/21/2016 FINDINGS: The cardiac and mediastinal contours remain stable. There is no failure. There is no focal pulmonary consolidation. There has been interval placement of a left subclavian dual-chamber central venous pacemaker. There is no pneumothorax. The electrode position is unremarkable.[ IMPRESSION: No evidence of pneumothorax status post placement of a left subclavian dual-chamber central venous pacemaker. Electronically signed by: Alireza De La Cruz M.D. 09/02/2016 7:11 AM Dictated Date/Time: 09/02/2016 7:11 AM
[2016-09-02 07:14] LABS: BUN/CREATININE RATIO 17.7 (10-20); CALCIUM 8.6 mg/dl (8.5-10.1); CREATININE 0.77 mg/dl (0.60-1.20); MAGNESIUM 2.2 mg/dl (1.8-2.4); POTASSIUM 4.2 mmol/L (3.5-5.1)
[2016-09-02] MEDS: DOCUSATE SODIUM 100 MG CAP PO SCH (07:37)
[2016-09-02] MEDS: [UNRECOGNIZED DRUG - REMARK] SCH (07:40)
[2016-09-02 07:47] VITALS: BP 111/68; PULSE 65; TEMP 36.8; O2SAT 100
--- NOTE | 2016-09-02 09:03 | Cardiology Follow-Up ---
Subjective Subjective Date of Service: September 02, 2016. Pt evaluation today including: conversation w/ patient, physical exam, chart review, lab review, review of studies, review of inpatient medication list Additional Details: Pt seen and examined, states that she's felt a little shaky overnight with continued pain at pocket site, phenergan helpful. Denies sob, palpitations, lightheadedness, dizziness or syncope. Tele reviewed: sinus rhythm without arrhythmia Pacer interrogation: approx 1% pacing overnight Problem List Medical Problems: (1) Low serum phosphorus for age Status: Acute (2) Near syncope Status: Acute (3) Right flank pain Status: Acute Review of Systems Respiratory: No cough, No dyspnea at rest, No dyspnea on exertion, No hemoptysis, No problem reported, No see HPI, No shortness of breath, No sputum, No wheezing Cardiac: No PND, No chest pain, No claudication, No edema, No orthopnea, No palpitations, No problem reported, No see HPI Endo: + fatigue Objective Vital Signs Last Vital Signs Documentation Date Time Temp Pulse Resp B/P Pulse Ox O2 Delivery O2 Flow Rate FiO2 09/02/16 08:00 Room Air 09/02/16 07:47 36.8 65 18 111/68 100 Physical Exam: General Appearance: WD/WN, no apparent distress Eyes: bilateral eyes EOMI, bilateral eyes PERRL, bilateral eyes normal inspection ENT: normal ENT inspection, hearing grossly normal, pharynx normal Neck: supple, no adenopathy, thyroid normal, no JVD, no carotid bruits, trachea midline Respiratory/Chest: chest non-tender, lungs clear, normal breath sounds, no respiratory distress, no accessory muscle use Cardiovascular: regular rate, rhythm, no edema, no gallop, no JVD, no murmur Abdomen: normal bowel sounds, non tender, soft, no organomegaly, no pulsatile mass Extremities: normal range of motion, non-tender, normal inspection, no pedal edema, no calf tenderness 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 primary conduction system disease s/p pacemaker insertion some pacing overnight cxr reviewed: good placement no pneumo pocket site clean will need continued pain control for pocket site pain also asking for phenergan for nausea pocket check in 1 week f/u with Dr. Denson in 3-4 weeks would recommend holding of egd until seen by Dr. Denson 2. shakiness definitely not cardiac at this point likely a combination of pain, narcotics and anesthesia ok to d/c to home from cardiac standpoint.
--- NOTE | 2016-09-02 11:17 | Progress Note ---
Internal Med Progress Note Date of Service: September 02, 2016. Provider Documentation: SUBJECTIVE: The patient was seen this morning and after the PPM implantation Has some pain following the insertion of PPM No More syncope S/P PPM placement 09/01/16 Has some pain locally A little drowsy OBJECTIVE: Vital Signs-as noted below Exam: General-No distress at rest Eyes-normal ENT-normal Neck-supple Lungs-Clear to ausucltate bilaterally Heart-Regular Abdomen-Benign,no masses,bowel sound present Extremities-No edema Neuro-AAOx3 Lab data as noted below. ASSESSMENT & PLAN: NEAR SYNCOPE. SYMPTOMATIC BRADYCARDIA Heart-regular,no murmur Symptoms of occasional and recently frequent Presyncope Has had a few Holter without ant significant findings Admitted with Syncope with 3.1 sec s pause Patient evaluated by Dr. Denson - s/p PPM placement today 09/01/16 Remains stable following the procedure Minimal pain at the procedure site Pacemaker if firing when needed Will go home today HYPOTHYROIDISM - continue levothyroxine DVT PROPHYLAXIS - SCDs DISPO Discharge home today Vital Signs: Date Time Temp Pulse Resp B/P Pulse Ox O2 Delivery O2 Flow Rate FiO2 09/02/16 08:00 Room Air 09/02/16 07:47 36.8 65 18 111/68 100 Room Air 09/02/16 04:00 100 Room Air 09/02/16 02:35 36.6 60 15 98/61 100 Room Air 09/01/16 23:59 100 Room Air 09/01/16 22:59 36.5 55 16 104/60 100 Room Air 09/01/16 20:00 100 Room Air 09/01/16 19:14 36.6 63 16 98/62 100 Room Air 09/01/16 16:00 Room Air 09/01/16 15:14 36.9 70 16 97/57 99 Room Air 09/01/16 14:14 36.8 65 18 97/65 99 Room Air 09/01/16 13:35 71 16 101/65 100 Room Air 09/01/16 13:02 74 18 100/71 99 Room Air 09/01/16 12:58 Room Air 09/01/16 12:49 63 16 100/63 100 Room Air 09/01/16 12:35 68 16 102/55 96 Room Air 09/01/16 12:25 62 16 93/55 96 Room Air 09/01/16 11:26 36.7 73 18 116/73 100 Room Air Lab Results: Results Past 24 Hours Test 09/02/16 05:48 Range/Units White Blood Count 6.90 4.8-10.8 K/uL Red Blood Count 4.21 4.2-5.4 M/uL Hemoglobin 12.9 12.0-16.0 g/dL Hematocrit 39.4 37-47 % Mean Corpuscular Volume 93.6 80-100 fL Mean Corpuscular Hemoglobin 30.6 25-34 pg Mean Corpuscular Hemoglobin Concent 32.7 32-36 g/dl RDW Standard Deviation 42.5 36.4-46.3 fL RDW Coefficient of Variation 12.5 11.5-14.5 % Platelet Count 151 130-400 K/uL Mean Platelet Volume 9.6 7.4-10.4 fL Sodium Level 141 136-145 mmol/L Potassium Level 4.2 3.5-5.1 mmol/L Chloride Level 109 98-107 mmol/L Carbon Dioxide Level 26 21-32 mmol/L Anion Gap 6.0 3-11 mmol/L Blood Urea Nitrogen 14 7-18 mg/dl Creatinine 0.77 0.60-1.20 mg/dl Est Creatinine Clear Calc Drug Dose 102.5 ml/min Estimated GFR () 112.7 Estimated GFR (Non- 97.3 BUN/Creatinine Ratio 17.7 10-20 Random Glucose 113 70-99 mg/dl Calcium Level 8.6 8.5-10.1 mg/dl Magnesium Level 2.2 1.8-2.4 mg/dl
[2016-09-02] MEDS: PROMETHAZINE HCL INJ 12.5 MG in SODIUM CHLORIDE 0.9% 50ML 50 ML IV PRN (11:26)
[2016-09-02 11:39] VITALS: BP 109/69; PULSE 77; TEMP 36.9; O2SAT 100
[2016-09-02] MEDS ORDERED: PROM25TA9 PO (13:21)
[2016-09-02] MEDS ORDERED: OXYC-57 PO (13:21)
--- NOTE | 2016-09-02 13:24 | Discharge Instructions ---
Discharge Instructions Date of Service September 02, 2016. Admission Reason for Admission: Near Syncope Discharge Discharge Diagnosis / Problem: Syncopy secondary to Sinus pauses,S/P PPM Discharge Goals Goal(s): Prevent Disease Progression Activity Recommendations Activity Limitations: resume your previous activity . Instructions / Follow-Up Instructions / Follow-Up Dr Kimberley Atkins on 09/08/16 at 10:45 AM,Please Keep cardiology appointment Current Hospital Diet Patient's current hospital diet: Gluten Free Diet Discharge Diet Recommended Diet: Regular Diet, Gluten Free Diet Procedures Procedures Performed: DUAL CHAMBER PERMANENT PACEMAKER Pending Studies Studies pending at discharge: no Medical Emergencies . Who to Call and When: Medical Emergencies: If at any time you feel your situation is an emergency, please call 911 immediately. . Non-Emergent Contact Non-Emergency issues call your: Primary Care Provider . Past History Medical & Surgical History: (1) Cardiac syncope (2) Hypothyroidism (3) Liver hemangioma (4) ADHD (attention deficit hyperactivity disorder) . "Provider Documentation" section prepared by Iris Saul. . VTE Core Measure Inpt VTE Proph given/why not?: SCD's
[2016-09-02 13:28] VITALS: BP 109/69; PULSE 77; TEMP 36.9; O2SAT 100
--- NOTE | 2016-09-03 09:19 | Discharge Summary ---
Discharge Summary Date of Service September 03, 2016. Discharge Summary Admission Date: August 31, 2016 at 09:20 Discharge Date: September 02, 2016 Discharge Disposition: Home Principal Diagnosis: Syncope secondary to Sinus pauses,S/P PPM Secondary Diagnoses/Problems: Please see H&P and Hospital progress note Procedures: PPM placement Consultations: Cardiology Medication Reconciliation New Medications: Promethazine Hcl (Phenergan) 25 Mg Tab 12.5 MG PO Q4H PRN for Nausea for 10 Days, #20 TAB Oxycodone/Acetaminophen 5MG/325MG (Percocet 5MG/325MG) Tab 1 TAB PO Q6H PRN for Pain, #20 TAB PAIN Continued Medications: Dexmethylphenidate HCl (Dexmethylphenidate HCl ER) 20 Mg Cap 20 MG PO DAILY Dicyclomine Hcl (Dicyclomine Hcl) 10 Mg Cap 1 CAP PO QID PRN for abdominal pain for 25 Days, #100 CAP 3 Refills Docusate Sodium (Colace) 100 Mg Cap 1 CAP PO DAILY Drospirenone-Ethinyl Estradiol (Loryna) 1 Tab Tab 1 TAB PO DAILY for 28 Days, #28 TAB 11 Refills Fexofenadine Hcl (Gianna Allergy) 180 Mg Tab 1 TAB PO DAILY PRN for ALLERGIC REACTION, TAB 2 Refills Fluticasone Propionate (Nasal) (Flonase Allergy Relief) 50 Mcg/Act Spr 2 SPRAY NA DAILY PRN for Nasal Congestion Levothyroxine Sodium (Synthroid) 150 Mcg Tab 150 MCG PO DAILY, TAB Ondansetron Hcl (Zofran) 4 Mg Tab 1 TAB PO Q6H PRN for Nausea, #10 TAB 1 Refill Sumatriptan Succinate (Imitrex) 50 Mg Tab 50 MG PO PRN PRN for Migraine, TAB Valacyclovir Hcl (Valtrex) 1 Gm Tab 1000 MG PO BID PRN for cold sores, #21 TAB Zolpidem Tartrate (Ambien) 10 Mg Tab 1 TAB PO HS PRN for Insomnia for 30 Days, #30 TAB 5 Refills Admission Information HPI (per Admitting provider): 40 year old female who presents to the ER with near syncope. Patient had a syncopal event about one month ago and has been having multiple presyncopal events since that time. She was evaluated by cardiology and had an outpatient holter monitor placed that showed episodes of bradycardia with pauses. Patient was then evaluated by EP and was going to have a tilt table and LINQ recorder placed, however due to continued symptoms she presented to the ER today. Patient reports she has had episodes daily for the past 4 days. She reports they typically were occurring when she would stand up. She reports then her legs would feel weak and she would feel lightheaded, dizzy, and diaphoretic. Sitting down would alleviate the symptoms and it would typical last a few minutes. Earlier in the week, she developed the symptoms while laying in bed. Patient reports she otherwise has been feeling well. She denies chest pain, palpitations, or shortness of breath. No abdominal pain, nausea, vomiting, or diarrhea. She denies fever and chills. No urinary symptoms. In the ER today, patient's labs are unremarkable and EKG demonstrates NSR. Patient was evaluated by Dr. Denson (EP) in the ER who is planning on pacemaker insertion tomorrow. Past Medical/Surgical History Medical Problems: (1) ADHD (attention deficit hyperactivity disorder) Status: Chronic (2) Hypothyroidism Status: Chronic (3) Liver hemangioma Permanent Comment: s/p embolization Status: Chronic Family History Diabetes mellitus FATHER Hypertension FATHER Social History Smoking Status: Never Smoker Alcohol Use: occasionally Immunizations History of Influenza Vaccine: Yes Influenza Vaccine Date: Jan 25, 2016 History of Tetanus Vaccine?: Yes Tetanus Immunization Date: Nov 15, 2007 Multi-Drug Resistant Organisms History of MDRO: No Allergies Coded Allergies: Cephalosporins (Unverified Allergy, Intermediate, HIVES, 07/22/16) Penicillins (Verified Allergy, Unknown, 07/22/16) Vancomycin (Verified Allergy, Unknown, ANAPHYLAXIS, 07/22/16) Adhesives (Verified Adverse Reaction, Unknown, "SENSITIVE TO TAPE", 07/22/16 ) Home Medications Scheduled Dexmethylphenidate HCl (Dexmethylphenidate HCl ER), 20 MG PO DAILY Docusate Sodium (Colace), 1 CAP PO DAILY Drospirenone-Ethinyl Estradiol (Loryna), 1 TAB PO DAILY Levothyroxine Sodium (Synthroid), 150 MCG PO DAILY Scheduled PRN Dicyclomine Hcl (Dicyclomine Hcl), 1 CAP PO QID PRN for abdominal pain Fexofenadine Hcl (Gianna Allergy), 1 TAB PO DAILY PRN for ALLERGIC REACTION Fluticasone Propionate (Nasal) (Flonase Allergy Relief), 2 SPRAY NA DAILY PRN for Nasal Congestion Ondansetron Hcl (Zofran), 1 TAB PO Q6H PRN for Nausea Sumatriptan Succinate (Imitrex), 50 MG PO PRN PRN for Migraine Valacyclovir Hcl (Valtrex), 1,000 MG PO BID PRN for cold sores Zolpidem Tartrate (Ambien), 1 TAB PO HS PRN for Insomnia Review of Systems ROS per HPI, all other systems reviewed and negative Physical Ex - H&P Physical Exam Vital Signs Date Time Temp Pulse Resp B/P Pulse Ox O2 Delivery O2 Flow Rate FiO2 08/31/16 13:01 36.7 47 18 118/79 100 Room Air 08/31/16 10:47 36.6 76 18 116/77 100 Room Air 08/31/16 10:25 36.6 76 18 116/77 100 Room Air 08/31/16 09:49 78 18 114/75 97 Room Air 08/31/16 09:26 74 08/31/16 08:11 82 16 105/54 100 Room Air 08/31/16 07:09 100 Room Air 08/31/16 06:59 84 08/31/16 06:47 36.5 96 18 104/75 100 Room Air General Appearance: no apparent distress Head: normocephalic Eyes: normal inspection ENT: hearing grossly normal Neck: supple, no JVD Respiratory/Chest: lungs clear, normal breath sounds, no respiratory distress Cardiovascular: regular rate, rhythm, no edema, normal peripheral pulses Abdomen/GI: normal bowel sounds, non tender, soft Extremities/Musculoskelatal: normal inspection, no calf tenderness Neurologic/Psych: no motor/sensory deficits, alert, normal mood/affect, oriented x 3 Skin: normal color, warm/dry Diagnostics - H&P Diagnostics Laboratory Results Results Past 24 Hours Test 08/31/16 07:05 Range/Units White Blood Count 5.65 4.8-10.8 K/uL Red Blood Count 4.31 4.2-5.4 M/uL Hemoglobin 13.7 12.0-16.0 g/dL Hematocrit 40.6 37-47 % Mean Corpuscular Volume 94.2 80-100 fL Mean Corpuscular Hemoglobin 31.8 25-34 pg Mean Corpuscular Hemoglobin Concent 33.7 32-36 g/dl Platelet Count 148 130-400 K/uL Mean Platelet Volume 9.7 7.4-10.4 fL Neutrophils (%) (Auto) 50.7 % Lymphocytes (%) (Auto) 40.2 % Monocytes (%) (Auto) 8.0 % Eosinophils (%) (Auto) 0.7 % Basophils (%) (Auto) 0.2 % Neutrophils # (Auto) 2.87 1.4-6.5 K/uL Lymphocytes # (Auto) 2.27 1.2-3.4 K/uL Monocytes # (Auto) 0.45 0.11-0.59 K/uL Eosinophils # (Auto) 0.04 0-0.5 K/uL Basophils # (Auto) 0.01 0-0.2 K/uL RDW Standard Deviation 44.4 36.4-46.3 fL RDW Coefficient of Variation 12.8 11.5-14.5 % Immature Granulocyte % (Auto) 0.2 % Immature Granulocyte # (Auto) 0.01 0.00-0.02 K/uL D-Dimer 330 0-500 ug/L FEU Sodium Level 141 136-145 mmol/L Potassium Level 3.8 3.5-5.1 mmol/L Chloride Level 108 98-107 mmol/L Carbon Dioxide Level 27 21-32 mmol/L Anion Gap 6.0 3-11 mmol/L Blood Urea Nitrogen 17 7-18 mg/dl Creatinine 0.75 0.60-1.20 mg/dl Est Creatinine Clear Calc Drug Dose 105.3 ml/min Estimated GFR () 116.4 Estimated GFR (Non- 100.4 BUN/Creatinine Ratio 22.3 10-20 Random Glucose 74 70-99 mg/dl Calcium Level 8.9 8.5-10.1 mg/dl Total Creatine Kinase 35 26-192 U/L Creatine Kinase MB < 0.5 0.5-3.6 ng/ml Creatine Kinase MB Ratio 0-3.0 Troponin I < 0.015 0-0.045 ng/ml Diagnostic Radiology CXR IMPRESSION: Minimal interstitial change left base. Otherwise negative study Impression - H&P Impression Assessment and Plan Heart-regular,no murmur NEAR SYNCOPE. SYMPTOMATIC BRADYCARDIA - admit to tele - patient presenting with multiple near syncopal events; outpatient holter monitor showed episodes of sinus bradycardia with pauses which correlated with patient's symptoms - patient evaluated by Dr. Denson - planning for pacemaker tomorrow - currently patient is in NSR HYPOTHYROIDISM - continue levothyroxine DVT PROPHYLAXIS - SCDs DISPO - In my clinical judgment this beneficiary meets acute admission criteria, established by [facility], that includes being hospitalized through two midnights. Attending Addendum: The patient was seen and examined Symptoms of occasional and recently frequent Presyncope Has had a few Holter without ant significant findings Admitted with Syncope with 3.1 sec s pause O/E Hemodynamically stable Chest-clear to ausucltate bilaterally Heart-regular Abdomen-benign,no masses,bowel sound present HOSPITAL CLEANING SPECIALIST-AAOx3 Labs and Imaging studies were reviewed Evaluated by park services specialist Recurrent Syncope due to Sinus bradycardia with a 3.1 second pause. Agree with Assessment and plan. Dr Lianne Saul Advanced Directives Existing Living Will: No Existing Power of Electronic Technician: No VTE Prophylaxis VTE Risk Assessment Done? Y/N: Yes Risk Level: Low Physical Exam (per Admitting): General Appearance: no apparent distress Head: normocephalic Eyes: normal inspection ENT: hearing grossly normal Neck: supple, no JVD Respiratory/Chest: lungs clear, normal breath sounds, no respiratory distress Cardiovascular: regular rate, rhythm, no edema, normal peripheral pulses Abdomen/GI: normal bowel sounds, non tender, soft Extremities/Musculoskelatal: normal inspection, no calf tenderness Neurologic/Psych: no motor/sensory deficits, alert, normal mood/affect, oriented x 3 Skin: normal color, warm/dry Hospital Course NEAR SYNCOPE. SYMPTOMATIC BRADYCARDIA Heart-regular,no murmur Symptoms of occasional and recently frequent Presyncope Has had a few Holter without ant significant findings Admitted with Syncope with 3.1 sec s pause Patient evaluated by Dr. Denson - s/p PPM placement today 09/01/16 Remains stable following the procedure Minimal pain at the procedure site Pacemaker if firing when needed Will go home today HYPOTHYROIDISM - continue levothyroxine DVT PROPHYLAXIS - SCDs DISPO Discharge home today Total time spent on discharge = 35 minutes This includes examination of the patient, discharge planning, medication reconciliation, and communication with other providers. Discharge Instructions Date of Service September 02, 2016. Admission Reason for Admission: Near Syncope Discharge Discharge Diagnosis / Problem: Syncopy secondary to Sinus pauses,S/P PPM Discharge Goals Goal(s): Prevent Disease Progression Activity Recommendations Activity Limitations: resume your previous activity . Instructions / Follow-Up Instructions / Follow-Up Dr Kimberley Atkins on 09/08/16 at 10:45 AM,Please Keep cardiology appointment Current Hospital Diet Patient's current hospital diet: Gluten Free Diet Discharge Diet Recommended Diet: Regular Diet, Gluten Free Diet Procedures Procedures Performed: DUAL CHAMBER PERMANENT PACEMAKER Pending Studies Studies pending at discharge: no Medical Emergencies . Who to Call and When: Medical Emergencies: If at any time you feel your situation is an emergency, please call 911 immediately. . Non-Emergent Contact Non-Emergency issues call your: Primary Care Provider . Past History Medical & Surgical History: (1) Cardiac syncope (2) Hypothyroidism (3) Liver hemangioma (4) ADHD (attention deficit hyperactivity disorder) . "Provider Documentation" section prepared by Iris Saul. . VTE Core Measure Inpt VTE Proph given/why not?: SCD's <Electronically signed by Iris Saul M.D.> Additional Copies To Celi Agustin D.O.
== END 2016-09-02 13:46 | disposition home or self-care (01) | DRG 244 ==
LOC: ENRESERVTM → ENRESERVDT → C.EDB 06:45 → C.2T 09:20 → EDBEDREQ 09:22
PROVIDERS: ADMIT Internal Medicine; ATTEND Internal Medicine
PROC: 0JH606Z Insertion of Pacemaker, Dual Chamber into Chest Subcutaneous Tissue and Fascia, Open Approach (ICD-10-PCS; principal; 2016-09-01 12:00)
PROC: 02HK3JZ Insertion of Pacemaker Lead into Right Ventricle, Percutaneous Approach (ICD-10-PCS; principal; 2016-09-01 12:00)
PROC: 02H63JZ Insertion of Pacemaker Lead into Right Atrium, Percutaneous Approach (ICD-10-PCS; principal; 2016-09-01 12:00)
DX: I45.5 Other specified heart block (principal); R00.1 Bradycardia, unspecified; E03.9 Hypothyroidism, unspecified; F90.9 Attention-deficit hyperactivity disorder, unspecified type; Z79.899 Other long term (current) drug therapy; Z82.49 Family history of ischemic heart disease and other diseases of the circulatory system; Z83.3 Family history of diabetes mellitus

== ENCOUNTER 2016-09-27 09:10 | Emergency (ER) | payer OTHER ==
[~2016-09-27] VITALS: Ht 175.3 cm; Wt 73.8 kg
[~2016-09-27 09:10] MED LIST changes: -BCPILLS PO; +DEXM1CAP PO; +DICY10CA12 PO; +DROS1TAB2 PO; +FLUT0.15; -MRLP17X PO; -MULT-506 PO; -ONDA4TAB46 PO; +ONDA4TAB65 PO; +SUMA50TA15 PO; -TRAM-10 PO; +VALA1TAB2 PO; +ZOLP10TA PO
[2016-09-27 09:20] VITALS: TEMP 36.8; O2SAT 100; Ht 175.3 cm; Wt 73.8 kg
--- NOTE | 2016-09-27 09:32 | EMERGENCY ROOM VISIT NOTE ---
History First contact with patient: 09:22 Chief Complaint: SHORTNESS OF BREATH Stated Complaint: August-PACEMAKER SURG., SOB History of Present Illness The patient is a 41 year old female who presents to the Emergency Room with complaints of shortness of breath, tachycardia and pain between her shoulder blade. Occurred this morning for around 30 minutes while drinking tea, she called in today. She notes similar 5-10 minute episode with tachycardia after having the pacemaker placed which correlates to when her rhythm is paced. She reports this was evaluated by her microsoft access developer and they are making continuing adjustments. The pain between her shoulder blades however is new today with the shortness of breath. Recent pacemaker insertion on September [address] Whyte for bradycardia, pauses and cardiogenic syncope. She currently feels back to her normal self and is symptom free. She was well up until the episode this morning, no ongoing illness. Review of Systems See HPI for pertinent positives & negatives. A total of 10 systems reviewed and were otherwise negative. Past Medical/Surgical History Medical Problems: (1) ADHD (attention deficit hyperactivity disorder) (2) Cardiac syncope (3) Hypothyroidism (4) Liver hemangioma (5) Pacemaker Family History Diabetes mellitus FATHER Hypertension FATHER Social History Smoking Status: Never Smoker Housing Status: lives with family Current/Historical Medications Scheduled Dexmethylphenidate HCl (Dexmethylphenidate HCl ER), 20 MG PO DAILY Docusate Sodium (Colace), 1 CAP PO DAILY Drospirenone-Ethinyl Estradiol (Loryna), 1 TAB PO DAILY Levothyroxine Sodium (Synthroid), 150 MCG PO DAILY Scheduled PRN Dicyclomine Hcl (Dicyclomine Hcl), 1 CAP PO QID PRN for abdominal pain Fexofenadine Hcl (Gianna Allergy), 1 TAB PO DAILY PRN for ALLERGIC REACTION Fluticasone Propionate (Nasal) (Flonase Allergy Relief), 2 SPRAY NA DAILY PRN for Nasal Congestion Sumatriptan Succinate (Imitrex), 50 MG PO PRN PRN for Migraine Valacyclovir Hcl (Valtrex), 1,000 MG PO BID PRN for cold sores Zolpidem Tartrate (Ambien), 1 TAB PO HS PRN for Insomnia Allergies Coded Allergies: Cephalosporins (Unverified Allergy, Intermediate, HIVES, 07/22/16) Gluten (Verified Allergy, Unknown, GI SYMPTOMS, 09/01/16) Penicillins (Verified Allergy, Unknown, 07/22/16) Vancomycin (Verified Allergy, Unknown, ANAPHYLAXIS, 07/22/16) Adhesives (Verified Adverse Reaction, Unknown, "SENSITIVE TO TAPE", 07/22/16 ) Physical Exam Vital Signs Date Time Temp Pulse Resp B/P (MAP) Pulse Ox O2 Delivery O2 Flow Rate FiO2 09/27/16 11:10 73 21 100 09/27/16 11:01 110/66 09/27/16 10:55 73 18 107/71 100 Room Air 09/27/16 10:53 107/71 09/27/16 10:40 80 21 100 09/27/16 10:10 70 24 120/81 100 09/27/16 09:40 82 21 100 09/27/16 09:22 82 09/27/16 09:20 36.8 95 24 120/81 100 Room Air 09/27/16 09:20 100 Room Air 09/27/16 09:20 100 Room Air 09/27/16 09:17 120/81 Physical Exam VITAL SIGNS: were reviewed as above GENERAL: no acute distress SKIN: Warm dry and pink, no rashes, no lesions HEAD: Normocephalic and atraumatic EYES: extraocular muscles intact, pupils equal and reactive to light LUNGS: Normal rate, clear to auscultation, no accessory muscle use HEART: Regular rate and rhythm, heart sounds 1+2, no murmurs ABDOMEN: Soft and nontender, bowel sounds normal EXTREMITIES: Warm and well perfused, no calf tenderness/swelling, no pedal edema. NEUROLOGICALLY: Awake alert and oriented without focal deficit. No facial droop. Medical Decision & Procedures ER Provider Diagnostic Interpretation: CHEST ONE VIEW PORTABLE HISTORY: shortness of breath, back pain COMPARISON: Chest 09/02/2016. FINDINGS: The lungs are clear. Cardiac silhouette is normal in size. No pleural effusions. No pneumothorax. Left-sided dual-chamber pacemaker. IMPRESSION: No acute process. Electronically signed by: Reno Chapman M.D. 09/27/2016 10:05 AM Dictated Date/Time: 09/27/2016 9:58 AM Laboratory Results 09/27/16 09:25 Red Blood Count 4.51, Mean Corpuscular Volume 90.5, Mean Corpuscular Hemoglobin 30.6, Mean Corpuscular Hemoglobin Concent 33.8, Mean Platelet Volume 10.0, Neutrophils (%) (Auto) 48.7, Lymphocytes (%) (Auto) 43.6, Monocytes (%) (Auto) 6.7, Eosinophils (%) (Auto) 0.6, Basophils (%) (Auto) 0.3, Neutrophils # (Auto) 3.28, Lymphocytes # (Auto) 2.94, Monocytes # (Auto) 0.45, Eosinophils # (Auto) 0.04, Basophils # (Auto) 0.02 09/27/16 09:25 Test 09/27/16 09:25 White Blood Count 6.74 K/uL (4.8-10.8) Red Blood Count 4.51 M/uL (4.2-5.4) Hemoglobin 13.8 g/dL (12.0-16.0) Hematocrit 40.8 % (37-47) Mean Corpuscular Volume 90.5 fL (80-100) Mean Corpuscular Hemoglobin 30.6 pg (25-34) Mean Corpuscular Hemoglobin Concent 33.8 g/dl (32-36) Platelet Count 133 K/uL (130-400) Mean Platelet Volume 10.0 fL (7.4-10.4) Neutrophils (%) (Auto) 48.7 % Lymphocytes (%) (Auto) 43.6 % Monocytes (%) (Auto) 6.7 % Eosinophils (%) (Auto) 0.6 % Basophils (%) (Auto) 0.3 % Neutrophils # (Auto) 3.28 K/uL (1.4-6.5) Lymphocytes # (Auto) 2.94 K/uL (1.2-3.4) Monocytes # (Auto) 0.45 K/uL (0.11-0.59) Eosinophils # (Auto) 0.04 K/uL (0-0.5) Basophils # (Auto) 0.02 K/uL (0-0.2) RDW Standard Deviation 41.0 fL (36.4-46.3) RDW Coefficient of Variation 12.4 % (11.5-14.5) Immature Granulocyte % (Auto) 0.1 % Immature Granulocyte # (Auto) 0.01 K/uL (0.00-0.02) Anion Gap 14.0 mmol/L (3-11) Est Creatinine Clear Calc Drug Dose 88.9 ml/min Estimated GFR () 95.3 Estimated GFR (Non- 82.2 BUN/Creatinine Ratio 18.1 (10-20) Calcium Level 8.9 mg/dl (8.5-10.1) Magnesium Level 1.9 mg/dl (1.8-2.4) Troponin I < 0.015 ng/ml (0-0.045) Thyroid Stimulating Hormone (TSH) 1.320 uIu/ml (0.300-4.500) ECG Indication: back/shoulder pain Rate (beats per minute): 83 Rhythm: normal sinus Findings: no acute ischemic change ED Course 8:22 Complete history and physical performed 8:[address] Gutierrez who agrees with above plan and will separately take history and physical 10:44 Patient reassessed after pacemaker interrogation. Lab work and CXR normal. 10:[address] Arguello who will arrange [employer] rep to come in to evaluate pacemaker 11:46 Patient seen after pacemaker check. Continues to be symptom free. Medical Decision Prior records/ancillary studies reviewed. Triage Nursing notes reviewed. Additional history obtained from the patient. The patient's history was concerning for respiratory difficulties. Differential diagnosis: Etiologies such as pacemaker, infections, reactive airway disease, pneumonia, pneumothorax, COPD, CHF, cardiac ischemia, pulmonary embolism, musculoskeletal, gastrointestinal, as well as others were entertained. Physical examination: As above. Unremarkable ER treatment provided: None. Patient symptom free while in the ER Diagnostic interpretation by me: The electrocardiogram was negative for acute ischemic or pathologic change. The labs were unremarkable Imaging studies: Chest x-ray as above. Consultation: A consultation was placed with the Dr Denson who arranged for [employer] rep to evaluate pacemaker. This appears to be an unspecified episode of tachycardia. By the evaluation outlined above emergent etiologies such as CHF, cardiac ischemia, pulmonary embolism, reactive airway disease, pneumonia, pneumothorax, musculoskeletal, serious bacterial infections, as well as others were deemed relatively unlikely. The patient was informed about the findings as listed above. All questions were answered and she pleased with the management plan. Return instructions were outlined and the patient was discharged in stable condition. Referral: The patient was referred back to their microsoft access developer and she will be followed up in pacemaker clinic tomorrow as previously arranged. Consults Time Called: 10:47 Consulting Physician: Dr Denson Returned Call: 10:55 Will contact [employer] rep to come in to see patient rather than over the phone and call back Impression Primary Impression: Tachycardia, unspecified Additional Impression: Shortness of breath Departure Information Dispostion Home / Self-Care Condition GOOD Referrals No Doctor, Assigned (PCP) Sarah Denson D.O. Patient Instructions My [facility] Additional Instructions You were evaluated in the ER for an episode of shortness of breath, tachycardia and back pain which had resolved in the ER. Routine labs and chest XR were unremarkable in the ER. No cause was found on pacemaker interrogation. No cause was found for your episode this morning however you have remained symptom free since being in the ER. Please follow up with your microsoft access developer and pacemaker clinic as previously arranged for further investigations for this. Resident Tracking Resident Involvement: Resident Care Provided Care Provided: Adult ED Problem Qualifiers
[2016-09-27 09:48] LABS: BASO % 0.3 %; BASO ABS # 0.02 K/uL (0-0.2); COMPLETE YES; EOS % 0.6 %; HEMATOCRIT 40.8 % (37-47); IG% 0.1 %; LYMPH % 43.6 %; LYMPH ABS # 2.94 K/uL (1.2-3.4); MEAN CELL VOLUME 90.5 fL (80-100); MEAN CORPUSCULAR HEMOGLOBIN 30.6 pg (25-34); MEAN CORPUSCULAR HGB CONC 33.8 g/dl (32-36); MONO % 6.7 %; NEUT % 48.7 %; PLATELET COUNT 133 K/uL (130-400); RED BLOOD COUNT 4.51 M/uL (4.2-5.4); WHITE BLOOD COUNT 6.74 K/uL (4.8-10.8)
[2016-09-27 10:00] LABS: BLOOD UREA NITROGEN 16 mg/dl (7-18); BUN/CREATININE RATIO 18.1 (10-20); CARBON DIOXIDE 18 mmol/L (21-32); CHLORIDE 111 mmol/L (98-107); CREATININE 0.88 mg/dl (0.60-1.20); GLUCOSE 97 mg/dl (70-99); MAGNESIUM 1.9 mg/dl (1.8-2.4); POTASSIUM 3.5 mmol/L (3.5-5.1); SODIUM 143 mmol/L (136-145)
[2016-09-27 10:02] LABS: CALCIUM 8.9 mg/dl (8.5-10.1)
--- NOTE | 2016-09-27 10:06 | DIAGNOSTIC IMAGING REPORT ---
CHEST ONE VIEW PORTABLE HISTORY: shortness of breath, back pain COMPARISON: Chest 09/02/2016. FINDINGS: The lungs are clear. Cardiac silhouette is normal in size. No pleural effusions. No pneumothorax. Left-sided dual-chamber pacemaker. IMPRESSION: No acute process. Electronically signed by: Reno Chapman M.D. 09/27/2016 10:05 AM Dictated Date/Time: 09/27/2016 9:58 AM
[2016-09-27 12:06] VITALS: BP 112/65; PULSE 81; O2SAT 100
--- NOTE | 2016-09-27 14:20 | EMERGENCY ROOM VISIT NOTE ---
ED Visit Note First contact with patient: 09:22 Resident Physician Supervision Note: I was present with Dr. Mckeon during the history and exam. I discussed the case with the resident and agree with the findings and plan as documented in the note. Documented By: Grant Gutierrez
== END 2016-09-27 12:07 | disposition home or self-care (01) ==
LOC: C.EDB 09:11 → C.EDA 12:07
DX: R00.0 Tachycardia, unspecified (principal); R06.02 Shortness of breath; F90.9 Attention-deficit hyperactivity disorder, unspecified type; R55 Syncope and collapse; E03.9 Hypothyroidism, unspecified; D18.03 Hemangioma of intra-abdominal structures; Z83.3 Family history of diabetes mellitus; Z82.49 Family history of ischemic heart disease and other diseases of the circulatory system

== ENCOUNTER 2016-11-17 06:49 | Emergency (ER) | payer OTHER ==
[~2016-11-17] VITALS: Ht 175.3 cm; Wt 68.0 kg
[~2016-11-17 06:49] MED LIST changes: -ONDA4TAB65 PO; -OXYC-57 PO
[2016-11-17 06:52] VITALS: TEMP 36.5; Ht 175.3 cm; Wt 68.0 kg
[2016-11-17] MEDS ORDERED: SODIUM CHLORIDE 0.9% 1000ML 1,000 ML IV STA (07:04)
[2016-11-17 07:23] LABS: BASO % 0.2 %; BASO ABS # 0.01 K/uL (0-0.2); COMPLETE YES; EOS % 0.9 %; HEMATOCRIT 40.2 % (37-47); IG% 0.2 %; LYMPH % 32.8 %; LYMPH ABS # 2.09 K/uL (1.2-3.4); MEAN CELL VOLUME 94.4 fL (80-100); MEAN CORPUSCULAR HGB CONC 32.8 g/dl (32-36); MEAN PLATELET VOLUME 9.6 fL (7.4-10.4); MONO % 6.7 %; NEUT % 59.2 %; PLATELET COUNT 139 K/uL (130-400); RED BLOOD COUNT 4.26 M/uL (4.2-5.4); WHITE BLOOD COUNT 6.38 K/uL (4.8-10.8)
--- NOTE | 2016-11-17 07:38 | EMERGENCY ROOM VISIT NOTE ---
History First contact with patient: 06:58 Chief Complaint: SHORTNESS OF BREATH Stated Complaint: SOB,INCREASED HEART RATE Nursing Triage Summary: pt to [facility] ED with c/o SOB weakness and c/o feelinglike her heart is racing had a episode of this for 10 min has a pacemaker c/o tightness in chest History of Present Illness The patient is a 41 year old female who presents to the Emergency Room following episode of palpitations. Notes 5 to 10 minute episode of tachycardia associated with shortness of breath. Mild lightheadedness with this. Symptoms have completely resolved without intervention. No other complaints. Nothing made better nor worse. No other symptoms. No syncope, cp, nausea, vomiting, headache, neck pain, abdominal pain, nor other symptoms. Notes mild GI bug over the weekend resolved. Denies . No heavy alcohol use nor drug ingestion. No change in medications. Denies missed nor extra thyroid medication. Notes this happened previously about a month ago and her pacemaker was altered. Pacemaker placed 3 months ago due to cardiogenic syncope. No recent travel nor surgery otherwise. No leg swelling, nor history of dvt/pe. Review of Systems See HPI for pertinent positives & negatives. A total of 8 systems reviewed and were otherwise negative. Past Medical/Surgical History Medical Problems: (1) ADHD (attention deficit hyperactivity disorder) (2) Cardiac syncope (3) Hypothyroidism (4) Liver hemangioma (5) Pacemaker Family History Diabetes mellitus FATHER Hypertension FATHER Social History Smoking Status: Never Smoker Housing Status: lives with family Current/Historical Medications Scheduled Docusate Sodium (Colace), 1 CAP PO DAILY Drospirenone-Ethinyl Estradiol (Loryna), 1 TAB PO DAILY Levothyroxine Sodium (Synthroid), 150 MCG PO DAILY Scheduled PRN Dicyclomine Hcl (Dicyclomine Hcl), 1 CAP PO QID PRN for abdominal pain Fexofenadine Hcl (Gianna Allergy), 1 TAB PO DAILY PRN for ALLERGIC REACTION Fluticasone Propionate (Nasal) (Flonase Allergy Relief), 2 SPRAY NA DAILY PRN for Nasal Congestion Sumatriptan Succinate (Imitrex), 50 MG PO PRN PRN for Migraine Valacyclovir Hcl (Valtrex), 1,000 MG PO BID PRN for cold sores Zolpidem Tartrate (Ambien), 1 TAB PO HS PRN for Insomnia Physical Exam Vital Signs Date Time Temp Pulse Resp B/P (MAP) Pulse Ox O2 Delivery O2 Flow Rate FiO2 11/17/16 11:27 67 16 98/66 100 11/17/16 09:30 62 18 99/62 11/17/16 07:46 74 18 95/67 11/17/16 07:08 87 11/17/16 06:52 36.5 91 22 104/76 100 Physical Exam GENERAL: Patient is mildly anxious appearing and in no acute distress. HEENT: No acute trauma, normocephalic atraumatic, mucous membranes moist, no nasal congestion, no scleral icterus. NECK: No stridor, no adenopathy, no meningismus, trachea is midline. LUNGS: No dyspnea. Clear to auscultation and equal bilaterally. No wheeze, no rhonchi. HEART: Pacemaker left upper chest no evidence infection. Regular rate and rhythm. No murmurs, rubs, gallops appreciated. ABDOMEN: Soft, nontender, bowel sounds positive, no masses appreciated, no peritonitis. BACK: No midline tenderness, no CVA tenderness EXTREMITIES: Normal motion all extremities, no cyanosis, no edema. NEUROLOGIC: Alert and oriented, no acute motor or sensory deficits, no focal weakness, cranial nerves grossly intact. SKIN: No rash, no jaundice, no diaphoresis. Medical Decision & Procedures Laboratory Results 11/17/16 07:13 Red Blood Count 4.26, Mean Corpuscular Volume 94.4, Mean Corpuscular Hemoglobin 31.0, Mean Corpuscular Hemoglobin Concent 32.8, Mean Platelet Volume 9.6, Neutrophils (%) (Auto) 59.2, Lymphocytes (%) (Auto) 32.8, Monocytes (%) (Auto) 6.7, Eosinophils (%) (Auto) 0.9, Basophils (%) (Auto) 0.2, Neutrophils # (Auto) 3.78, Lymphocytes # (Auto) 2.09, Monocytes # (Auto) 0.43, Eosinophils # (Auto) 0.06, Basophils # (Auto) 0.01 11/17/16 07:13 Test 11/17/16 07:13 White Blood Count 6.38 K/uL (4.8-10.8) Red Blood Count 4.26 M/uL (4.2-5.4) Hemoglobin 13.2 g/dL (12.0-16.0) Hematocrit 40.2 % (37-47) Mean Corpuscular Volume 94.4 fL (80-100) Mean Corpuscular Hemoglobin 31.0 pg (25-34) Mean Corpuscular Hemoglobin Concent 32.8 g/dl (32-36) Platelet Count 139 K/uL (130-400) Mean Platelet Volume 9.6 fL (7.4-10.4) Neutrophils (%) (Auto) 59.2 % Lymphocytes (%) (Auto) 32.8 % Monocytes (%) (Auto) 6.7 % Eosinophils (%) (Auto) 0.9 % Basophils (%) (Auto) 0.2 % Neutrophils # (Auto) 3.78 K/uL (1.4-6.5) Lymphocytes # (Auto) 2.09 K/uL (1.2-3.4) Monocytes # (Auto) 0.43 K/uL (0.11-0.59) Eosinophils # (Auto) 0.06 K/uL (0-0.5) Basophils # (Auto) 0.01 K/uL (0-0.2) RDW Standard Deviation 45.0 fL (36.4-46.3) RDW Coefficient of Variation 13.0 % (11.5-14.5) Immature Granulocyte % (Auto) 0.2 % Immature Granulocyte # (Auto) 0.01 K/uL (0.00-0.02) Anion Gap 4.0 mmol/L (3-11) Est Creatinine Clear Calc Drug Dose 86.9 ml/min Estimated GFR () 92.7 Estimated GFR (Non- 80.0 BUN/Creatinine Ratio 21.0 (10-20) Calcium Level 8.7 mg/dl (8.5-10.1) Magnesium Level 1.8 mg/dl (1.8-2.4) Troponin I < 0.015 ng/ml (0-0.045) Medications Administered Medications (Trade) Dose Ordered Sig/Jurgen Route Start Time Stop Time Status Last Admin Dose Admin Sodium Chloride 1,000 ml @ 999 mls/hr Q1H1M STAT IV 11/17/16 07:04 11/17/16 08:04 DC 11/17/16 07:23 999 MLS/HR Medical Decision Differential: NSR, SVT, PACs, PVCs, Cardiac Dysrhythmia, Endocrine Dysfunction, Electrolyte/Metabolic Abnormality, Pulmonary Embolism, Infectious, GI, amongst other pathologies entertained. Very pleasant 41 yr old female with history of cardiogenic syncope and resultant pacemaker implantation 2 months ago. Notes periodic palpitations. Today with 5-10 min episode tachycardia now resolved. Looks well. No distress. No evidence PE/DVT and I do not feel that CTPE indicated. EKG looks ok and labs with mild dehydration consistent with gi bug over weekend. Fluids and feeling well. Cards down to see and feel outpatient monitoring reasonable. Stable and discharged in good condition. Impression Primary Impression: Rapid palpitations Additional Impression: Dehydration Departure Information Dispostion Home / Self-Care Condition GOOD Referrals Celi Agustin D.O. (PCP) Patient Instructions My [facility] Additional Instructions We are always here to help. Return if persistent symptoms or other concerns. Follow up with PCP and Cards as planned. Keep well hydrated and avoid heavy exertion over the next few days. Problem Qualifiers
[2016-11-17 07:39] LABS: BLOOD UREA NITROGEN 19 mg/dl (7-18); CALCIUM 8.7 mg/dl (8.5-10.1); CARBON DIOXIDE 28 mmol/L (21-32); CHLORIDE 110 mmol/L (98-107); GLUCOSE 79 mg/dl (70-99); MAGNESIUM 1.8 mg/dl (1.8-2.4); POTASSIUM 3.9 mmol/L (3.5-5.1); SODIUM 142 mmol/L (136-145)
[2016-11-17 11:27] VITALS: BP 98/66; PULSE 67; O2SAT 100
== END 2016-11-17 11:35 | disposition home or self-care (01) ==
LOC: C.EDB 06:50
DX: R00.2 Palpitations (principal); E86.0 Dehydration; Z95.0 Presence of cardiac pacemaker

== ENCOUNTER → 2016-12-27 | Outpatient (CLI) | payer OTHER ==
[~2016-12-27] MED LIST changes: -DEXM1CAP PO
== END | disposition home or self-care (01) ==
LOC: C.PAPS 14:22
PROVIDERS: ATTEND Physician Assistant
DX: R87.619 Unspecified abnormal cytological findings in specimens from cervix uteri (principal)

== ENCOUNTER → 2016-12-27 | Outpatient (CLI) | payer OTHER ==
[2016-12-29 12:28] LABS: CHLAMYDIA TRACH RNA*** NOT DETECTED (NOT DETECTED); GC (NEIS GONORRHOEAE)RNA** NOT DETECTED (NOT DETECTED)
== END | disposition home or self-care (01) ==
LOC: C.LAB1850 12:16
PROVIDERS: ATTEND Obstetrics & Gynecology
DX: Z20.2 Contact with and (suspected) exposure to infections with a predominantly sexual mode of transmission (principal)

== ENCOUNTER → 2017-01-12 | Outpatient (CLI) | payer OTHER | END | disposition home or self-care (01) | LOC: C.PATHSPEC 17:53 | PROVIDERS: ATTEND Obstetrics & Gynecology | DX: D06.9 Carcinoma in situ of cervix, unspecified (principal) ==

== ENCOUNTER → 2017-01-26 | Outpatient (CLI) | payer OTHER | END | disposition home or self-care (01) | LOC: C.PATHSPEC 17:22 | PROVIDERS: ATTEND Obstetrics & Gynecology | DX: D06.9 Carcinoma in situ of cervix, unspecified (principal); R87.613 High grade squamous intraepithelial lesion on cytologic smear of cervix (HGSIL); N72 Inflammatory disease of cervix uteri ==

== ENCOUNTER 2017-02-25 10:25 | Emergency (ER) | payer OTHER ==
[~2017-02-25] VITALS: Ht 175.3 cm; Wt 78.1 kg
[2017-02-25 10:31] VITALS: TEMP 36.5; Ht 175.3 cm; Wt 78.1 kg
[2017-02-25] MEDS ORDERED: ONDANSETRON 4MG OD TAB PO STA (10:58)
[2017-02-25] MEDS ORDERED: IBUP1CAP9 (11:17)
--- NOTE | 2017-02-25 11:23 | EMERGENCY ROOM VISIT NOTE ---
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 Around 8:45 AM. She helped clean this up and was in a room, and notes that she became nauseous , followed vomiting. She then developed some burning in the chest as well as headache. She states the burning in the chest has resolved but the headache is still there as well as some nausea. She denies chance of . Review of Systems A complete 10-point Review of Systems was discussed with the patient, with pertinent positives and negatives listed in the History of Present Illness. All remaining Review of Systems questions can be considered negative unless otherwise specified. Past Medical/Surgical History Medical Problems: (1) ADHD (attention deficit hyperactivity disorder) (2) Cardiac syncope (3) Hypothyroidism (4) Liver hemangioma (5) Pacemaker Family History Diabetes mellitus FATHER Hypertension FATHER Social History Smoking Status: Never Smoker Housing Status: lives with family Current/Historical Medications Scheduled Docusate Sodium (Colace), 1 CAP PO DAILY Drospirenone-Ethinyl Estradiol (Loryna), 1 TAB PO DAILY Levothyroxine Sodium (Synthroid), 150 MCG PO DAILY Ondasetron Odt (Zofran Odt), 4 MG SL Q6H Scheduled PRN Dicyclomine Hcl (Dicyclomine Hcl), 1 CAP PO QID PRN for abdominal pain Fexofenadine Hcl (Gianna Allergy), 1 TAB PO DAILY PRN for ALLERGIC REACTION Fluticasone Propionate (Nasal) (Flonase Allergy Relief), 2 SPRAY NA DAILY PRN for Nasal Congestion Sumatriptan Succinate (Imitrex), 50 MG PO PRN PRN for Migraine Valacyclovir Hcl (Valtrex), 1,000 MG PO BID PRN for cold sores Zolpidem Tartrate (Ambien), 1 TAB PO HS PRN for Insomnia Miscellaneous Medications Ibuprofen (Ibuprofen) Physical Exam Vital Signs Date Time Temp Pulse Resp B/P (MAP) Pulse Ox O2 Delivery O2 Flow Rate FiO2 02/25/17 11:37 69 20 106/71 100 Room Air 02/25/17 10:31 36.5 78 18 109/73 100 Room Air Physical Exam VITAL SIGNS - Vital signs and nursing notes were reviewed. Stable. GENERAL - 41-year-old female appearing her stated age who is in no acute distress. Communicates well with provider and answers questions appropriately. SKIN - Without rashes. HEAD - NC/AT. EYES - PERRL with EOMI bilaterally. Palpebral conjunctiva pink and moist with no injection noted. EARS - No deformities of external structures noted on gross examination bilaterally. NOSE - Midline and without cyanosis. No epistaxis or purulent drainage noted. MOUTH/OROPHARYNX - Without perioral cyanosis. NECK - Neck with FROM. LUNGS - Chest wall symmetric without accessory muscle use, intercostals retractions, or central cyanosis. Normal vesicular breath sounds CTA B/L. No wheezes, rales, or rhonchi appreciated. CARDIAC - RRR with S1/S2. No murmur, rubs, or gallops appreciated. EXTREMITIES - No clubbing or peripheral cyanosis. No raphael on the extremity. Medical Decision & Procedures Medications Administered Medications (Trade) Dose Ordered Sig/Jurgen Route Start Time Stop Time Status Last Admin Dose Admin Ondansetron HCl (Zofran Odt) 4 mg NOW STAT PO 02/25/17 10:58 02/25/17 10:59 DC 02/25/17 11:12 4 MG Medical Decision Patient was seen and evaluated as above. She presents to us post exposure to formalin. This is utilized to preserve specimens in the operating room. She states that there was a spill, and she helped to clean it up and was exposed to the fumes. She did not any splashes to the skin and eyes or other areas. She states that she was cleaning it she developed nausea, headache followed by vomiting. There is also some chest tightness. She states that this has resolved but now she has a headache and some nausea. She was given 1 Zofran ODT tablet. She appears well. Case was discussed with the attending physician , Dr. Gutierrez. I did speak with the employee exposure individual, Ms. Rosalie Acevedo. We discussed the case, and at this time I believe the patient is stable for outpatient management. She will be given an excuse for later today at work as the headache is persistent. Patient was educated upon management, educated upon worrisome symptoms in which to return, had questions answered prior to discharge, and was discharged home in good condition. In the evaluation and treatment of this patient, the following differential diagnoses were considered: Migraine Headache, Intracranial Hemorrhage, Subdural Hematoma, Subarachnoid Hemorrhage, Cerebral Aneurysm, Temporal/Giant Cell Arteritis, Tension Headache, Meningitis, Encephalitis, or Hydrocephalus. Impression Primary Impression: formaldeyde exposure Additional Impressions: Nausea Headache Departure Information Dispostion Home / Self-Care Condition GOOD Prescriptions Ondasetron Odt (ZOFRAN ODT) 4 Mg Tab 4 MG SL Q6H for Nausea, #6 TAB Prov: Martin Greer PA-C 02/25/17 Referrals Celi Agustin D.O. (PCP) Patient Instructions My [facility] Additional Instructions You have been treated in the Emergency Department your headache and nausea following formaldehyde exposure. You have been prescribed Zofran to be used for any nausea or vomiting. Take as prescribed. For pain control, you can use the following [id number] medicines (if >12 yo): - Regular strength (325mg/tab) Tylenol (acetaminophen) 2 tabs every 4-6 hours as needed. Do not exceed 12 tablets in a 24 hour period. Avoid taking more than 3 grams (3000 mg) of Tylenol per day. This includes any other sources of acetaminophen you may take on a regular basis. Drink plenty of water and stay well hydrated. As with any trip to the Emergency Department, you should follow-up with your Primary Care Provider from today's visit. Return to the emergency department if your symptoms persist despite treatment plan outlined above or if the following symptoms occur: increased fevers, chills , worsening nausea/vomiting, blood in your stool or urine. Problem Qualifiers
[2017-02-25] MEDS ORDERED: ONDA4TAB10 SL (11:29)
[2017-02-25 11:37] VITALS: BP 106/71; PULSE 69; O2SAT 100
== END 2017-02-25 11:39 | disposition home or self-care (01) ==
LOC: C.EDB 10:30 → C.EDC 11:39
DX: T59.2X1A Toxic effect of formaldehyde, accidental (unintentional), initial encounter (principal); R11.0 Nausea; R51 Headache; Y99.0 Civilian activity done for income or pay; F90.9 Attention-deficit hyperactivity disorder, unspecified type; E03.9 Hypothyroidism, unspecified; Z95.0 Presence of cardiac pacemaker; Z79.3 Long term (current) use of hormonal contraceptives; Z83.3 Family history of diabetes mellitus; Z82.49 Family history of ischemic heart disease and other diseases of the circulatory system

== ENCOUNTER → 2017-04-26 | Outpatient (CLI) | payer OTHER ==
[~2017-04-26] MED LIST changes: +GADOXETATE DISODIUM (NON-WT BASED PROCEDURE) IV PRN; +IBUP1CAP9; +NURSING VERBAL MED ORDER ONE; +ONDA4TAB10 SL
--- NOTE | 2017-04-26 15:45 | DIAGNOSTIC IMAGING REPORT ---
MRI OF THE ABDOMEN COMBO CLINICAL HISTORY: Hepatic hemangioma. COMPARISON STUDY: Abdominal MRI dated 06/21/2016. Abdominal CT dated 06/02/2016. TECHNIQUE: MRI of the abdomen is performed transverse T1 and T2-weighted sequences in the axial and coronal planes. Contrast enhanced sequences were acquired following the IV administration of 10 cc of Eovist. Subtraction imaging was utilized. Diffusion-weighted imaging and MRCP images are also acquired. FINDINGS: Lower chest: No pleural effusion is identified. The heart is normal in size. Liver: The liver is normal in size, contour, and signal intensity. No intrahepatic biliary ductal dilatation is seen. The hepatic veins and portal veins are patent. There is unchanged appearance of a 4.7 x 5.9 x 5.1 cm T1 hypointense and T2 hyperintense lesion in the right lobe of the liver. This demonstrates peripheral discontinuous nodular enhancement and progressively fills in following contrast administration. This does not retain Eovist and the kinetics are consistent with a benign hemangioma. No additional hepatic lesion is seen. Gallbladder: The gallbladder is normal in appearance. No gallstones are identified. The common bile duct is normal in caliber, measuring up to 3 mm. There is no evidence of choledocholithiasis. The pancreatic duct is normal in appearance. Spleen: Normal in size and signal intensity. Pancreas: Unremarkable. Adrenal glands: Unremarkable. Kidneys: The kidneys are normal in size and without hydronephrosis. The kidneys enhance and excrete symmetrically. Abdominal aorta: Normal in course and caliber. Bowel: Moderate constipation is observed. Visualized portions of the small bowel and colon show no evidence of obstruction. Peritoneum: There is no abdominal ascites. Lymphadenopathy: None. Skeletal structures: Visualized skeletal structures times are normal marrow signal intensity. IMPRESSION: 1. A 5.9 cm hemangioma in the right lobe of the liver has not significantly changed from prior studies. 2. No additional hepatic lesion is seen. Electronically signed by: Gurdeep Benson M.D. 04/26/2017 3:43 PM Dictated Date/Time: 04/26/2017 3:37 PM
== END | disposition home or self-care (01) ==
LOC: C.MRI 14:18
PROVIDERS: ATTEND Student in an Organized Health Care Education/Training Program
DX: D18.03 Hemangioma of intra-abdominal structures (principal)

== ENCOUNTER → 2017-04-29 | Outpatient (CLI) | payer OTHER ==
[~2017-04-29] MED LIST changes: -GADOXETATE DISODIUM (NON-WT BASED PROCEDURE) IV PRN; -NURSING VERBAL MED ORDER ONE
--- NOTE | 2017-05-03 07:51 | MAMMOGRAPHY REPORT ---
THIS REPORT HAS BEEN AMENDED. BILATERAL DIGITAL SCREENING MAMMOGRAM TOMOSYNTHESIS WITH CAD: 04/29/2017 CLINICAL HISTORY: Routine screening. Patient has no complaints. TECHNIQUE: Breast tomosynthesis in addition to standard 2D mammography was performed. Current study was also evaluated with a Computer Aided Detection (CAD) system. COMPARISON: No prior exams were available for comparison. BREAST COMPOSITION: The tissue of both breasts is heterogeneously dense, which may obscure small mas ses. FINDINGS: A pacemaker projects over the far superior left pectoralis muscle on the MLO view. There a re a few benign-appearing round microcalcifications in the breasts. No suspicious mass, architectura l distortion or cluster of suspicious microcalcifications is seen. IMPRESSION: ACR BI-RADS CATEGORY 1: NEGATIVE There is no mammographic evidence of malignancy. Prior outside mammograms are currently being reques matt and if obtained they will be reviewed, compared to the current exam to assess for any more subtle changes, and an addendum will be made to this report. Otherwise, a 1 year screening mammogram is re commended. The patient will receive written notification of the results. Approximately 10% of breast cancers are not detected with mammography. A negative mammographic report should not delay biopsy if a clinically suggestive mass is present. Joann Perla M.D. ay/:05/02/2017 14:50:18 Choir Leader: Leonora THAO)(Lianne), [facility] letter sent: Normal 04/19 BI-RADS Code: ACR BI-RADS Category 1: Negative AMENDMENT: 05/04/2017 Joann Perla M.D. [facility] became available for review. The gland ular pattern is similar to the prior outside mammogram. No new suspicious masses, asymmetries, focal areas of distortion or suspicious calcifications identified. The left-sided pacemaker is new compar ing to the prior exam. Recommend routine screening tomosynthesis mammography in one year. Amended BI-RADS: ACR BI-RADS Category 1: Negative letter sent: Normal 04/19
== END | disposition home or self-care (01) ==
LOC: C.MAMM 14:59
PROVIDERS: ATTEND Obstetrics & Gynecology
DX: Z12.31 Encounter for screening mammogram for malignant neoplasm of breast (principal)

== ENCOUNTER → 2017-05-05 | Outpatient (CLI) | payer OTHER | END | disposition home or self-care (01) | LOC: C.LAB 10:19 | PROVIDERS: ATTEND Physician Assistant | DX: E03.9 Hypothyroidism, unspecified (principal) ==

== ENCOUNTER 2017-06-17 09:55 | Emergency (ER) | payer OTHER ==
[~2017-06-17] VITALS: Ht 175.3 cm; Wt 72.0 kg
[2017-06-17 10:04] VITALS: Ht 175.3 cm; Wt 72.0 kg
[2017-06-17 10:09] VITALS: O2SAT 99
[2017-06-17 10:13] LABS: BASO % 0.3 %; BASO ABS # 0.03 K/uL (0-0.2); EOS % 0.3 %; EOS ABS # 0.03 K/uL (0-0.5); HEMOGLOBIN 14.6 g/dL (12.0-16.0); IG# 0.02 K/uL (0.00-0.02); LYMPH % 37.2 %; LYMPH ABS # 3.38 K/uL (1.2-3.4); MEAN CELL VOLUME 91.7 fL (80-100); MEAN CORPUSCULAR HEMOGLOBIN 31.9 pg (25-34); MEAN CORPUSCULAR HGB CONC 34.8 g/dl (32-36); MEAN PLATELET VOLUME 9.9 fL (7.4-10.4); MONO % 7.6 %; MONO ABS # 0.69 K/uL (0.11-0.59); NEUT % 54.4 %; NEUT ABS # 4.94 K/uL (1.4-6.5); PLATELET COUNT 148 K/uL (130-400); RED CELL DISTRIBUTION WIDTH SD 43.2 fL (36.4-46.3); WHITE BLOOD COUNT 9.09 K/uL (4.8-10.8)
[2017-06-17 10:35] LABS: ALBUMIN 3.6 gm/dl (3.4-5.0); ALT/SGPT 24 U/L (12-78); AST/SGOT 17 U/L (15-37); BLOOD UREA NITROGEN 19 mg/dl (7-18); CALCIUM 9.3 mg/dl (8.5-10.1); CARBON DIOXIDE 23 mmol/L (21-32); CREATININE 0.88 mg/dl (0.60-1.20); GLUCOSE 92 mg/dl (70-99); POTASSIUM 3.9 mmol/L (3.5-5.1); SODIUM 138 mmol/L (136-145)
[2017-06-17 10:47] LABS: ALKALINE PHOSPHATASE 64 U/L (45-117)
[2017-06-17 12:31] VITALS: BP 104/68
[2017-06-17 12:36] VITALS: PULSE 66; O2SAT 97
--- NOTE | 2017-06-17 13:44 | EMERGENCY ROOM VISIT NOTE ---
History Report prepared by Jose Alejandro: Shelli Lao Under the Supervision of: Dr. Go Jeffries M.D. 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 She was standing while on break when she started feeling her heart racing. She then started feeling SOB, lightheaded, and weak. She felt some tingling in her legs during the palpitations. She no longer has any symptoms, but is feeling fatigued. She has had 3 of these episodes in the past week. 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 She denies any family history of similar heart issues. She denies any recent travel. Pt denies LOC, headache, fevers, chills, diaphoresis, visual changes, neck pain, chest pain, nausea, vomiting, abdominal pain, back pain, melena, hematochezia, urinary symptoms, numbness, weakness, lymphadenopathy, rash, or other complaints. 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 Review of Systems See HPI for pertinent positives and negatives. A total of ten systems were reviewed and were otherwise negative. Past Medical & Surgical Medical Problems: (1) ADHD (attention deficit hyperactivity disorder) (2) Cardiac syncope (3) Hypothyroidism (4) Liver hemangioma (5) Pacemaker Family History Diabetes mellitus FATHER Hypertension FATHER Social History Smoking Status: Never Smoker Housing Status: lives with family Current/Historical Medications Scheduled Docusate Sodium (Colace), 1 CAP PO DAILY Drospirenone-Ethinyl Estradiol (Loryna), 1 TAB PO DAILY Levothyroxine Sodium (Synthroid), 150 MCG PO DAILY Ondasetron Odt (Zofran Odt), 4 MG SL Q6H Scheduled PRN Dicyclomine Hcl (Dicyclomine Hcl), 1 CAP PO QID PRN for abdominal pain Fexofenadine Hcl (Gianna Allergy), 1 TAB PO DAILY PRN for ALLERGIC REACTION Fluticasone Propionate (Nasal) (Flonase Allergy Relief), 2 SPRAY NA DAILY PRN for Nasal Congestion Sumatriptan Succinate (Imitrex), 50 MG PO PRN PRN for Migraine Valacyclovir Hcl (Valtrex), 1,000 MG PO BID PRN for cold sores Zolpidem Tartrate (Ambien), 1 TAB PO HS PRN for Insomnia Miscellaneous Medications Ibuprofen (Ibuprofen) Allergies Coded Allergies: Cephalosporins (Unverified Allergy, Intermediate, HIVES, 06/17/17) Gluten (Verified Allergy, Unknown, GI SYMPTOMS, 06/17/17) Penicillins (Verified Allergy, Unknown, 06/17/17) Vancomycin (Verified Allergy, Unknown, ANAPHYLAXIS, 06/17/17) Adhesives (Verified Adverse Reaction, Unknown, "SENSITIVE TO TAPE", ) Physical Exam Vital Signs Date Time Temp Pulse Resp B/P (MAP) Pulse Ox O2 Delivery O2 Flow Rate FiO2 06/17/17 12:36 66 21 97 06/17/17 12:31 104/68 06/17/17 12:21 71 19 06/17/17 12:06 68 21 100 06/17/17 12:01 102/66 06/17/17 12:00 64 23 100 06/17/17 11:31 107/75 06/17/17 11:30 64 24 100 06/17/17 11:01 106/66 06/17/17 11:00 72 24 100 06/17/17 10:55 81 19 98 06/17/17 10:31 114/75 06/17/17 10:25 79 16 98 06/17/17 10:12 78 06/17/17 10:09 99 Room Air 06/17/17 10:06 Room Air 06/17/17 10:04 77 20 105/72 99 Room Air 06/17/17 10:01 105/72 Physical Exam GENERAL: Awake, alert, well-appearing, in no distress HENT: Normocephalic, atraumatic. Oropharynx unremarkable. EYES: Normal conjunctiva. Sclera non-icteric. NECK: Supple. No nuchal rigidity. FROM. No masses. RESPIRATORY: Clear to auscultation. No wheezes. CARDIAC: Normal rate. Normal rhythm. No murmurs. No rubs. Extremities warm and well perfused. Pulses equal. No JVD. GI: Soft, non-distended. No tenderness to palpation. No rebound or guarding. No masses. RECTAL: Deferred. MUSCULOSKELETAL: Atraumatic. Chest examination reveals no tenderness. The back is symmetrical on inspection without obvious abnormality. There is no CVA tenderness to palpation. No joint edema. LOWER EXTREMITIES: Calves are equal size bilaterally and non-tender. No edema. No discoloration. NEURO: Normal sensorium. No sensory or motor deficits noted. SKIN: No rash or jaundice noted. Medical Decision & Procedures Laboratory Results 06/17/17 09:54 Red Blood Count 4.58, Mean Corpuscular Volume 91.7, Mean Corpuscular Hemoglobin 31.9, Mean Corpuscular Hemoglobin Concent 34.8, Mean Platelet Volume 9.9, Neutrophils (%) (Auto) 54.4, Lymphocytes (%) (Auto) 37.2, Monocytes (%) (Auto) 7.6, Eosinophils (%) (Auto) 0.3, Basophils (%) (Auto) 0.3, Neutrophils # (Auto) 4.94, Lymphocytes # (Auto) 3.38, Monocytes # (Auto) 0.69, Eosinophils # (Auto) 0.03, Basophils # (Auto) 0.03 06/17/17 09:54 Test 06/17/17 09:54 White Blood Count 9.09 K/uL (4.8-10.8) Red Blood Count 4.58 M/uL (4.2-5.4) Hemoglobin 14.6 g/dL (12.0-16.0) Hematocrit 42.0 % (37-47) Mean Corpuscular Volume 91.7 fL (80-100) Mean Corpuscular Hemoglobin 31.9 pg (25-34) Mean Corpuscular Hemoglobin Concent 34.8 g/dl (32-36) Platelet Count 148 K/uL (130-400) Mean Platelet Volume 9.9 fL (7.4-10.4) Neutrophils (%) (Auto) 54.4 % Lymphocytes (%) (Auto) 37.2 % Monocytes (%) (Auto) 7.6 % Eosinophils (%) (Auto) 0.3 % Basophils (%) (Auto) 0.3 % Neutrophils # (Auto) 4.94 K/uL (1.4-6.5) Lymphocytes # (Auto) 3.38 K/uL (1.2-3.4) Monocytes # (Auto) 0.69 K/uL (0.11-0.59) Eosinophils # (Auto) 0.03 K/uL (0-0.5) Basophils # (Auto) 0.03 K/uL (0-0.2) RDW Standard Deviation 43.2 fL (36.4-46.3) RDW Coefficient of Variation 13.0 % (11.5-14.5) Immature Granulocyte % (Auto) 0.2 % Immature Granulocyte # (Auto) 0.02 K/uL (0.00-0.02) Anion Gap 9.0 mmol/L (3-11) Est Creatinine Clear Calc Drug Dose 88.9 ml/min Estimated GFR () 95.3 Estimated GFR (Non- 82.2 BUN/Creatinine Ratio 21.9 (10-20) Calcium Level 9.3 mg/dl (8.5-10.1) Magnesium Level 2.2 mg/dl (1.8-2.4) Total Bilirubin 0.4 mg/dl (0.2-1) Direct Bilirubin 0.1 mg/dl (0-0.2) Aspartate Amino Transf (AST/SGOT) 17 U/L (15-37) Alanine Aminotransferase (ALT/SGPT) 24 U/L (12-78) Alkaline Phosphatase 64 U/L (45-117) Troponin I < 0.015 ng/ml (0-0.045) Total Protein 8.0 gm/dl (6.4-8.2) Albumin 3.6 gm/dl (3.4-5.0) Thyroid Stimulating Hormone (TSH) 1.680 uIu/ml (0.300-4.500) Human Chorionic Gonadotropin, Qual NEG (NEG) Laboratory results reviewed by me ECG Per My Interpretation Indication: palpitations Rate (beats per minute): 70 Rhythm: normal sinus Findings: no acute ischemic change, no ectopy, other (normal intervals) ED Course 1018: The patient was evaluated in room A12B. A complete history and physical exam was performed. 1111: I reevaluated the patient. She is resting comfortably. 1115: I spoke with the [employer] textile [employer] sales representative. Pacemaker interrogation was normal and showed no issues. 1206: I discussed the patient's case with Dr. Sommer, Stephane cardiology. He will evaluate the patient. 1210: Dr. Sommer has evaluated the patient and feels that she can be discharged home to follow up as an outpatient. 1245: I reevaluated the patient. She is feeling great. I discussed results and discharge instructions: She verbalized understanding and agreement. The patient is ready for discharge. Medical Decision Triage Nursing notes reviewed and agree them. The patient's history was concerning for palpitations. Differential diagnosis: Etiologies such as electrolyte abnormality, cardiac dysrhythmia, thyroid dysfunction, pulmonary embolism, infection, gastrointestinal, as well as others were entertained. Physical examination: Benign as above. ER treatment provided: Cardiac monitoring. No medication given On reassessment the patient felt better. Diagnostic interpretation by me: The electrocardiogram was negative for pathologic change. No interval prolongation. No ectopy or dysrhythmia. The labs revealed an unremarkable CBC and chemistry panel. Electrolytes normal. Thyroid normal. Imaging studies: Deferred. Consultation: A consultation was placed with Dr. Sommer cardiology. He evaluated the patient in the Emergency Room. The pacer was interrogated by [employer]. No dysrhythmias were noted. He felt the patient would benefit from a live monitor. The office will arrange this. The patient is completely asymptomatic and has completely normal vital signs with a pulse oximetry 100%. She feels completely normal. She is comfortable with the plan for outpatient follow-up. If she worsens in any way she will be back. She was instructed to try and capture the episode on a cardiogram if it recurs.I gave my usual and customary discussion regarding this issue. By the evaluation outlined above other emergent etiologies such as those listed in the differential, as well as others, were deemed relatively unlikely. The patient was educated about the findings as listed above. All questions were answered and the patient was pleased with the treatment. Return instructions were outlined and the patient was discharged in stable condition. The patient was referred to her job coach/job developer for follow-up for a recheck of the current condition. Medication Reconcilliation Current Medication List: was personally reviewed by me Blood Pressure Screening Patient's blood pressure: Normal blood pressure Blood pressure disposition: Did not require urgent referral Consults Time Called: 1138 Consulting Physician[facility] Returned Call: 1202 I discussed the patient's case with him. He will evaluate the patient. Impression Primary Impression: Palpitations Scribe Attestation The scribe's documentation has been prepared under my direction and personally reviewed by me in its entirety. I confirm that the note above accurately reflects all work, treatment, procedures, and medical decision making performed by me. Departure Information Dispostion Home / Self-Care Referrals Celi Agustin D.O. (PCP) Forms HOME CARE DOCUMENTATION FORM, IMPORTANT VISIT INFORMATION, WORK / SCHOOL INSTRUCTIONS Patient Instructions My [facility] Additional Instructions PALPITATIONS(RAPID OR SKIPPING HEARTBEAT) INSTRUCTIONS: Rest and drink plenty of fluids as tolerated. Continue current medications. Resume normal activities once your symptoms resolve. Eat a heart healthy, low fat, low cholesterol diet. Return to the ER immediately for passing out, chest pain, abdominal pain, vomiting, fevers, difficulty breathing, worsening of your condition, or as needed. Follow up with cardiology as discussed by Dr. Sommer.
== END 2017-06-17 13:01 | disposition home or self-care (01) ==
LOC: EDBD 09:55 → C.EDA 09:56
DX: R00.2 Palpitations (principal); Z95.0 Presence of cardiac pacemaker; F90.9 Attention-deficit hyperactivity disorder, unspecified type; E03.9 Hypothyroidism, unspecified; D18.09 Hemangioma of other sites; Z83.3 Family history of diabetes mellitus; Z82.49 Family history of ischemic heart disease and other diseases of the circulatory system; Z79.899 Other long term (current) drug therapy; Z88.1 Allergy status to other antibiotic agents; Z88.0 Allergy status to penicillin; Z91.048 Other nonmedicinal substance allergy status; Z91.018 Allergy to other foods

== ENCOUNTER 2017-07-07 12:02 | Emergency (ER) | payer OTHER ==
[~2017-07-07] VITALS: Ht 175.3 cm; Wt 75.0 kg
[~2017-07-07 12:02] MED LIST changes: -DICY10CA12 PO; -DOCU-94 PO; -DROS1TAB2 PO; -FEXO1TAB49 PO; -FLUT0.15; -SUMA50TA15 PO; -VALA1TAB2 PO; -ZOLP10TA PO
[2017-07-07 12:05] VITALS: O2SAT 100; Ht 175.3 cm; Wt 75.0 kg
[2017-07-07 12:30] LABS: BASO % 0.3 %; BASO ABS # 0.02 K/uL (0-0.2); EOS % 0.3 %; EOS ABS # 0.02 K/uL (0-0.5); HEMATOCRIT 43.7 % (37-47); HEMOGLOBIN 14.7 g/dL (12.0-16.0); IG# 0.02 K/uL (0.00-0.02); LYMPH % 36.8 %; LYMPH ABS # 2.74 K/uL (1.2-3.4); MEAN CORPUSCULAR HEMOGLOBIN 31.3 pg (25-34); MEAN CORPUSCULAR HGB CONC 33.6 g/dl (32-36); MEAN PLATELET VOLUME 9.7 fL (7.4-10.4); MONO % 5.8 %; MONO ABS # 0.43 K/uL (0.11-0.59); NEUT % 56.5 %; NEUT ABS # 4.22 K/uL (1.4-6.5); PLATELET COUNT 162 K/uL (130-400); RED CELL DISTRIBUTION WIDTH CV 13.1 % (11.5-14.5); RED CELL DISTRIBUTION WIDTH SD 44.9 fL (36.4-46.3); WHITE BLOOD COUNT 7.45 K/uL (4.8-10.8)
[2017-07-07 12:39] LABS: INR 0.9 (0.9-1.1); PTT PATIENT 21.4 SECONDS (21.0-31.0)
--- NOTE | 2017-07-07 12:39 | EMERGENCY ROOM VISIT NOTE ---
History Report prepared by Jose Alejandro: Smith Soriano Under the Supervision of: Dr. Pavel Penny D.O. 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 The patient has a history of SVT and was standing listening to a presentation at work today. She notes that she became suddenly short of breath and could feel palpitations in her chest. She also experienced some "tightness" across the chest. This episode lasted for 10-15 minutes. The patient has a [employer] 2 lead pacemaker placed that had a monitor for the past two weeks. After this monitoring period, the patient did not have any medications changed, but she is following-up to possibly add a new medication. There was no syncopal activity today. 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 Review of Systems See HPI for pertinent positives & negatives. A total of 10 systems reviewed and were otherwise negative. Past Medical & Surgical Medical Problems: (1) ADHD (attention deficit hyperactivity disorder) (2) Cardiac syncope (3) Hypothyroidism (4) Liver hemangioma (5) Pacemaker Family History Diabetes mellitus FATHER Heart disease Hypertension FATHER Social History Drug Use: none Housing Status: lives with family Occupation Status: employed Current/Historical Medications Scheduled Docusate Sodium (Colace), 100 MG PO DAILY Drospirenone-Ethinyl Estradiol (Loryna), 1 TAB PO DAILY Levothyroxine Sodium (Synthroid), 175 MCG PO DAILY Ondasetron Odt (Zofran Odt), 4 MG SL Q6H Scheduled PRN Dicyclomine Hcl (Dicyclomine Hcl), 110 MG PO QID PRN for abdominal pain Fexofenadine Hcl (Gianna Allergy), 1 TAB PO DAILY PRN for ALLERGIC REACTION Fluticasone Propionate (Nasal) (Flonase Allergy Relief), 2 SPRAY NA DAILY PRN for Nasal Congestion Sumatriptan Succinate (Imitrex), 50 MG PO PRN PRN for Migraine Valacyclovir Hcl (Valtrex), 1,000 MG PO BID PRN for cold sores Zolpidem Tartrate (Ambien), 10 MG PO HS PRN for Insomnia Miscellaneous Medications Ibuprofen (Ibuprofen) Allergies Coded Allergies: Cephalosporins (Unverified Allergy, Intermediate, HIVES, 07/07/17) Gluten (Verified Allergy, Unknown, GI SYMPTOMS, 07/07/17) Penicillins (Verified Allergy, Unknown, 07/07/17) Vancomycin (Verified Allergy, Unknown, ANAPHYLAXIS, 07/07/17) Adhesives (Verified Adverse Reaction, Unknown, "SENSITIVE TO TAPE", ) Physical Exam Vital Signs Date Time Temp Pulse Resp B/P (MAP) Pulse Ox O2 Delivery O2 Flow Rate FiO2 07/07/17 12:08 76 07/07/17 12:05 100 Room Air 07/07/17 12:05 73 18 121/80 100 Room Air 07/07/17 12:05 100 Room Air Physical Exam GENERAL: Patient is awake, alert, and in no acute distress. Patient is resting comfortably and showing no signs of anxiety EYES: The conjunctivae are clear. The pupils are round and reactive. EARS, NOSE, MOUTH AND THROAT: The nose is without any evidence of any deformity. Mucous membranes are moist tongue is midline NECK: The neck is nontender and supple. RESPIRATORY: Normal respiratory effort is noted there is no evidence of wheezing rhonchi or rales CARDIOVASCULAR: Regular rate and rhythm noted there no murmurs rubs or gallops normal S1 normal S2 GASTROINTESTINAL: The abdomen is soft. Bowel sounds are present in all quadrants. Abdomen is nontender PELVIS: The Pelvis is stable. No tenderness to palpation is noted. BACK: No midline tenderness or or step-off noted range of motion in flexion extension as well as rotation no signs of muscle spasm noted MUSCULOSKELETAL/EXTREMITIES: There is no evidence of gross deformity full range of motion is noted in the hips and shoulders SKIN: There is no obvious evidence of any rash. There are no petechiae, pallor or cyanosis noted. NEUROLOGIC: Patient is awake alert and oriented x3 Medical Decision & Procedures Laboratory Results 07/07/17 12:20 Red Blood Count 4.70, Mean Corpuscular Volume 93.0, Mean Corpuscular Hemoglobin 31.3, Mean Corpuscular Hemoglobin Concent 33.6, Mean Platelet Volume 9.7, Neutrophils (%) (Auto) 56.5, Lymphocytes (%) (Auto) 36.8, Monocytes (%) (Auto) 5.8, Eosinophils (%) (Auto) 0.3, Basophils (%) (Auto) 0.3, Neutrophils # (Auto) 4.22, Lymphocytes # (Auto) 2.74, Monocytes # (Auto) 0.43, Eosinophils # (Auto) 0.02, Basophils # (Auto) 0.02 07/07/17 12:20 Test 07/07/17 12:20 White Blood Count 7.45 K/uL (4.8-10.8) Red Blood Count 4.70 M/uL (4.2-5.4) Hemoglobin 14.7 g/dL (12.0-16.0) Hematocrit 43.7 % (37-47) Mean Corpuscular Volume 93.0 fL (80-100) Mean Corpuscular Hemoglobin 31.3 pg (25-34) Mean Corpuscular Hemoglobin Concent 33.6 g/dl (32-36) Platelet Count 162 K/uL (130-400) Mean Platelet Volume 9.7 fL (7.4-10.4) Neutrophils (%) (Auto) 56.5 % Lymphocytes (%) (Auto) 36.8 % Monocytes (%) (Auto) 5.8 % Eosinophils (%) (Auto) 0.3 % Basophils (%) (Auto) 0.3 % Neutrophils # (Auto) 4.22 K/uL (1.4-6.5) Lymphocytes # (Auto) 2.74 K/uL (1.2-3.4) Monocytes # (Auto) 0.43 K/uL (0.11-0.59) Eosinophils # (Auto) 0.02 K/uL (0-0.5) Basophils # (Auto) 0.02 K/uL (0-0.2) RDW Standard Deviation 44.9 fL (36.4-46.3) RDW Coefficient of Variation 13.1 % (11.5-14.5) Immature Granulocyte % (Auto) 0.3 % Immature Granulocyte # (Auto) 0.02 K/uL (0.00-0.02) Prothrombin Time 9.8 SECONDS (9.0-12.0) Prothromb Time International Ratio 0.9 (0.9-1.1) Activated Partial Thromboplast Time 21.4 SECONDS (21.0-31.0) Partial Thromboplastin Ratio 0.8 Anion Gap 8.0 mmol/L (3-11) Est Creatinine Clear Calc Drug Dose 100.2 ml/min Estimated GFR () 110.2 Estimated GFR (Non- 95.1 BUN/Creatinine Ratio 29.2 (10-20) Calcium Level 8.9 mg/dl (8.5-10.1) Total Bilirubin 0.3 mg/dl (0.2-1) Direct Bilirubin < 0.1 mg/dl (0-0.2) Aspartate Amino Transf (AST/SGOT) 19 U/L (15-37) Alanine Aminotransferase (ALT/SGPT) 22 U/L (12-78) Alkaline Phosphatase 73 U/L (45-117) Troponin I < 0.015 ng/ml (0-0.045) Total Protein 8.0 gm/dl (6.4-8.2) Albumin 3.6 gm/dl (3.4-5.0) Lipase 160 U/L (73-393) Human Chorionic Gonadotropin, Qual NEG (NEG) Laboratory results per my review. ECG Per My Interpretation Indication: palpitations, SOB/dyspnea Rate (beats per minute): 74 Rhythm: normal sinus Findings: other (No SINCERE/STD, no PVCs) Comparison ECG Date: 06/17/2017 Change: no significant change ED Course 1203: The patient was evaluated in room C11. A complete history and physical examination were performed. 1257: The [employer] interrogation has been completed. This did not show any evidence of SVT recently. 1316: I checked on the patient at this time. She is doing well. 1356: I discussed the case with Dr. Evangelista - Cardiology. He states the patient is safe to go home. He will follow-up in the office next week. 1402: Upon reevaluation, the patient is resting comfortably. I discussed the results and treatment plan with her. She verbalized agreement of the treatment plan. The patient was discharged home. Medical Decision Differential diagnosis: Etiologies such as premature contractions, electrolyte abnormality, cardiac dysrhythmia, thyroid dysfunction, pulmonary embolism, infection, gastrointestinal, as well as others were entertained. Nursing notes reviewed. The patient is a 41-year-old female who presented to the emergency department for an evaluation of palpitations. 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 She started noticing palpitations as well as chest pressure and shortness of breath. Her symptoms resolved prior to arrival. The patient has a history of similar episodes in the past and has a pacemaker. The pacemaker was interrogated but no abnormal dysrhythmias were noted however the patient states that this is common for her pacemaker, it has missed dysrhythmias in the past on interrogation. The patient does have an event monitor. She did use the event monitor while she was having the symptoms close to the end of her symptoms. I discussed patient's laboratory results with her. I discussed her case with the on-call [facility] rental car porter. At this time I feel the patient may follow-up as an outpatient. She was encouraged to rest and avoid any strenuous activity. She was also encouraged to call the rental car porter office as soon as possible about the event monitor so they can interrogate what rhythm it captured. I also encouraged her to continue all medications as prescribed and return to the emergency department immediately if symptoms change worsen or the need arises. Medication Reconcilliation Current Medication List: was personally reviewed by me Blood Pressure Screening Patient's blood pressure: Normal blood pressure Consults Time Called: 1252 Consulting Physician: Dr. Evangelista - Supervisor [employer] Returned Call: [phone] I discussed the case with Dr. Evangelista - Cardiology. He states the patient is safe to go home. He will follow-up in the office next week. Impression Primary Impression: Palpitations Additional Impression: Chest pain Scribe Attestation The scribe's documentation has been prepared under my direction and personally reviewed by me in its entirety. I confirm that the note above accurately reflects all work, treatment, procedures, and medical decision making performed by me. Departure Information Dispostion Home / Self-Care Forms Call Back Authorization, HOME CARE DOCUMENTATION FORM, IMPORTANT VISIT INFORMATION Patient Instructions My [facility] Additional Instructions Call the rental car porter office to follow-up for the event monitor. Rest and avoid any strenuous activity. Continue all medications as prescribed. Return to the emergency department immediately if symptoms change worsening the need arises. Problem Qualifiers Additional Impression: Chest pain Chest pain type: unspecified Qualified Codes: R07.9 - Chest pain, unspecified
[2017-07-07] MEDS ORDERED: SYN175 PO (12:41)
[2017-07-07 12:43] LABS: ALBUMIN 3.6 gm/dl (3.4-5.0); BLOOD UREA NITROGEN 23 mg/dl (7-18); CALCIUM 8.9 mg/dl (8.5-10.1); CARBON DIOXIDE 25 mmol/L (21-32); CREATININE 0.78 mg/dl (0.60-1.20); GLUCOSE 82 mg/dl (70-99); LIPASE 160 U/L (73-393); POTASSIUM 3.7 mmol/L (3.5-5.1); SODIUM 136 mmol/L (136-145)
[2017-07-07 12:52] LABS: ALKALINE PHOSPHATASE 73 U/L (45-117); ALT/SGPT 22 U/L (12-78); AST/SGOT 19 U/L (15-37)
[2017-07-07] MEDS ORDERED: DICY10CA12 PO (13:21)
[2017-07-07] MEDS ORDERED: FLUT0.15 (13:21)
[2017-07-07] MEDS ORDERED: SUMA50TA15 PO (13:21)
[2017-07-07] MEDS ORDERED: VALA1TAB2 PO (13:21)
[2017-07-07] MEDS ORDERED: ZOLP10TA PO (13:21)
[2017-07-07] MEDS ORDERED: DROS1TAB2 PO (13:21)
[2017-07-07 14:31] VITALS: BP 115/65; PULSE 73; O2SAT 99
[2017-07-07] MEDS ORDERED: DOCU-94 PO (14:34)
[2017-07-07] MEDS ORDERED: FEXO1TAB49 PO (14:34)
== END 2017-07-07 14:32 | disposition home or self-care (01) ==
LOC: EDSEX 12:02 → EDBD 12:02 → C.EDC 12:03
DX: R00.2 Palpitations (principal); R07.9 Chest pain, unspecified; F90.9 Attention-deficit hyperactivity disorder, unspecified type; E03.9 Hypothyroidism, unspecified; Z95.0 Presence of cardiac pacemaker; Z83.3 Family history of diabetes mellitus; Z82.49 Family history of ischemic heart disease and other diseases of the circulatory system; Z79.899 Other long term (current) drug therapy; Z88.0 Allergy status to penicillin; Z88.1 Allergy status to other antibiotic agents; Z88.8 Allergy status to other drugs, medicaments and biological substances; Z91.048 Other nonmedicinal substance allergy status; Z91.018 Allergy to other foods

== ENCOUNTER 2017-08-05 09:56 | Emergency (ER) | payer OTHER ==
[~2017-08-05] VITALS: Ht 175.3 cm; Wt 77.7 kg
[~2017-08-05 09:56] MED LIST changes: +DICY10CA12 PO; +DOCU-94 PO; +DROS1TAB2 PO; +FEXO1TAB49 PO; +FLUT0.15; -LEVO150T PO; +SUMA50TA15 PO; +SYN175 PO; +VALA1TAB2 PO; +ZOLP10TA PO
[2017-08-05 10:02] VITALS: TEMP 36.8; Ht 175.3 cm; Wt 77.7 kg
[2017-08-05 10:41] VITALS: BP 118/73; PULSE 84; O2SAT 97
--- NOTE | 2017-08-07 09:22 | EMERGENCY ROOM VISIT NOTE ---
ED Visit Note First contact with patient: 10:12 Chief Complaint: Needlestick injury. History of Present Illness: Ms. Zaidi is a 41-year-old white female who ambulates into the ED reporting a needlestick injury to the posterior proximal femoral necks of the right index finger. 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 Scissors were requested and when she turned around to hand off the scissors to the surgeon she was stuck with a piece of used suture on the right hand. She reports she cleansed the wound initially with alcohol and then soap and water. This occurred approximately 9:45 AM. Currently she is denying all associated symptoms including pain in the area of the needlestick and numbness and tingling throughout the finger. Review of Systems: As noted above in history of present illness. Past Medical History: (1) ADHD (attention deficit hyperactivity disorder) (2) Cardiac syncope (3) Hypothyroidism (4) Liver hemangioma (5) Pacemaker Current Medications: Medications Dose Route/Sig Max Daily Dose Days Date Category Synthroid (Levothyroxine Sodium) 175 Mcg Tab 175 Mcg PO DAILY 07/07/17 Reported Zofran Odt (Ondansetron HCl) 4 Mg Tab 4 Mg SL Q6H 02/25/17 Rx Ibuprofen 200 Mg Cap 02/25/17 Reported Ambien (Zolpidem Tartrate) 10 Mg Tab 10 Mg PO HS PRN 30 08/31/16 Reported Flonase Allergy Relief (Fluticasone Propionate (Nasal)) 50 Mcg/Act Spr 2 [place] NA DAILY PRN 08/31/16 Reported Valtrex (Valacyclovir Hcl) 1 Gm Tab 1,000 Mg PO BID PRN 08/31/16 Reported Imitrex (Sumatriptan Succinate) 50 Mg Tab 50 Mg PO PRN PRN 08/31/16 Reported Loryna (Drospirenone-Ethinyl Estradiol) 1 Tab Tab 1 Tab PO DAILY 28 08/31/16 Reported Dicyclomine Hcl 10 Mg Cap 110 Mg PO QID PRN 25 08/31/16 Reported Gianna Allergy (Fexofenadine Hcl) 180 Mg Tab 1 Tab PO DAILY PRN 06/02/16 Reported Colace (Docusate Sodium) 100 Mg Cap 100 Mg PO DAILY 06/02/16 Reported Allergies to Medications: Adhesive, cephalosporins, gluten, penicillin and vancomycin. Social History: Patient is currently employed; she feels safe in her home environment; she denies tobacco and alcohol use. Tetanus Immunization Status: Patient reports up-to-date. Physical Examination: Vital Signs: Date Time Temp Pulse Resp B/P (MAP) Pulse Ox O2 Delivery O2 Flow Rate FiO2 08/05/17 10:02 36.8 84 20 118/73 97 Room Air GENERAL: 41-year-old female in no acute distress, nontoxic-appearing, afebrile and hemodynamically stable. NEUROLOGICAL: Awake, alert and oriented to person, place and time. Answering questions appropriately and following commands. SKIN: Warm, dry and pink. Right Hand: Single puncture wound noted to the lateral aspect of the palm. No active bleeding. ED Course: Patient is assessed as noted above. Patient's medication list was reviewed. This was considered a significant exposure. Patient was counseled on the explanation of HIV testing, testing as part of the significant exposure protocol and the meaning and results of the testing and the possibility of false positives and false negatives. Consent for testing was reviewed with the patient and she signed. Laboratory tests were drawn and are currently pending. Patient was educated about today's findings and instructed on her treatment plan ; she verbalized understanding and agreement with this plan. Clinical Impression: Significant needlestick injury. Work-related injury. Blood exposure. Disposition: Patient was discharged back to work in stable condition after her blood work was drawn. Plan: Wound care and signs of infection were discussed with the patient. Patient was encouraged to follow-up with employee health for her testing results from today's visit. Patient was encouraged return the ED for any signs of infection or any new/ concerning symptoms.
== END 2017-08-05 10:41 | disposition home or self-care (01) ==
LOC: C.EDB 09:58 → C.EDC 10:41
DX: S61.230A Puncture wound without foreign body of right index finger without damage to nail, initial encounter (principal); W46.1XXA Contact with contaminated hypodermic needle, initial encounter; Y99.0 Civilian activity done for income or pay; Y92.234 Operating room of hospital as the place of occurrence of the external cause; Y93.89 Activity, other specified; F90.9 Attention-deficit hyperactivity disorder, unspecified type; E03.9 Hypothyroidism, unspecified; Z95.0 Presence of cardiac pacemaker; Z91.048 Other nonmedicinal substance allergy status; Z88.0 Allergy status to penicillin; Z88.1 Allergy status to other antibiotic agents; Z88.8 Allergy status to other drugs, medicaments and biological substances

== ENCOUNTER → 2017-08-25 | Outpatient (CLI) | payer OTHER ==
--- NOTE | 2017-08-25 10:56 | DIAGNOSTIC IMAGING REPORT ---
KUB HISTORY: Right flank pain. RENAL COLIC COMPARISON: Liver MRI 04/26/2017. FINDINGS: The bowel gas pattern is unremarkable. There are no dilated loops of small bowel to suggest an obstruction. No renal calculi. No ureteral calculi. No pneumoperitoneum or pneumatosis. Partially calcified right hepatic lobe lesion is again noted. This is better appreciated on the prior MRI. IMPRESSION: No renal or ureteral stones. Electronically signed by: Reno Chapman M.D. 08/25/2017 10:55 AM Dictated Date/Time: 08/25/2017 10:49 AM
== END | disposition home or self-care (01) ==
LOC: C.RAD 10:33
PROVIDERS: ATTEND Urology
DX: N23 Unspecified renal colic (principal)

== ENCOUNTER → 2017-11-29 | Outpatient (CLI) | payer OTHER ==
[~2017-11-29] MED LIST changes: -DROS1TAB2 PO; +DROS1TAB64 PO; -IBUP1CAP9; +IBUP200C80; -ONDA4TAB10 SL; +OXYC-57 PO
== END | disposition home or self-care (01) ==
LOC: C.LAB 13:27
PROVIDERS: ATTEND Obstetrics & Gynecology
DX: R39.9 Unspecified symptoms and signs involving the genitourinary system (principal)

== ENCOUNTER → 2017-12-07 | Outpatient (CLI) | payer OTHER | END | disposition home or self-care (01) | LOC: C.LAB 15:23 | PROVIDERS: ATTEND Physician Assistant | DX: Z13.220 Encounter for screening for lipoid disorders (principal) ==